=== PATIENT | male | born 1970 | race Caucasian/White ===

== ENCOUNTER 2020-04-11 16:44 | Emergency (ER) | payer OTHER, SELFPAY | END 2020-04-11 19:24 | disposition left against medical advice (07) | PROVIDERS: Emergency Provider Emergency Medicine | DX: R10.9 Unspecified abdominal pain (principal) ==

== ENCOUNTER 2021-03-17 12:00 | Emergency (ER) | payer OTHER, SELFPAY ==
--- NOTE | ~2021-03-17 | XR_ITS ---
EXAMINATION: XR ANKLE, LEFT CLINICAL INFORMATION: Left ankle pain status post injury. COMPARISON: None TECHNIQUE: AP, lateral, and mortise views of the left ankle. FINDINGS: There is an acute, minimally displaced oblique fracture of the distal fibular metadiaphysis with adjacent moderate soft tissue swelling. The distal tibia and tarsal bones are intact. There is normal tarsal alignment. XR/XR ankle LT 2V IMPRESSION: Acute, mildly displaced oblique fracture of the distal fibular metadiaphysis with moderate soft tissue swelling.
[2021-03-17 12:04] VITALS: BP 117/76; PULSE 77; RESP 16; TEMP 36.8; O2SAT 99; BMI 25.8
--- NOTE | 2021-03-17 12:10 | ED_ITS ---
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 No head injury or LOC. Pain worsened with weight bearing. Related Data Previous Rx's Medication Instructions Recorded ibuprofen 600 mg tablet 600 mg PO TID PRN #20 tab 03/17/21 oxycodone 5 mg tablet 5 mg PO Q6H PRN #8 tab 03/17/21 Allergies Allergy/AdvReac Type Severity Reaction Status Date / Time No Known Allergies Allergy Unverified 12/22/19 17:21 Review of Systems Review of Systems: Yes all other systems are reviewed and are negative Constitutional: Constitutional: Reports no additional constitutional complaints, Denies body ache(s), Denies chills, Denies fever(s), Denies headache(s) and Denies weakness Eyes: Eyes: Reports no additional eye complaints and Denies change in vision ENT: Reports system reviewed and no additional complaints, except as documented, Denies dizziness, Denies headache(s), Denies nasal congestion, Denies nasal discharge and Denies neck pain Cardiovascular: Cardiovascular: Reports no additional cardiovascular complaints, Denies chest pain, Denies leg edema and Denies dyspnea Respiratory: Respiratory: Reports no additional respiratory complaints, Denies cough and Denies dyspnea Gastrointestinal: Gastrointestinal: Reports no additional gastrointestinal complaints, Denies abdominal pain, Denies diarrhea, Denies nausea and Denies vomiting Genitourinary: Genitourinary: Denies urinary incontinence Musculoskeletal: Musculoskeletal: Reports no additional musculoskeletal complaints, Denies back pain, Reports arthralgias, Denies joint swelling, Denies neck pain, Denies numbness and Denies tingling Integumentary/Breasts: Skin/Breast: Reports system reviewed and no additional complaints, except as docu and Denies rash Neurologic: Reports system reviewed and no additional complaints, except as documented, Denies Abnormal speech present, Denies dizziness, Denies headache(s), Denies numbness, Denies tingling and Denies weakness PMF Past Medical History Attestation statement: The following information was validated with the patient. Source: old records reviewed and nursing notes reviewed Social History Social History Advance Directives: No Advance Directives Information Provided: No Physical Exam Vital Signs: Vital Signs: Last Vital Signs Temp 98.2 F 03/17/21 12:04 Pulse 77 03/17/21 12:04 Resp 16 03/17/21 12:04 BP 117/76 03/17/21 12:04 Pulse Ox 99 03/17/21 12:04 BMI result Body Mass Index 25.8 Const: General: cooperative, healthy appearing, comfortable and no acute distress Orientation/consciousness: patient oriented x3 Limitations: no limitations HENMT: Head: Yes normal to inspection Ears: hearing grossly normal bilaterally General nose exam: Normal external nose present Face and sinus: Yes normal facial exam Mouth: Normal oral and palatal mucosa present Throat: Yes posterior oropharynx normal Eyes: General: appearance normal, both eyes and all related structures Pupils: Equal, round and reactive pupils present Neck: Neck: Yes normal visual inspection Chest: Chest palpation & inspection: normal inspection of the chest Resp: Effort & Inspection: normal respiratory effort Auscultation: clear to auscultation bilaterally Cardio: Rate: regular rate Rhythm: regular rhythm Peripheral pulses: Peripheral pulses 2+ throughout GI: Inspection: Yes normal to inspection Palpation (GI): Soft to palpation and nontender Auscultation: normal bowel sounds Back/Spine/Pelvis: Thoracic/Lumbar Spine: thoracic and lumbar spine normal to inspection Skin: General skin exam: no rashes or lesions noted Neuro: General: patient oriented x3, no focal motor deficits and normal sensation to monofilament Cranial nerves: Yes Equal, round and reactive pupils present Cognition (Neuro): normal cognition Speech: No Abnormal speech present Gait exam (Neuro): Normal gait present Motor exam (neuro): 5/5 motor strength present throughout Extrem: Other: Tenderness over the medial and lateral ankle with swelling, ecchymosis. No posterior ankle ot calf pain. FROM. 2+ DP/PT pulses General: Yes normal to inspection Course Course Course Narrative: 50yo male here with ankle pain after an inversion injury to the left ankle. Will check x-ray 1245- IMPRESSION: Acute, mildly displaced oblique fracture of the distal fibular metadiaphysis with moderate soft tissue swelling. Will place patient in a posterior splint and given crutches for ambulation for home. Recommend follow-up with Orthopedics the next 1-2 days. Reviewed worrisome signs and symptoms of when to return to the emergency department. Comfortable discharge home. MDM - Extremity (Nontraumatic) Medical Records Attestation: I reviewed the patient's medical records. Lab Data Attestation: I reviewed the patient's lab results. Imaging Data left ronda x-ray: Attestation: I personally reviewed and interpreted this imaging study as follows: Radiologist's impression: IMPRESSION: Acute, mildly displaced oblique fracture of the distal fibular metadiaphysis with moderate soft tissue swelling. Procedures Procedure Narrative Procedure Narrative: crutches Orthopedic Splinting/Casting Injury #1: Side: left Lower Extremity Injury Location: ankle Lower Extremity Immobilizer: posterior splint Other Orthopedic Equipment: crutches Discharge Plan Discharge Clinical Impression: Closed left fibular fracture Patient Disposition: Home, Self-Care Instructions: Leg Fracture (ED) Additional Instructions: Splint stays on at all times. Do not get it wet Elevate the leg on 3 or more pillows. NO weight bearing at all. Call orthopedics tomorrow to be seen Prescriptions: New ibuprofen 600 mg tablet 600 mg PO TID PRN (Reason: pain) Qty: 20 RF: 0 oxycodone 5 mg tablet 5 mg PO Q6H PRN (Reason: pain) Qty: 8 RF: 0 Referrals: Katherine Joseph MD [Physician] - 1 day Physician,Unknown J [Primary Care Provider] - 2 days Interventions: ED Discharge Assessment Last Done: 03/17/21 13:07 Discharge Date/Time: 03/17/21 13:08
== END 2021-03-17 13:08 | disposition home or self-care (01) ==
PROVIDERS: Emergency Provider Emergency Medicine
DX: S82.432A Displaced oblique fracture of shaft of left fibula, initial encounter for closed fracture (principal); X50.1XXA Overexertion from prolonged static or awkward postures, initial encounter; Y93.9 Activity, unspecified; Y92.9 Unspecified place or not applicable; Y99.9 Unspecified external cause status
CPT/HCPCS: 29515; 73600; 99283

== ENCOUNTER 2021-03-31 11:22 | Emergency (ER) | payer OTHER, SELFPAY ==
[2021-03-31 11:29] VITALS: BP 142/90; PULSE 60; O2SAT 100
== END 2021-03-31 17:35 | disposition left against medical advice (07) ==
PROVIDERS: Emergency Provider Emergency Medicine
DX: M25.579 Pain in unspecified ankle and joints of unspecified foot (principal)

== ENCOUNTER 2021-04-01 10:19 | Emergency (ER) | payer OTHER, SELFPAY ==
--- NOTE | ~2021-04-01 | US_ITS ---
EXAMINATION: US VENOUS ULTRASOUND WITH DOPPLER LOWER EXTREMITY, LEFT CLINICAL INFORMATION: Left lower extremity pain. Status post of left ankle fracture on 03/17/2021 COMPARISON: Left lower extremity Doppler venous ultrasound of 09/01/2015. TECHNIQUE: Ultrasound of the deep veins is performed from the hip to the calf with compression sonography and color and pulse Doppler assessment. Spectral analysis with color-flow imaging is performed. FINDINGS: There is normal venous compression and respiratory variation and augmented flow. The visualized common femoral vein, femoral vein, profunda femoral vein, popliteal vein, and the trifurcation region as well as peroneal veins and posterior tibial veins shows no evidence of deep venous thrombosis. There is no significant popliteal fossa cyst. If the patient's symptoms persist, followup ultrasound in 5 days 7 days might be of value to exclude proximal propagation from a non-visualized calf vein. US/US venous duplex LE LT IMPRESSION: No DVT demonstrated in the left lower extremity.
--- NOTE | ~2021-04-01 | XR_ITS ---
EXAMINATION: XR FOOT, LEFT CLINICAL INFORMATION: Foot pain COMPARISON: September 23, 2012 TECHNIQUE: AP, lateral, and oblique views of the left foot. FINDINGS: There is no evidence of acute fracture or dislocation of the left foot. Left foot joint spaces maintained. No radiopaque foreign body. There is some deformity from previous fracture about the medial base of the first proximal phalanx. XR/XR foot LT 2V IMPRESSION: No acute bony abnormality of the left foot identified.
--- NOTE | ~2021-04-01 | XR_ITS ---
EXAMINATION: XR ANKLE, LEFT CLINICAL INFORMATION: Left ankle fracture, follow-up. COMPARISON: 03/17/2021 left ankle radiographs. TECHNIQUE: AP, lateral, and mortise views of the left ankle. FINDINGS: Again seen is a mildly displaced oblique fracture at the level the distal fibular metadiaphysis without significant change. Mild to moderate soft tissue swelling is again noted. XR/XR ankle LT min 3V IMPRESSION: Mildly displaced distal left fibular metadiaphysis fracture without significant change. Soft tissue swelling has mildly decreased.
[2021-04-01 11:48] VITALS: BP 137/88; PULSE 90; RESP 18; TEMP 36.7; O2SAT 98; BMI 24.3
--- NOTE | 2021-04-01 12:18 | ED.LOWEXIN ---
HPI - Extremity Injury (Lower) General Chief Complaint: Extremity Injury, Lower Stated Complaint: L Leg Pain Time Seen by Provider: 04/01/21 12:18 Source: patient Mode of arrival: ambulatory Limitations: no limitations History of Present Illness HPI Narrative: This is a 50-year-old male who presents to the emergency department with left ankle/foot pain x15 days. Patient tells me that he was seen here in the emergency department he was told that he had a fracture 15 days ago, they put a splint on his left lower extremity, and he was told to follow-up with orthopedics, however he has not followed up with Orthopedics. Patient tells me that he was discharged home with crutches and a splint and he has not been using his crutches because he does not like them. He tells me he has been bearing weight on his left lower extremity. He reports 10/10 pain constant severe in nature, worse with ambulation and movement better at rest. He also reports pain in the calf area. He reports numbness, paresthesias, chest pain, shortness of breath, fevers, chills, nausea, vomiting, abdominal pain. Initially this injury was sustained secondary to ankle eversion. MD complaint: ankle injury (left ) Onset (ago): day(s) (15) Type of Injury: eversion Place: street/outdoors Severity: severe Severity scale (1-10): 10 Relieving factors: nothing Exacerbating factors: nothing Context: other (tripped on curb ) Associated symptoms: swelling, able to partially bear weight and ambulatory Other symptoms: none Related Data Previous Rx's Medication Instructions Recorded ibuprofen 600 mg tablet 600 mg PO TID PRN #20 tab 03/17/21 oxycodone 5 mg tablet 5 mg PO Q6H PRN #8 tab 03/17/21 oxycodone 5 mg tablet 5 mg PO Q8H PRN #6 tab 04/01/21 Allergies Allergy/AdvReac Type Severity Reaction Status Date / Time No Known Allergies Allergy Verified 04/01/21 11:48 Review of Systems Review of Systems: Constitutional : No Weight loss, No Fever, No Chills, No Fatigue, No Malaise ENT/Mouth : No sore throat, No Rhinorrhea Eyes: No Eye Pain, No Swelling, No Redness Cardiovascular : No Chest Pain, No SOB, No Dyspnea on Exertion, No Orthopnea, No Edema, No Palpitations Respiratory : No Cough, No Sputum, No Wheezing Gastrointestinal : No Nausea, No Vomiting, No Diarrhea, No Constipation, No abdominal Pain, No Hematochezia, No Melena Genitourinary : No Dysuria, No Urinary Frequency, No Hematuria, Musculoskeletal : + joint pain, No Myalgias, + Joint Swelling Skin : No Skin Lesions, No rash Neuro : No Weakness, No Numbness, No Dizziness, No Headache All other systems reviewed and are negative Yes all other systems are reviewed and are negative [facility] Past Medical History Attestation statement: The following information was validated with the patient. Source: old records reviewed and nursing notes reviewed Medical History No pertinent past medical history Social History Social History Advance Directives: No Advance Directives Information Provided: Yes Physical Exam Vital Signs: Vital Signs: Last Vital Signs Temp 98.0 F 04/01/21 11:48 Pulse 67 04/01/21 14:31 Resp 18 04/01/21 14:31 BP 124/77 04/01/21 14:31 Pulse Ox 98 04/01/21 14:31 BMI result Body Mass Index 24.3 VSS Appearance: Alert.? Oriented X3.? No acute distress.? Head: Normocephalic, atraumatic, no step-offs or deformities Eyes: Pupils equal, round and reactive to light.? ENT: Pharynx normal.? Neck: Normal inspection.? Neck supple.? CVS: Normal heart rate and rhythm.? Pulses normal.? Respiratory: No respiratory distress.? Breath sounds normal.? Abdomen: Soft and nontender.? Skin: Skin warm and dry.? Normal skin color.? Normal skin turgor.? Extremities: + 1+ left sided lower extremity pitting edema from knee down, with ecchymosis. + left sided calf tenderness upon palpation + selvin sign on left and negative on right. Capilary refill 2 +. 5/5 strength to bilateral upper and lower extremities. (images below). 1+ DP,PT pulses on left 2+ on right. Back: No midline tenderness, no C-spine tenderness, full range of motion, no CVA tenderness bilaterally Neuro: Oriented X 3.? No motor deficit.? No sensory deficit. Course Reevaluation(s) Reevaluation #1: TT Sirisha with hx and Xray findings. Time: 13:40 Reevaluation #2: DVT study negative. A posterior short leg splint was applied, patient tolerated procedure well. After application of the splint patient had good sensation, and capillary refill. I have educated him on signs and symptoms of compartment syndrome and have told him if he cannot feel his extremity he should return to be evaluated. Sirisha agrees with of a posterior short leg splint. An outpatient ortho follow-up. I have advised patient to call today to schedule an appointment. I will give patient a few more oxycodone for pain however he should follow-up with orthopedics for further evaluation. Adivsed patient to use crutches and not bear weight on that extremity, as this can cause complications in further injury. Comfortable with discharge home with orthopedic and PCP follow-up. I attest that I have reviewed patients [employer], and at the time prescribing the patient a controlled substance is appropriate based off of patients diagnosis and treatment plan. Time: 15:03 MDM - Extremity Injury (Lower) MDM Narrative Medical decision making narrative: 1226 50-year-old male presents to the emergency department with left lower extremity pain, patient was recently diagnosed 15 days ago with a acute, mildly displaced oblique fracture of the distal fibular metadiaphyses w/ moderate swelling. Patient was given crutches and a splint, patient tells me he has not been using crutches because he does not like them. He has been bearing weight to the left lower extremity. Is also advised to follow-up with orthopedics which he has not done. Physical examination significant for 1+ left sided lower extremity pitting edema from knee down, with ecchymosis. There is left sided calf tenderness upon palpation + selvin sign on left and negative on right. Capilary refill 2 +. 5/5 strength to bilateral upper and lower extremities. (picture below). 1+ DP,PT pulses on left 2+ on right. Based off physical exam findings and patient history I will rule out a DVT in the left lower extremity. It is likely that this is nonhealing fracture as patient has been ambulating on his left lower extremity. And has not followed up with orthopedics. I will obtain plain films of the left ankle and foot to ensure no new fractures are identified, and to ensure that fractures of not progressively worsened Medical Records Attestation: I reviewed the patient's medical records. Lab Data Attestation: I reviewed the patient's lab results. Imaging Data Left foot/ankle x-ray: Attestation: I personally reviewed and interpreted this imaging study as follows: Radiologist's impression: XR/XR ankle LT min 3V IMPRESSION: Mildly displaced distal left fibular metadiaphysis fracture without significant change. Soft tissue swelling has mildly decreased. Critical Care Time Critical Care Time Critical Care Time: No Discharge Plan Discharge Clinical Impression: Closed fracture of left fibula Patient Disposition: Home, Self-Care Instructions: Leg Fracture (ED), Crutch Instructions (ED), ORIF of a Leg Fracture (DC) Additional Instructions: Take your medications as prescribed. If you were prescribed antibiotics today, it is important that you take your medication to their entirety, do not skip any doses, do not finish them early. Please use crutches as instructed, putting weight on this extremity can cause further injury and damage. Follow-up with your primary care provider this week. Call orthopedics TODAY to schedule an appointment Return to the emergency department with new or worsening symptoms. In case of emergency call 911 I attest that I have reviewed patients [employer]PAT, and at the time prescribing the patient a controlled substance is appropriate based off of patients diagnosis and treatment plan. Prescriptions: New oxycodone 5 mg tablet 5 mg PO Q8H PRN (Reason: pain) Qty: 6 RF: 0 No Action ibuprofen 600 mg tablet 600 mg PO TID PRN (Reason: pain) Qty: 20 RF: 0 oxycodone 5 mg tablet 5 mg PO Q6H PRN (Reason: pain) Qty: 8 RF: 0 Referrals: Jeffrey Wilson MD [Physician] - 2 days Physician,Fang J [Primary Care Provider] - 2 days Stand Alone Forms: Work/School Release
[2021-04-01 14:31] VITALS: BP 124/77; PULSE 67; RESP 18; O2SAT 98
== END 2021-04-01 15:43 | disposition home or self-care (01) ==
PROVIDERS: Emergency Provider Emergency Medicine
DX: S82.822A Torus fracture of lower end of left fibula, initial encounter for closed fracture (principal); M79.605 Pain in left leg; X50.1XXA Overexertion from prolonged static or awkward postures, initial encounter; Y93.9 Activity, unspecified; Y92.410 Unspecified street and highway as the place of occurrence of the external cause; Y99.9 Unspecified external cause status
CPT/HCPCS: 29515; 73610; 73620; 93971; 99284

== ENCOUNTER → 2021-04-03 12:24 | Outpatient (BNVA) | payer OTHER, SELFPAY | PROVIDERS: Visit Provider Physician Assistant | DX: S82.832A Other fracture of upper and lower end of left fibula, initial encounter for closed fracture (principal) | CPT/HCPCS: 29085; 99202 ==

== ENCOUNTER 2021-04-05 23:37 | Emergency (ER) | payer OTHER, SELFPAY ==
[2021-04-05 23:44] VITALS: BP 105/70; BP 143/91; PULSE 87; PULSE 88; RESP 16; TEMP 36.6; O2SAT 94; O2SAT 97; BMI 24.3
[2021-04-06 00:16] LABS: COVID-19 Test Negative (Negative)
--- NOTE | 2021-04-06 00:20 | ED.ALCOHOL ---
HPI - Alcohol General Chief Complaint: ETOH/Substance Use Stated Complaint: LEFT LEG PAIN S/P PREVIOUS INJURY PER EMS Time Seen by Provider: 04/05/21 23:47 Source: patient Mode of arrival: EMS Limitations: no limitations History of Present Illness HPI narrative: Patient with left fibular fracture in cast was drinking at a bar slurring his words complaining of chronic pain in the left foot no recent fall or injury Related Data Previous Rx's Medication Instructions Recorded ibuprofen 600 mg tablet 600 mg PO TID PRN #20 tab 03/17/21 oxycodone 5 mg tablet 5 mg PO Q6H PRN #8 tab 03/17/21 oxycodone 5 mg tablet 5 mg PO Q8H PRN #6 tab 04/01/21 tramadol 50 mg tablet 50 mg PO Q6H PRN #15 tab 04/06/21 Allergies Allergy/AdvReac Type Severity Reaction Status Date / Time No Known Allergies Allergy Verified 04/01/21 11:48 Review of Systems Review of Systems: Yes all other systems are reviewed and are negative PMFSH Past Medical History Medical History No pertinent past medical history Social History Social History Advance Directives: No Current occupational status: unemployed Current occupation: rt hand Physical Exam Vital Signs: Vital Signs: Last Vital Signs Temp 97.8 F 04/05/21 23:44 Pulse 87 04/05/21 23:44 Resp 16 04/05/21 23:44 BP 105/70 04/05/21 23:44 Pulse Ox 94 04/05/21 23:44 BMI result Body Mass Index 24.3 Appearance: Alert. Oriented X3. No acute distress. etoh+ ENT: Pharynx normal. Oral Mucosa moist atraumatic normocephalic Neck: Normal inspection. Neck supple. CVS: Normal heart rate and rhythm. Pulses normal. Respiratory: No respiratory distress. Equal air entry bilateral, Abdomen: Soft and nontender. Bowel sounds are present, no mass palpable, no CVA tenderness Skin: Skin warm and dry. Normal skin color. Normal skin turgor. Extremities: No lower extremity edema. No calf tenderness left foot in cast Neuro: Oriented X 3. No motor deficit. Ambulatory MDM - Alcohol Lab Data Labs: Lab Results 04/05/21 Range/Units 23:53 COVID-19 ([facility]) Negative (Negative) COVID-19 Clin Com See Note Discharge Plan Discharge Clinical Impression: Alcoholic intoxication Qualifiers: Complication of substance-induced condition: uncomplicated Qualified Code(s): F10.920 - Alcohol use, unspecified with intoxication, uncomplicated Closed fracture of left distal fibula Qualifiers: Encounter type: subsequent encounter Fracture morphology: unspecified fracture morphology Fracture healing: with routine healing Qualified Code(s): S82.832D - Other fracture of upper and lower end of left fibula, subsequent encounter for closed fracture with routine healing Patient Disposition: Home, Self-Care Instructions: Leg Fracture (ED), Abuse of Alcohol (ED) Additional Instructions: Rest at home keep your left leg elevated Tramadol for increased pain Prescriptions: New tramadol 50 mg tablet 50 mg PO Q6H PRN (Reason: pain) Qty: 15 RF: 0 No Action oxycodone 5 mg tablet 5 mg PO Q8H PRN (Reason: pain) Qty: 6 RF: 0 ibuprofen 600 mg tablet 600 mg PO TID PRN (Reason: pain) Qty: 20 RF: 0 oxycodone 5 mg tablet 5 mg PO Q6H PRN (Reason: pain) Qty: 8 RF: 0
[2021-04-06] MEDS: traMADoL HCL 50 MG TABLET PO (00:45)
== END 2021-04-06 00:48 | disposition home or self-care (01) ==
PROVIDERS: Emergency Provider Internal Medicine
DX: F10.920 Alcohol use, unspecified with intoxication, uncomplicated (principal); Y90.9 Presence of alcohol in blood, level not specified; M79.672 Pain in left foot; Z20.822 Contact with and (suspected) exposure to COVID-19; Z79.899 Other long term (current) drug therapy
CPT/HCPCS: 36415; 87635; 99283

== ENCOUNTER 2021-04-23 12:20 | Outpatient (REF) | payer OTHER, SELFPAY ==
--- NOTE | ~2021-04-23 | XR_ITS ---
EXAMINATION: XR ANKLE, LEFT CLINICAL INFORMATION: Left ankle pain COMPARISON: Left ankle x-rays 04/01/2021 TECHNIQUE: AP, lateral, and mortise views of the left ankle. FINDINGS: Again demonstrated is a mildly displaced fracture of the lateral malleolus. There is been mild interval callus formation although the fracture line is still well-visualized. Ankle mortise appears grossly intact. Soft tissue swelling persists over the lateral ankle. A joint effusion is noted. XR/XR ankle LT min 3V IMPRESSION: Mild interval healing of known lateral malleolus fracture.
== END 2021-04-23 12:21 | disposition home or self-care (01) ==
LOC: HO.HOSX 12:20
PROVIDERS: Visit Provider Physician Assistant
DX: S82.832D Other fracture of upper and lower end of left fibula, subsequent encounter for closed fracture with routine healing (principal)
CPT/HCPCS: 29405; 73610; 99212

== ENCOUNTER 2021-05-15 09:46 | Outpatient (REF) | payer OTHER, SELFPAY ==
--- NOTE | ~2021-05-15 | XR_ITS ---
EXAMINATION: XR ANKLE, LEFT CLINICAL INFORMATION: Pain. COMPARISON: 04/23/2021 TECHNIQUE: AP, lateral, and mortise views of the left ankle. FINDINGS: Once again fracture in the distal fibula is seen. There is widening of the medial mortise here. Diffuse soft tissue swelling is seen. Indistinct fracture margins indicate an element of healing. Probable joint effusion is present. XR/XR ankle LT min 3V IMPRESSION: Once again mildly displaced fracture of the distal fibula is seen. Fracture line still visible. There is widening of the medial mortise. Joint effusion is likely present
== END 2021-05-15 09:47 | disposition home or self-care (01) ==
LOC: HO.HOSX 09:46
PROVIDERS: Visit Provider Physician Assistant
DX: S82.832D Other fracture of upper and lower end of left fibula, subsequent encounter for closed fracture with routine healing (principal)
CPT/HCPCS: 73610; 99212

== ENCOUNTER 2021-06-26 11:54 | Outpatient (REF) | payer OTHER, SELFPAY | END 2021-06-26 11:55 | disposition home or self-care (01) | LOC: HO.HOSX 11:54 | PROVIDERS: Visit Provider Physician Assistant | DX: Z13.89 Encounter for screening for other disorder (principal) ==

== ENCOUNTER 2021-07-30 22:16 | Emergency (ER) | payer OTHER, SELFPAY ==
--- NOTE | 2021-07-30 | ECG_ITS ---
Test Reason : overdose Blood Pressure : / mmHG Vent. Rate : 046 BPM Atrial Rate : 046 BPM P-R Int : 154 ms QRS Dur : 108 ms QT Int : 444 ms P-R-T Axes : 007 003 018 degrees QTc Int : 388 ms Sinus bradycardia Otherwise normal ECG When compared with ECG of 21-MAR-2016 16:24, Vent. rate has decreased BY 32 BPM QT has shortened Referred By: Joann Chapin Electronically Signed By:REJI PEREZ
--- NOTE | ~2021-07-30 | CT_ITS ---
EXAMINATION: CT HEAD WITHOUT CONTRAST CT CERVICAL SPINE WITHOUT CONTRAST CLINICAL INFORMATION: Loss of consciousness. EtOH. COMPARISON: CT head from 03/21/2016. TECHNIQUE: Contiguous axial imaging was performed from the skull base to vertex without intravenous administration of contrast. Contiguous axial imaging was performed from the upper chest through the skull base without intravenous administration of contrast. Coronal and sagittal reformats were obtained at the acquisition workstation. DLP: 1346 mGy-cm FINDINGS: Head: Prominent hyperattenuating left hemispheric subdural hematoma measuring up to 2.4 cm in depth. Associated extensive sulcal effacement of the left cerebral hemisphere and 1.6 cm rightward midline shift. Partial effacement of the left lateral ventricle. The third ventricle is decompressed. The right lateral ventricle is mildly expanded beyond baseline at this time. Few regions of linear hyperattenuation along the left parietal lobe suggestive of small volume subarachnoid blood products. No evidence of overt intraparenchymal hemorrhage at this time. There is moderate medialization of the left-sided uncus with mild rightward deviation of the brainstem. Apparent mild hypoattenuation of the left parietal lobe white matter without demonstrated overt loss of person-white matter differentiation. No acute soft tissue or osseous abnormalities. Mild mucosal thickening of the paranasal sinuses. The mastoid air cells and middle ear cavities are clear. Cervical Spine: Mildly motion degraded exam. The atlantooccipital and atlantoaxial articulations remain well aligned. Congenital fusion of C2-C3. Straightening of the normal cervical lordosis. Otherwise, there is anatomic alignment of the vertebral bodies and posterior elements. No evidence of acute fracture or subluxation. The vertebral body heights are maintained. Mild degenerative disc disease at C3-C4 and C5-C6. There is no prevertebral soft tissue swelling. The thyroid gland and remaining cervical soft tissues are normal in appearance. The lung apices demonstrate no abnormalities. CT/CT cervical spine wo con IMPRESSION: 1. Prominent left hemispheric subdural hematoma with associated 1.6 cm rightward midline shift. Small volume subarachnoid hemorrhagic products along the left parietal lobe. 2. There is effacement of the left lateral mild expansion of the right lateral ventricle concerning for early entrapment. 3. No evidence of acute fracture or traumatic subluxation of the cervical spine. This critical result was discussed with Dr. Chapin at 23:10 on 07/30/2021 and it was ascertained that the content and urgency of the report was understood at the time of direct communication.
[2021-07-30 22:20] VITALS: BP 148/101; PULSE 56; RESP 10; O2SAT 96; BMI 27.5
[2021-07-30 22:33] VITALS: BP 149/96; PULSE 47; O2SAT 96
[2021-07-30 22:38] LABS: Hemoglobin 12.6 g/dl (14.0-18.0); Imm Gran Abs Auto 0.02 X10*3/uL (0.00-0.03); Imm Gran Pct Auto 0.4 % (0.0-0.4); Mean Corpuscular Volume 96.1 fL (80.0-98.0); Monocytes Percent Auto 15.9 % (2-11); Neutrophils Percent Auto 38.9 % (45-73); PLT CLUMP 1; Red Cell Distribution Width 12.8 % (11.0-16.0); SCAN SMEAR FLAG 1
--- NOTE | 2021-07-30 22:38 | MHC.CARE ---
CARE Team attempted to offer pt SUDE, however, pt was unarousable. CARE Team will try again later.
[2021-07-30 22:40] LABS: Basophils Absolute Auto 0.1 X10*3/uL (0.0-0.2); Basophils Percent Auto 0.9 % (0-2); Eosinophils Absolute Auto 0.1 X10*3/uL (0.0-0.4); Eosinophils Percent Auto 2.1 % (0-4); Hematocrit 37.2 % (42.0-52.0); Lymphocytes Absolute Auto 2.2 X10*3/uL (1.2-4.9); Lymphocytes Percent Auto 41.8 % (20-40); Mean Corpuscular HGB Conc 33.9 g/dl (31.0-36.0); Mean Corpuscular Hemoglobin 32.6 pg (27.0-33.0); Monocytes Absolute Auto 0.9 X10*3/uL (0.1-1.2); Neutrophils Absolute Auto 2.1 x10*3/uL (2.0-8.3); Red Blood Count 3.87 X10*6/uL (4.60-5.80)
[2021-07-30 22:43] LABS: Glucose, Whole Blood 145 mg/dL (60-115)
[2021-07-30 22:43] LABS: MANUAL DIFF FLAG NO; Platelet Count 127 X10*3/uL (160-400); White Blood Count 5.3 X10*3/uL (4.8-10.8)
[2021-07-30 22:52] LABS: Ethanol 506 mg/dL
[2021-07-30] MEDS: Rocuronium Bromide 50 MG/5 ML VIAL 100 MG IVPUSH (22:52)
[2021-07-30] MEDS: Etomidate 20 MG/10 ML VIAL IVPUSH (22:52)
[2021-07-30 22:57] LABS: Alanine Aminotransferase 137 U/L (0-40); Albumin Level 4.2 g/dL (3.5-5.0); Alkaline Phosphatase 142 U/L (39-117); Anion Gap 14 (12-20); Aspartate Amino Transferase 205 U/L (5-37); Bilirubin Direct 0.2 mg/dL (0.0-0.5); Bilirubin Total 0.4 mg/dL (0.0-1.0); Blood Urea Nitrogen 8 mg/dL (9-16); Calcium 8.6 mg/dL (8.4-10.2); Carbon Dioxide 31 mmol/L (22-29); Chloride 101 mmol/L (96-108); Creatinine Clr Calc Pharmacy 126.8; Estimated Glomerular Filt Rate > 60; Glucose Random 167 mg/dL (60-115); Potassium 4.1 mmol/L (3.3-5.1); Sodium 142 mmol/L (135-145); Total Protein 7.1 g/dL (6.5-8.0)
--- NOTE | 2021-07-30 23:01 | ED_ITS ---
HPI - General Adult General Chief complaint: Overdose Stated complaint: ?OVERDOSE. 6MG NARCAN GIVEN Time Seen by Provider: 07/30/21 22:20 Source: EMS Mode of arrival: EMS Limitations: no limitations History of Present Illness HPI narrative: Patient comes to the emergency room via EMS. EMS reports that police found him unresponsive, unconscious in the street. Unknown downtime. Patient is known to come to the emergency room for alcohol intoxication. Police department and EMS gave the patient 2 mg x 3 intranasal Narcan without any response. When patient arrived to the emergency room, patient was unresponsive. Related Data Previous Rx's Medication Instructions Recorded ibuprofen 600 mg tablet 600 mg PO TID PRN #20 tab 03/17/21 tramadol 50 mg tablet 50 mg PO Q6H PRN #15 tab 04/06/21 Allergies Allergy/AdvReac Type Severity Reaction Status Date / Time No Known Allergies Allergy Verified 05/15/21 12:36 Review of Systems Review of Systems: Yes Unobtainable due to mental condition [facility] Past Medical History Medical History (Updated 07/30/21 @ 23:15 by Joann Chapin MD) Alcohol abuse No pertinent past medical history Social History Social History Advance Directives: No Advance Directives Information Provided: Yes Current occupational status: unemployed Current occupation: rt hand Physical Exam ED Vital Signs: Vital Signs - 24 hr 07/30/21 22:20 07/30/21 22:33 07/30/21 23:09 Pulse Rate 56 47 L 84 Respiratory Rate 10 L 18 Blood Pressure 148/101 H 149/96 H 156/114 H Pulse Oximetry 96 96 100 07/30/21 23:23 Pulse Rate 70 Respiratory Rate 18 Blood Pressure 143/106 H Pulse Oximetry 100 BMI result Body Mass Index 27.5 Const Other: Appearance: Unresponsive Eyes: Pupils equal, round and reactive to light. non pinpoint pupils ENT: Pharynx normal. Neck: Normal inspection. Neck supple. No lymph nodes noted. No crepitus, n palpable step offs CVS: Normal heart rate and rhythm. Pulses normal. Normal S1 and S2 Respiratory: No respiratory distress. Breath sounds normal. No Wheezing. No rales Abdomen: Soft and nontender. No rigidity. No distention. Skin: Patient has abrasions to behind the right ear and the forehead on the right side, no lacerations, no active bleeding Extremities: No lower extremity edema. No Lacerations. No Rash Neuro: Patient is unresponsive, GCS 4, occasionally extends arms to painful stimuli, otherwise no response Psych: Unable to assess Course Course Course Narrative: Patient was taken to CT scan. I interpreted the CT scan, shows large left subdural hematoma approx 2 cm wide with approximately +1 cm shift. Radiology report pending [facility] has been contacted. EMS is on the way. Patient was intubated with a size 8 tube, rocuronium 100 mg and etomidate 20 were used. Patient's initial vital signs show hypertension, bradycardia, decreased respiratory rate. Patient likely has increased intracranial pressure, Patient was given 1000 mg of IV Keppra, mannitol 80 mg, midazolam drip. Patient sitting up to 30 degrees [facility] trauma team and Neurosurgery are not available at this time. I discussed the patient with Dr. Meyer from the ED at [facility], patient being transferred ED to ED Procedures Intubation Time out performed: Yes sedative: Etomidate Mg Given: 20 paralytic: Rocuronium Mg Given: 100 Laryngoscope: other (GlideScope) ET Tube Size: 8 ET Tube Uncuffed: No Tube Secured Depth (cm): 23 Tube Secured Location: lips Tube Placement Confirmation: visualized tube passing through cords, equal breath sounds bilaterally, no breath sounds over epigastrium and confirmation by capnometry Patient Tolerated Procedure: well and no complications Intubation Complications: none Medical Decision Making Lab Data Result diagrams: 07/30/21 22:33 07/30/21 22:33 Labs: Lab Results 07/30/21 07/30/21 07/30/21 Range/Units 22:28 22:33 22:33 WBC 5.3 (4.8-10.8) X10*3/uL RBC 3.87 L (4.60-5.80) X10*6/uL Hgb 12.6 L (14.0-18.0) g/dl Hct 37.2 L (42.0-52.0) % MCV 96.1 (80.0-98.0) fL MCH 32.6 (27.0-33.0) pg MCHC 33.9 (31.0-36.0) g/dl RDW 12.8 (11.0-16.0) % Plt Count 127 L (160-400) X10*3/uL MPV 10.0 (9.4-12.4) fL Immature Gran % (Auto) 0.4 (0.0-0.4) % Neut % (Auto) 38.9 L (45-73) % Lymph % (Auto) 41.8 H (20-40) % [facility] % (Auto) 15.9 H (2-11) % Eos % (Auto) 2.1 (0-4) % Baso % (Auto) 0.9 (0-2) % Lymph # (Auto) 2.2 (1.2-4.9) X10*3/uL [facility] # (Auto) 0.9 (0.1-1.2) X10*3/uL Eos # (Auto) 0.1 (0.0-0.4) X10*3/uL Baso # (Auto) 0.1 (0.0-0.2) X10*3/uL Abs Immat Gran (auto) 0.02 (0.00-0.03) X10*3/uL Absolute Neuts (auto) 2.1 (2.0-8.3) x10*3/uL Absolute Nucleated RBC 0.000 (0.0-0.012) X10*3/uL Nucleated RBC % (auto) 0.0 (0.0-0.2) /100WBC Sodium 142 (135-145) mmol/L Potassium 4.1 (3.3-5.1) mmol/L Chloride 101 (96-108) mmol/L Carbon Dioxide 31 H (22-29) mmol/L Anion Gap 14 (12-20) BUN 8 L (9-16) mg/dL Creatinine 0.72 (0.5-1.4) mg/dL Estim Creat Clear Calc 126.8 Estimated GFR > 60 POC Glucose 145 H (60-115) mg/dL Random Glucose 167 H (60-115) mg/dL Calcium 8.6 (8.4-10.2) mg/dL Total Bilirubin 0.4 (0.0-1.0) mg/dL Direct Bilirubin 0.2 (0.0-0.5) mg/dL AST 205 H (5-37) U/L ALT 137 H (0-40) U/L Alkaline Phosphatase 142 H (39-117) U/L Total Protein 7.1 (6.5-8.0) g/dL Albumin 4.2 (3.5-5.0) g/dL Urine Opiates Screen (Not Detect) Urine Fentanyl Screen (Not Detect) Ur Barbiturates Screen (Not Detect) Ur Phencyclidine Scrn (Not Detect) Ur Amphetamines Screen (Not Detect) U Benzodiazepines Scrn (Not Detect) Urine Cocaine Screen (Not Detect) U Marijuana (THC) Screen (Not Detect) Ethyl Alcohol mg/dL COVID-19 (GAVIN) (Negative) COVID-19 Clin Com 07/30/21 07/30/21 07/30/21 Range/Units 22:33 22:57 23:21 WBC (4.8-10.8) X10*3/uL RBC (4.60-5.80) X10*6/uL Hgb (14.0-18.0) g/dl Hct (42.0-52.0) % MCV (80.0-98.0) fL MCH (27.0-33.0) pg MCHC (31.0-36.0) g/dl RDW (11.0-16.0) % Plt Count (160-400) X10*3/uL MPV (9.4-12.4) fL Immature Gran % (Auto) (0.0-0.4) % Neut % (Auto) (45-73) % Lymph % (Auto) (20-40) % [facility] % (Auto) (2-11) % Eos % (Auto) (0-4) % Baso % (Auto) (0-2) % Lymph # (Auto) (1.2-4.9) X10*3/uL [facility] # (Auto) (0.1-1.2) X10*3/uL Eos # (Auto) (0.0-0.4) X10*3/uL Baso # (Auto) (0.0-0.2) X10*3/uL Abs Immat Gran (auto) (0.00-0.03) X10*3/uL Absolute Neuts (auto) (2.0-8.3) x10*3/uL Absolute Nucleated RBC (0.0-0.012) X10*3/uL Nucleated RBC % (auto) (0.0-0.2) /100WBC Sodium (135-145) mmol/L Potassium (3.3-5.1) mmol/L Chloride (96-108) mmol/L Carbon Dioxide (22-29) mmol/L Anion Gap (12-20) BUN (9-16) mg/dL Creatinine (0.5-1.4) mg/dL Estim Creat Clear Calc Estimated GFR POC Glucose (60-115) mg/dL Random Glucose (60-115) mg/dL Calcium (8.4-10.2) mg/dL Total Bilirubin (0.0-1.0) mg/dL Direct Bilirubin (0.0-0.5) mg/dL AST (5-37) U/L ALT (0-40) U/L Alkaline Phosphatase (39-117) U/L Total Protein (6.5-8.0) g/dL Albumin (3.5-5.0) g/dL Urine Opiates Screen Not Detected (Not Detect) Urine Fentanyl Screen Not Detected (Not Detect) Ur Barbiturates Screen Not Detected (Not Detect) Ur Phencyclidine Scrn Not Detected (Not Detect) Ur Amphetamines Screen Not Detected (Not Detect) U Benzodiazepines Scrn Not Detected (Not Detect) Urine Cocaine Screen Not Detected (Not Detect) U Marijuana (THC) Screen Not Detected (Not Detect) Ethyl Alcohol 506 H* mg/dL COVID-19 (GAVIN) Negative (Negative) COVID-19 Clin Com See Note Imaging Data CT of the head and cervical spine: Radiologist's impression: FINDINGS: Head: Prominent hyperattenuating left hemispheric subdural hematoma measuring up to 2.4 cm in depth. Associated extensive sulcal effacement of the left cerebral hemisphere and 1.6 cm rightward midline shift. Partial effacement of the left lateral ventricle. The third ventricle is decompressed. The right lateral ventricle is mildly expanded beyond baseline at this time. Few regions of linear hyperattenuation along the left parietal lobe suggestive of small volume subarachnoid blood products. No evidence of overt intraparenchymal hemorrhage at this time. There is moderate medialization of the left-sided uncus with mild rightward deviation of the brainstem. Apparent mild hypoattenuation of the left parietal lobe white matter without demonstrated overt loss of person-white matter differentiation. No acute soft tissue or osseous abnormalities. Mild mucosal thickening of the paranasal sinuses. The mastoid air cells and middle ear cavities are clear. Cervical Spine: Mildly motion degraded exam. The atlantooccipital and atlantoaxial articulations remain well aligned. Congenital fusion of C2-C3. Straightening of the normal cervical lordosis. Otherwise, there is anatomic alignment of the vertebral bodies and posterior elements. No evidence of acute fracture or subluxation. The vertebral body heights are maintained. Mild degenerative disc disease at C3-C4 and C5-C6. There is no prevertebral soft tissue swelling. The thyroid gland and remaining cervical soft tissues are normal in appearance. The lung apices demonstrate no abnormalities. CT/CT head/brain wo con IMPRESSION: 1. Prominent left hemispheric subdural hematoma with associated 1.6 cm rightward midline shift. Small volume subarachnoid hemorrhagic products along the left parietal lobe. ? 2. There is effacement of the left lateral mild expansion of the right lateral ventricle concerning for early entrapment. ? 3. No evidence of acute fracture or traumatic subluxation of the cervical spine. Critical Care Time Critical Care Time Critical Care Time: Yes Total Critical Care Time: 100 Attestation: I have personally provided critical care time. Time includes review of lab data, radiology results, discussion with consultants, and monitoring for potential decompensation. Intervention performed as documented. Discharge Plan Discharge Clinical Impression: Acute subdural hematoma Patient Disposition: [facility] Transfer Details: [facility] ED to ED Prescriptions: No Action ibuprofen 600 mg tablet 600 mg PO TID PRN (Reason: pain) Qty: 20 0RF tramadol 50 mg tablet 50 mg PO Q6H PRN (Reason: pain) Qty: 15 0RF Interventions: Acute Care Transfer Worksheet (ED) Last Done: 07/31/21 00:10 Discharge Date/Time: 07/31/21 00:11
[2021-07-30] MEDS: levETIRAcetam in NaCl (iso-os) 1,000 MG/100 ML PIGGYBACK 400 MG IV (23:04)
[2021-07-30 23:07] VITALS: O2SAT 100
[2021-07-30 23:08] VITALS: BP 156/114; PULSE 64; O2SAT 100
--- NOTE | 2021-07-30 23:08 | PC.NURSE ---
call out to [facility] transfer [phone] @[id number] spoke to Megan regarding transfer
[2021-07-30 23:09] VITALS: BP 156/114; PULSE 84; RESP 18; O2SAT 100
[2021-07-30] MEDS: Midazolam HCl/NS 50 MG/50 ML PLAST..BAG IVCONT (23:09)
[2021-07-30 23:15] LABS: Amphetamine Screen Urine Not Detected (Not Detect); Barbiturates, Urine Not Detected (Not Detect); Benzodiazepines Screen Urine Not Detected (Not Detect); Cannabinoid Screen Urine Not Detected (Not Detect); Cocaine Screen Urine Not Detected (Not Detect); Fentanyl, urine Not Detected (Not Detect); Opiate Screen Urine Not Detected (Not Detect); Phencyclidine Screen Urine Not Detected (Not Detect)
[2021-07-30 23:23] VITALS: BP 143/106; PULSE 70; RESP 18; O2SAT 100
--- NOTE | 2021-07-30 23:27 | PC.NURSE ---
call out to [facility] @ 2312 for ALS transfer
[2021-07-30] MEDS: MannitoL 12.5 GM/50 ML VIAL IV (23:43)
--- NOTE | 2021-07-30 23:59 | PC.NURSE ---
This RN assumed care upon patient arrival. Patient barely responsive to sternal rub, 20g IV placed in Left AC, labs drawn. Patient bradycardic, taken for CT scan. Upon results of CT, decision was made to intubate. Patient medicated per MAR, intubated with 8in tube, 24cm at teeth, patient tolerated procedure. Versed drip ordered, nursing instructed to titrate per needed by Dr. Chapin, no parameters ordered. Patient taken to [facility].
[2021-07-31 00:10] LABS: COVID-19 Test Negative (Negative)
== END 2021-07-31 00:11 | disposition short-term general hospital (02) ==
PROVIDERS: Emergency Provider Emergency Medicine
DX: S06.5X9A Traumatic subdural hemorrhage with loss of consciousness of unspecified duration, initial encounter (principal); F10.10 Alcohol abuse, uncomplicated; X58.XXXA Exposure to other specified factors, initial encounter; Y93.9 Activity, unspecified; Y92.410 Unspecified street and highway as the place of occurrence of the external cause; Y99.9 Unspecified external cause status; Z20.822 Contact with and (suspected) exposure to COVID-19
CPT/HCPCS: 31500; 36415; 70450; 72125; 80048; 80076; 80307; 82077; 82947; 85025; 85610; 87635; 93005; 94002; 96365; 96375; 99285; 99291; 99292; J1953; J2150; J2250

== ENCOUNTER 2021-12-31 11:14 | Emergency (ER) | payer OTHER, SELFPAY ==
[2021-12-31 11:27] VITALS: BP 120/78; PULSE 73; RESP 18; TEMP 36.9; O2SAT 98; BMI 51.6
[2021-12-31 16:16] VITALS: BP 123/77; PULSE 80; RESP 18; TEMP 37; O2SAT 98
--- NOTE | 2021-12-31 16:17 | ED.GENADULT ---
HPI - General Adult General Chief complaint: Extremity Problem Stated complaint: painful infection on leg after cast removal Time Seen by Provider: 12/31/21 12:00 Source: patient Mode of arrival: ambulatory Limitations: no limitations History of Present Illness HPI narrative: Patient is a 51 year old male presenting to the emergency department today with left ankle pain. Patient states that for the last few days he has had redness, swelling, and pain of his left ankle. Patient states that he is a daily alcohol drinker. Patient denies any dizziness, lightheadedness, abdominal pain, nausea, vomiting, fever, chills, blurry vision, double vision, loss of vision, chest pain, difficulty breathing, shortness of breath, back pain, night sweats, pain with urination, increased urinary frequency, increased urinary urgency, blood in his urine or stool, syncope or a near syncopal episode, recent trauma or falls, bowel incontinence, bladder incontinence, bowel retention, bladder retention, or any other complaints at this time. Onset (ago): day(s) Location: left and lower extremity (ankle) Radiation: non-radiation Severity: mild Severity scale (1-10): 2 Quality: dull Pain Consistency: constant Relieving factors: none Exacerbating factors: none Associated symptoms: denies other symptoms Treatments prior to arrival: none Related Data Previous Rx's Medication Instructions Recorded ibuprofen 600 mg tablet 600 mg PO TID PRN pain #20 tabs 03/17/21 tramadol 50 mg tablet 50 mg PO Q6H PRN pain #15 tabs 04/06/21 colchicine 0.6 mg capsule 0.6 mg PO DAILY #14 caps 12/31/21 Allergies Allergy/AdvReac Type Severity Reaction Status Date / Time No Known Allergies Allergy Verified 05/15/21 12:36 Review of Systems Constitutional: Constitutional: Reports no additional constitutional complaints, Denies chills, Denies fever(s) and Denies night sweats Eyes: Eyes: Reports no additional eye complaints, Denies blurry vision, Denies change in vision, Denies diplopia, Denies eye discharge, Denies loss of vision and Denies eye pain ENT: Denies dizziness Cardiovascular: Cardiovascular: Reports no additional cardiovascular complaints, Denies chest pain, Denies lightheadedness, Denies Loss of Consciousness and Denies dyspnea Respiratory: Respiratory: Reports no additional respiratory complaints and Denies dyspnea Gastrointestinal: Gastrointestinal: Reports no additional gastrointestinal complaints, Denies abdominal pain, Denies melena, Denies hematochezia, Denies change in bowel habits and Denies change in stool character Genitourinary: Genitourinary: Reports no additional male genitourinary complaints, Denies hematuria, Denies oliguria, Denies difficulty urinating, Denies dysuria, Denies urinary frequency, Denies urinary hesitancy, Denies urinary incontinence and Denies urinary urgency Musculoskeletal: Musculoskeletal: Reports no additional musculoskeletal complaints, Denies numbness and Denies tingling Comments: left ankle pain, swelling Neurologic: Denies dizziness, Denies loss of vision, Denies numbness and Denies tingling Psychiatric: Psychiatric: Reports no additional psychiatric complaints Endocrine: Endocrine: Reports no additional endocrine complaints Hematologic/Lymphatic: Hematologic/Lymphatic: Reports no additional hematologic/lymphatic complaints Allergic/Immunologic: Allergic/Immunologic: Reports no additional allergic/immunologic complaints PMFSH Past Medical History Attestation statement: The following information was validated with the patient. Source: old records reviewed Medical History Alcohol abuse No pertinent past medical history Social History Social History Alcohol intake: current Alcohol intake frequency: 0-2 drinks per day Alcohol type: beer Patient Tobacco Use Status: Never used Tobacco Use of substances other than those prescribed or required for medical reasons: No Advance Directives: No Advance Directives Information Provided: No Current occupational status: unemployed Current occupation: rt hand Physical Exam ED Vital Signs: Vital Signs - 24 hr 12/31/21 11:27 12/31/21 16:16 Temperature 98.4 F 98.6 F Pulse Rate 73 80 Respiratory Rate 18 18 Blood Pressure 120/78 123/77 Pulse Oximetry 98 98 Oxygen Delivery Method Room Air Room Air BMI result Body Mass Index 51.6 Const General: cooperative, no acute distress, alert and awake Nutritional Appearance: well nourished Orientation/consciousness: patient oriented x3 Limitations: no limitations HENMT Head: Yes normal to inspection and Yes atraumatic Ears: hearing grossly normal bilaterally and external ears normal General nose exam: Normal external nose present, no nasal discharge noted and no epistaxis Face and sinus: Yes normal facial exam, No abrasion and No laceration Mouth: Normal oral and palatal mucosa present, no drooling and no muffled voice Eyes General: appearance normal, both eyes and all related structures Periorbital: periorbital findings normal Eyelids: Yes eyelids normal Conjunctivae: conjunctivae normal Pupils: Equal, round and reactive pupils present EOM: EOMs intact bilaterally Neck Neck: Yes normal visual inspection, Yes full ROM and Yes no lymphadenopathy Chest Chest palpation & inspection: normal inspection of the chest Resp Effort & Inspection: normal respiratory effort and able to speak in complete sentences Auscultation: clear to auscultation bilaterally Cardio Rate: regular rate Rhythm: regular rhythm GI Inspection: Yes normal to inspection Neuro General: patient oriented x3 and moves all extremities Cranial nerves: Yes Equal, round and reactive pupils present Cognition (Neuro): normal cognition Motor exam (neuro): 5/5 motor strength present throughout Sensory Exam: Normal double simultaneous stimulation for sensation Coordination: [id number] test normal Extrem General: Yes normal to inspection, Yes full ROM and Yes capillary refill normal Psych Appearance: grossly normal Mental Status: mental status grossly normal Affect: normal affect Attitude: cooperative Thought process: Normal thought process present Thought content: Normal thought content present Insight: Good insight present (Psych) Medical Decision Making MDM Narrative Medical decision making narrative: Patient is a 51 year old male presenting to the emergency department today with left ankle pain. Patient's physical exam was unremarkable. Patient's clinical presentation is most consistent with gout. I explained my physical exam findings to the patient. I answered all questions asked by the patient. Patient received IM Toradol which he stated helped his pain significantly. I stressed the importance of the patient taking his medication as prescribed. I stressed the importance of the patient following up with his primary care provider. I stressed the importance of the patient returning to the emergency department immediately if his symptoms were to worsen or if he were to develop any dizziness, shortness of breath, difficulty breathing, chest pain, blurry vision, loss of vision, nausea, vomiting, abdominal pain, fever, chills, back pain, or any other complaints. Patient verbalized agreement and understanding with this treatment plan and discharge. Medical Records Medical records reviewed: Yes I reviewed the patient's medical records. Discharge Plan Discharge Clinical Impression: Gout Patient Disposition: Home, Self-Care Instructions: Gout (ED) Additional Instructions: Follow up with your primary care provider. Return to the emergency department immediately if your symptoms worsen or if you develop any dizziness, shortness of breath, difficulty breathing, chest pain, blurry vision, loss of vision, nausea, vomiting, abdominal pain, fever, chills, back pain, or any other complaints. Prescriptions: New colchicine 0.6 mg capsule 0.6 mg PO DAILY Qty: 14 0RF No Action ibuprofen 600 mg tablet 600 mg PO TID PRN (Reason: pain) Qty: 20 0RF tramadol 50 mg tablet 50 mg PO Q6H PRN (Reason: pain) Qty: 15 0RF Ref[place]: [facility] [place]] (Call to establish and follow up with a primary care provider. If you already have a primary care provider, please follow up with them. ) [facility] [place] (Call to establish and follow up with a primary care provider. If you already have a primary care provider, please follow up with them. ) [facility] [place] Group] (Call to establish and follow up with a primary care provider. If you already have a primary care provider, please follow up with them. ) Interventions: ED Discharge Assessment Last Done: 12/31/21 16:40 Discharge Date/Time: 12/31/21 16:41 Print Language: Kyrgyz
[2021-12-31] MEDS: Ketorolac Tromethamine 15 MG/ML VIAL IM (16:37)
== END 2021-12-31 16:41 | disposition home or self-care (01) ==
PROVIDERS: Emergency Provider Emergency Medicine
DX: M10.9 Gout, unspecified (principal); Z79.899 Other long term (current) drug therapy
CPT/HCPCS: 96372; 99284; J1885

== ENCOUNTER 2022-04-12 01:58 | Emergency (ER) | payer OTHER, SELFPAY ==
[2022-04-12] VITALS (7 sets, daily range): BP systolic 98–137; BP diastolic 55–101; PULSE 76–94; RESP 11–20; TEMP 36.3–37.2; O2SAT 94–98; BMI 27.3
--- NOTE | 2022-04-12 | ECG_ITS ---
Test Reason : chest pain Blood Pressure : / mmHG Vent. Rate : 069 BPM Atrial Rate : 069 BPM P-R Int : 156 ms QRS Dur : 108 ms QT Int : 414 ms P-R-T Axes : 061 -17 003 degrees QTc Int : 443 ms Normal sinus rhythm with sinus arrhythmia Normal ECG When compared with ECG of 30-JUL-2021 22:21, Vent. rate has increased BY 23 BPM QT has lengthened Referred By: Christi Angeles Electronically Signed By:REJI PEREZ
--- NOTE | ~2022-04-12 | XR_ITS ---
EXAMINATION: XR CHEST CLINICAL INFORMATION: Chest pain COMPARISON: 06/04/2015 TECHNIQUE: 2 views of the chest were obtained. FINDINGS: No significant abnormality is noted involving the heart, lungs, mediastinum, bony thorax or soft tissues. XR/XR chest 2V IMPRESSION: Unremarkable examination.
--- NOTE | ~2022-04-12 | XR_ITS ---
EXAMINATION: XR ABDOMEN KUB CLINICAL INDICATION: Abdominal pain COMPARISON: None TECHNIQUE: AP view of the abdomen. FINDINGS: The bowel gas pattern is normal with no evidence of ileus or obstruction. No unusual soft tissue calcifications are noted. The bones are unremarkable. XR/XR KUB IMPRESSION: Unremarkable examination.
--- NOTE | 2022-04-12 02:35 | ED.GENADULT ---
HPI - General Adult General Chief complaint: General Medical Stated complaint: Etoh,Fever,Cough Time Seen by Provider: 04/12/22 02:35 Source: patient Mode of arrival: EMS History of Present Illness HPI narrative: This is a 51-year-old male who is brought in by EMS and is reporting chest pain, dizziness, fevers and cough for 2 weeks, but states that he drank 5 beers this evening and that his girlfriend is out of town. Patient states that his stomach is not been feeling well but denies any urinary symptoms, diarrhea. Related Data Previous Rx's Medication Instructions Recorded ibuprofen 600 mg tablet 600 mg PO TID PRN pain #20 tabs 03/17/21 tramadol 50 mg tablet 50 mg PO Q6H PRN pain #15 tabs 04/06/21 colchicine 0.6 mg capsule 0.6 mg PO DAILY #14 caps 12/31/21 Allergies Allergy/AdvReac Type Severity Reaction Status Date / Time No Known Allergies Allergy Verified 05/15/21 12:36 Review of Systems Review of Systems: Pertinent positives and negatives as stated in HPI. [facility] Past Medical History Source: nursing notes reviewed Medical History Alcohol abuse No pertinent past medical history Social History Social History Alcohol intake: current Alcohol intake frequency: 3 or more drinks per day Alcohol type: beer Patient Tobacco Use Status: Never used Tobacco Smoked in Last 30 Days: Yes Use of substances other than those prescribed or required for medical reasons: No Advance Directives: No Advance Directives Information Provided: No Current occupational status: unemployed Current occupation: rt hand Physical Exam ED Vital Signs: Vital Signs - 24 hr 04/12/22 02:03 04/12/22 04:17 Temperature 98.9 F 97.8 F Pulse Rate 76 94 Respiratory Rate 18 13 Blood Pressure 134/85 124/79 Pulse Oximetry 98 96 Oxygen Delivery Method Room Air Room Air BMI result Body Mass Index 27.3 VITAL SIGNS: Reviewed. GENERAL: Well developed, well nourished, in no acute distress. HEAD: Normocephalic/atraumatic EYES: PERRLA, EOMI EARS: Ext canals without abnormality OROPHARYNX: no oral lesions noted, posterior pharynx clear LUNGS: Normal breath sounds. No adventitious sounds or accessory muscle use. SpO2<98> CARDIOVASCULAR: Regular rate and rhythm without noted murmurs ABDOMEN: Soft, non-tender, non-distended with bowel sounds, scars consistent with prior intra-abdominal surgery MUSCULOSKELETAL: No tenderness, deformities, or effusions noted on gross inspection. EXTREMITIES: No cyanosis, clubbing or edema. SKIN: Inspection of the skin reveals no rashes NEUROLOGIC: Alert and oriented x 4. Strength and sensation to light touch were grossly intact x 4. Medical Decision Making Medical Decision Making MDM Narrative: 51-year-old male who presents with chest pain and not feeling well. My review and interpretation of patient's workup is patient appears to be leukopenic with chronically stable anemia with chronically elevated liver enzymes likely reflective of patient's underlying alcohol use disorder, viral testing is negative, combination of troponin and EKG do not suggest ACS (heart score-3). Patient is otherwise intoxicated, was placed on a CIWA and will be observed here in the emergency room until he is able to ambulate with a steady gait. 0445: Patient placed in physician observation because the patient needed more time for sobriety. At the time observation was started the patient's vital signs were stable, patient is alert and oriented, neuro: Nonfocal, CV RRR, lungs clear Differential Diagnosis Differential Diagnoses: The differential diagnosis associated with the presentation includes Obstruction, gastritis, pancreatitis Lab Data MDM Lab Attestation statement: I reviewed the patient's lab results. Please see above for discussion 04/12/22 03:41 04/12/22 03:41 Labs: Lab Results 04/12/22 04/12/22 04/12/22 Range/Units 02:17 02:17 03:41 WBC (4.8-10.8) X10*3/uL RBC (4.60-5.80) X10*6/uL Hgb (14.0-18.0) g/dl Hct (42.0-52.0) % MCV (80.0-98.0) fL MCH (27.0-33.0) pg MCHC (31.0-36.0) g/dl RDW (11.0-16.0) % Plt Count (160-400) X10*3/uL MPV (9.4-12.4) fL Immature Gran % (Auto) (0.0-0.4) % Neut % (Auto) (45-73) % Lymph % (Auto) (20-40) % [place] % (Auto) (2-11) % Eos % (Auto) (0-4) % Baso % (Auto) (0-2) % Lymph # (Auto) (1.2-4.9) X10*3/uL [place] # (Auto) (0.1-1.2) X10*3/uL Eos # (Auto) (0.0-0.4) X10*3/uL Baso # (Auto) (0.0-0.2) X10*3/uL Abs Immat Gran (auto) (0.00-0.03) X10*3/uL Absolute Neuts (auto) (2.0-8.3) x10*3/uL Absolute Nucleated RBC (0.0-0.012) X10*3/uL Nucleated RBC % (auto) (0.0-0.2) /100WBC Sodium 142 (135-145) mmol/L Potassium 3.8 (3.3-5.1) mmol/L Chloride 103 (96-108) mmol/L Carbon Dioxide 24 (22-29) mmol/L Anion Gap 19 (12-20) BUN 8 L (9-16) mg/dL Creatinine 0.68 (0.5-1.4) mg/dL Estim Creat Clear Calc 124.3 Estimated GFR > 60 Random Glucose 112 (60-115) mg/dL Calcium 8.8 (8.4-10.2) mg/dL Total Bilirubin 0.7 (0.0-1.0) mg/dL AST 208 H (5-37) U/L ALT 78 H (0-40) U/L Alkaline Phosphatase 144 H (39-117) U/L Troponin I High Sens (<3.5-35.0) ng/L Total Protein 7.8 (6.5-8.0) g/dL Albumin 4.4 (3.5-5.0) g/dL Lipase 71 (8-78) U/L Ethyl Alcohol mg/dL COVID-19 (GAVIN) Negative (Negative) COVID-19 Clin Com See Note Influenza Type A (HARRY) Negative (Negative) Influenza Type B (HARRY) Negative (Negative) Influenza A & B Note See Note 04/12/22 04/12/22 04/12/22 Range/Units 03:41 03:41 03:41 WBC 2.8 L (4.8-10.8) X10*3/uL RBC 4.27 L (4.60-5.80) X10*6/uL Hgb 13.4 L (14.0-18.0) g/dl Hct 38.6 L (42.0-52.0) % MCV 90.4 (80.0-98.0) fL MCH 31.4 (27.0-33.0) pg MCHC 34.7 (31.0-36.0) g/dl RDW 13.4 (11.0-16.0) % Plt Count 62 L D (160-400) X10*3/uL MPV 10.6 (9.4-12.4) fL Immature Gran % (Auto) 0.4 (0.0-0.4) % Neut % (Auto) 49.9 (45-73) % Lymph % (Auto) 37.0 (20-40) % [place] % (Auto) 10.9 (2-11) % Eos % (Auto) 1.1 (0-4) % Baso % (Auto) 0.7 (0-2) % Lymph # (Auto) 1.1 L (1.2-4.9) X10*3/uL [place] # (Auto) 0.3 (0.1-1.2) X10*3/uL Eos # (Auto) 0.0 (0.0-0.4) X10*3/uL Baso # (Auto) 0.0 (0.0-0.2) X10*3/uL Abs Immat Gran (auto) 0.01 (0.00-0.03) X10*3/uL Absolute Neuts (auto) 1.4 L (2.0-8.3) x10*3/uL Absolute Nucleated RBC 0.000 (0.0-0.012) X10*3/uL Nucleated RBC % (auto) 0.0 (0.0-0.2) /100WBC Sodium (135-145) mmol/L Potassium (3.3-5.1) mmol/L Chloride (96-108) mmol/L Carbon Dioxide (22-29) mmol/L Anion Gap (12-20) BUN (9-16) mg/dL Creatinine (0.5-1.4) mg/dL Estim Creat Clear Calc Estimated GFR Random Glucose (60-115) mg/dL Calcium (8.4-10.2) mg/dL Total Bilirubin (0.0-1.0) mg/dL AST (5-37) U/L ALT (0-40) U/L Alkaline Phosphatase (39-117) U/L Troponin I High Sens 5.4 (<3.5-35.0) ng/L Total Protein (6.5-8.0) g/dL Albumin (3.5-5.0) g/dL Lipase (8-78) U/L Ethyl Alcohol 439 H* mg/dL COVID-19 (GAVIN) (Negative) COVID-19 Clin Com Influenza Type A (HARRY) (Negative) Influenza Type B (HARRY) (Negative) Influenza A & B Note Independent Interpretation I performed an independent interpretation of an: EKG Interpretation: Sinus rhythm, HR-69, no STEMI, OR/QTC are within normal limits. Discharge Plan Discharge Clinical Impression: Atypical chest pain, Gastritis, Alcohol intoxication, Alcohol use disorder Patient Disposition: Still a Patient Prescriptions: No Action ibuprofen 600 mg tablet 600 mg PO TID PRN (Reason: pain) Qty: 20 0RF tramadol 50 mg tablet 50 mg PO Q6H PRN (Reason: pain) Qty: 15 0RF colchicine 0.6 mg capsule 0.6 mg PO DAILY Qty: 14 0RF
[2022-04-12 02:42] LABS: COVID-19 Test Negative (Negative); IDNOW Serial# 16C4AD1C; IDNOW Serial# BCCEAD1C; Influenza A Negative (Negative); Influenza B2 Negative (Negative)
--- OUTSIDE RECORDS SUMMARY | 2022-04-12 02:48 | XMS_ITS | Continuity of Care Document ---
:1970 Author Organization [facility] Address [address] [place] [address]- Care Team Providers Name Role Phone Not on Staff, PCP Primary Care Physician Unavailable [facility] - 04/12/20 [facility] [address] [place] [address]- Encounter Diagnosis Chest wall pain (Final) - 04/12/20 Discharge Disposition: A-D/C Home Attending Physician: Tej Tavares DO Admitting Physician: Tej Tavares DO Referring Physician: Not on Staff, Referring MD Allergies, Adverse Reactions, Alerts Substance Reaction Severity Status NKA Active Immunizations Given and Recorded Vaccine Date Status Refusal Reason influenza virus vaccine, inactivated 03/02/18 Given influenza virus vaccine, inactivated 01/27/17 Given influenza virus vaccine, inactivated 05/26/16 Given influenza virus vaccine, inactivated1 01/30/12 Given rabies vaccine, human diploid cell2 12/03/15 Given rabies vaccine, human diploid cell 11/19/15 Given Rabies Immune Globulin, Human3 11/19/15 Given pneumococcal 23-valent vaccine4 05/12/12 Given tetanus/diphtheria/pertussis, acel(Tdap) 07/01/08 Given Not Given Vaccine Date Status Refusal Reason influenza virus vaccine, inactivated 02/18/15 Not Given Patient Refuses 1Admin Note: VIS 7-122Result Comment: med not scanning new distributer per fellow [email or web address] Comment: INJECTIONS GIVEN BILATERAL THIGHS AND BILATERAL UPPER [id number] Note: vis given vis date 07/13 Medications CPAP Machine See Instructions, # 1 each, Maintenance, AutoCPAP 8-20, 03/24/19 13:40:00 EST, Compound Start Date: 03/24/19 Status: OrderedLorazepam = 1 mg, 0 Refills, Maintenance, 06/16/18 12:52:54 EDT Start Date: 06/16/18 Status: OrderedNicotine 7 mg/24 hour patch 1 patch, Topically, Daily, # 30 patch, 1 Refills, Maintenance, 07/29/18 15:00:46 EDT, Patch, 1 patchTopically Daily Start Date: 07/29/18 Status: OrderedQuetiapine 400 mg, By Mouth, Refills 0, Maintenance, 06/16/18 12:53:31 EDT Start Date: 06/16/18 Status: OrderedTriazolam 0.25 mg, By Mouth, Daily at bedtime, Refills 0, Maintenance, 06/16/18 12:52:28 EDT Start Date: 06/16/18 Status: OrderedVenlafaxine = 75 mg, By Mouth, 0 Refills, Maintenance, 06/16/18 12:51:51 EDT Start Date: 06/16/18 Status: Orderedvenlafaxine 150 mg oral capsule, extended release 150 mg, 1, capsule, By Mouth, Daily, # 30 capsule, Refills 0, Maintenance, 03/02/18 8:23:24 EST Start Date: 03/02/18 Status: Ordered Problem List Condition Effective Dates Status Health Status Informant Diarrhea(Confirmed) Active Rib fracture, chronic. left lateral Active 5th.(Confirmed) Obstructive sleep apnea(Confirmed) Active *BHN/BHCP/CP-Lida Sheridan Active [phone]/Health correction, active care coordination(Confirmed) Results Radiology Reports Exam Date Time Procedure Performing Provider Status 04/12/20 2:58 PM Chest 2 Views Frontal and Lat Renay Salter; [place] (Verified) Notes:(Chest 2 Views Frontal and Lat) Reason For Exam: Other:RESULT: Chest 2 Views Frontal and Lat Chest 2 Views Frontal and Lat Hx of Present Illness: Pain x 1 month. Pain exacerbated by palp and movement. Breathing is non-labored, no cough. Patient reports fractured rib and hematoma hemothorax 2 years ago but no recent injury Reason: Chest pain. COMPARISON: July 22, 2017 FINDINGS: LINES AND TUBES: None. LUNGS AND PLEURA: Clear lungs. Normal pulmonary vascularity. No pleural effusion. No pneumothorax. HEART, MEDIASTINUM AND YOMI: Heart is normal in size. Normal upper mediastinal and hilar contour. BONES AND SOFT TISSUES: No acute abnormality. Deformity of the left lateral sixth and ninth ribs from prior fractures. IMPRESSION: No acute abnormality. WSN: [id number] Ordering Physician: Michelle Nguyen Dictated By: Aureliano Harris MD Dictated Date/Time: 04/12/20 3:04 pm Reviewed By: Aureliano Harris MD Signed By: Aureliano Harris MD Signed Date/Time: 04/12/20 3:04 pm Transcribed By: MICHAEL Transcribed Date/Time: 04/12/20 3:01 pm Vital Signs Most recent to oldest 1 2 3 [Reference Range]: Oxygen Saturation [94-100 %] 98 % 98 % 98 % (04/12/20 3:45 PM) (04/12/20 1:32 PM) (04/12/20 11:47 AM) Pulse Rate [55-90 bpm] 78 bpm 80 bpm 92 bpm (04/12/20 3:45 PM) (04/12/20 1:32 PM) *H* (04/12/20 11:47 AM ) Blood Pressure [90-138/55-84 mm 133/90 mm Hg 135/92 mm Hg 143/91 mm Hg Hg] (04/12/20 3:45 PM) (04/12/20 1:32 PM) *H* (04/12/20 11:47 AM ) Respiratory Rate [16-30 br/min] 16 br/min 16 br/min 16 br/min (04/12/20 3:45 PM) (04/12/20 1:32 PM) (04/12/20 11:47 AM) Temperature [96.8-100.4 DegF] 98.6 DegF (04/12/20 11:47 AM) Mode of Delivery (Oxygen) Room air Room air (04/12/20 3:45 PM) (04/12/20 11:47 AM) Blood pressure sites Arm, left Arm, left Arm, right (04/12/20 3:45 PM) (04/12/20 1:32 PM) (04/12/20 11:47 AM) Temperature Route Oral (04/12/20 11:47 AM) Social History Social History Type Response Smoking Status Current every day smoker; Ot her: 6-10/ day; entered on: 02/17/15 Sex
--- OUTSIDE RECORDS SUMMARY | 2022-04-12 02:48 | XMS_ITS | Continuity of Care Document ---
:1970 Author Organization [facility] Address [address] [place] [address]- Care Team Providers Name Role Phone Ness Katie CHILELit Primary Care Physician [facility]s): 10/17/21 - 11/16/21 [facility] [address], [place] [address] Allergies, Adverse Reactions, Alerts No Known Allergies Immunizations Given and Recorded Vaccine Date Status Refusal Reason SARS-CoV-2 (COVID-19) mRNA BNT-162b2 vac 08/20/20 Recorde d SARS-CoV-2 (COVID-19) mRNA BNT-162b2 vac 07/30/20 Recorde d influenza virus vaccine, inactivated 03/13/20 Recorded influenza virus vaccine, inactivated 03/02/18 Given influenza [...] vaccine, inactivated 02/18/15 Not Given Patient Refuses SARS-CoV-2 mRNA ([id number]) vax 08/23/21 Not Giv en Patient Refuses 1Admin Note: VIS 7-122Result Comment: 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 Start Date: 10/04/21 Status: OrderedcloNIDine 0.1 mg oral tablet 0.1 mg, 1, tablet, By Mouth, 2 times a day, # 180 tablet, Refills 0, Maintenance, 10/04/21 12:30:00 EDT, Partial fill upon patient request if the prescription is for a schedule II opioid drug. Start Date: 10/04/21 Status: Orderedfolic acid 1 mg oral tablet 1 mg, 1, tablet, By Mouth, Daily, # 30 tablet, Refills 6, Tot. Refills 6, Maintenance, 09/11/21 11:33:00 EDT, Route to Pharmacy Electronically, [facility]/pharmacy #[id number], Partial fill upon patient request if the prescription is for a schedule II opioid drug.... Start Date: 09/11/21 Status: Orderedgabapentin 100 mg oral capsule 100 mg, 1, capsule, By Mouth, 3 times a day, # 90 capsule, Refills 3, Tot. Refills 3, Maintenance, 09/11/21 11:32:00 EDT, Route to Pharmacy Electronically, [facility]/pharmacy #[id number], Partial fill upon patientrequest if the prescription is for a schedule II... Start Date: 09/11/21 Status: Orderedlacosamide 200 mg oral tablet 1 tablet = 200 mg, By Mouth, 2 times a day, # 60 tablet, 3 Refills, Maintenance, 09/11/21 11:33:00 EDT, Tablet, [facility]/pharmacy #[id number], Partial fill upon patient request if the prescription is for a schedule II opioid drug., 172, cm, 08/26/21 17:24:00 EDT... Start Date: 09/11/21 Status: OrderedlevETIRAcetam 500 mg oral tablet 3 tablets, By Mouth, 2 times a day, # 180 tablet, 3 Refills, Maintenance, 09/11/21 11:37:00 EDT, Tablet, [facility]pharmacy [id number], Partial fill upon patient request if the prescription is for a schedule II opioid drug., 172, cm, 08/26/21 17:24:00 EDT, Victorina... Start Date: 09/11/21 Stop Date: 01/09/22 Status: Orderedmelatonin 5 mg oral tablet By Mouth, Daily at bedtime, PRN Insomnia, 0 Refills, Maintenance, 08/26/21 16:34:00 EDT, Tablet, Partial fill upon patient request if the prescription is for a schedule II opioid drug. Start Date: 08/26/21 Status: Orderedpyridoxine 50 mg oral tablet 50 mg, 1, tablet, By Mouth, Daily, # 100 tablet, Refills 3, Tot. Refills 3, Maintenance, 09/11/21 11:36:00 EDT, Route to Pharmacy Electronically, [facility]/pharmacy #[id number], Partial fill upon patient request if the prescription is for a schedule II opioid laine... Start Date: 09/11/21 Status: OrderedSEROquel 25 mg oral tablet 25 mg, 1, tablet, By Mouth, Daily in AM, 1 am and 2 hs, # 30 tablet, Refills 6, Tot. Refills 6, Maintenance, 09/11/21 11:34:00 EDT, Route to Pharmacy Electronically, [facility]/pharmacy #[id number], Partial fill upon patient request if the prescription is for a sc... Start Date: 09/11/21 Stop Date: 04/09/22 Status: Orderedthiamine 100 mg oral tablet 100 mg, 1, tablet, By Mouth, Daily, # 100 tablet, Refills 6, Tot. Refills 6, Maintenance, 09/11/21 11:39:00 EDT, Route to Pharmacy Electronically, [facility]/pharmacy #[id number], Partial fill upon patient request if the prescription is for a schedule II opioid dr... Start Date: 09/11/21 Status: Ordered Problem List Condition Effective Dates Status Health Status Informant ALD (alcoholic liver 07/31/20 Active disease)(Confirmed) Rib fracture, chronic. left lateral Active 5th.(Confirmed) History of alcoholism(Confirmed) Active Anxiety and depression(Confirmed) Active IAN (obstructive sleep Active apnea)(Confirmed) Seizure disorder(Confirmed) Active TBI (traumatic brain Active injury)(Confirmed) Social History Social History Type Response Smoking Status Current every day smoker; Ot her: 6-10/ day; entered on: 02/17/15 Sex
--- OUTSIDE RECORDS SUMMARY | 2022-04-12 02:48 | XMS_ITS | Continuity of Care Document ---
:1970 Author Organization [facility] Address [address] [place] [address]- Care Team Providers Name Role Phone Gallo Ness DO Primary Care Physician [facility]): 09[facility]21 - 10/10/21 [facility] [address] [place], [place] [address] [place] Allergies, Adverse Reactions, Alerts No Known Allergies [...] 02/18/15 Not Given Patient Refuses SARS-CoV-2 mRNA ([id number]) vax 08/23/21 Not Giv en Patient Refuses 1Admin Note: VIS 7-122Result Comment: med not scanning new distributer per fellow [email or web address] Comment: INJECTIONS GIVEN BILATERAL THIGHS AND BILATERAL UPPER [id number] Note: vis given vis date 07/13 Medications [...] 09/11/21 11:33:00 EDT, Route to Pharmacy Electronically, [facility]/pharmacy #[id number], Partial fill upon patient request if [...] opioid drug., 172, cm, 08/26/21 17:24:00 EDT, Horaceigh... Start Date: 09/11/21 Stop Date: 01/09/22 Status: [...] 09/11/21 11:36:00 EDT, Route to Pharmacy Electronically, [facility]/pharmacy #[id number], Partial fill upon patient request if [...] 09/11/21 11:39:00 EDT, Route to Pharmacy Electronically, [facility]/pharmacy #[id number], Partial fill upon patient request if the prescription is for a schedule II opioid dr... Start Date: 09/11/21 Status: Ordered Problem List Condition Effective Dates Status Health Status Informant ALD (alcoholic liver 07/31/20 Active disease)(Confirmed) Rib fracture, chronic. left lateral Active 5th.(Confirmed) History of alcoholism(Confirmed) Active Anxiety and depression(Confirmed) Active IAN (obstructive sleep Active apnea)(Confirmed) *BHN/BHCP/CP-Sabine Bruce Active [phone]/Health halfway, active care coordination(Confirmed) Seizure disorder(Confirmed) Active TBI (traumatic brain Active injury)(Confirmed) Social History Social History Type Response Smoking Status Current every day smoker; Ot her: 6-10/ day; entered on: 02/17/15 Sex
--- OUTSIDE RECORDS SUMMARY | 2022-04-12 02:48 | XMS_ITS | Continuity of Care Document ---
:1970 Author Organization [facility] Address [address] [place] [address]- Care Team Providers Name Role Phone Tim Riley DO Primary Care Physician [facility] 12/06/20 - 01/05/[address] [address] Attending Physician: Admtr, Niurka Admitting Physician: Admtr, Ar8 Referring Physician: Admtr, Ar8 Allergies, Adverse Reactions, Alerts Substance Reaction Severity [...] med not scanning new distributer per fellow [email or web address] Comment: INJECTIONS GIVEN BILATERAL THIGHS AND BILATERAL UPPER [id number] Note: vis given vis date 07/13 Medications acamprosate 333 mg oral delayed release tablet 2 tablet = 666 mg, By Mouth, 3 times a day, Take 666 mg three times per day., # 180 tablet, 1 Refills, Maintenance, 08/14/20 8:55:00 EDT, TERESE Tablet, [facility], Partial fill upon patient request if the prescription is for a schedul... Start Date: 08/14/20 Stop Date: 10/13/20 Status: OrderedCPAP Machine See Instructions, # 1 each, Maintenance, AutoCPAP 8-20, 03/24/19 13:40:00 EST, Compound Start Date: 03/24/19 Status: Ordereddiclofenac 1% topical gel 1 application, Topically, 4 times a day, PRN Pain , Moderate, [place]: Lower back not to exceed 32 grams/day, # 100 Gm, 0 Refills, Maintenance, 10/19/20 15:39:00 EDT, Gel, [facility], Partial fill upon patient request if the prescript... Start Date: 10/19/20 Stop Date: 11/02/20 Status: Orderedlidocaine 5% topical ointment 1 application, Topically, 3 times a day, PRN Pain , Moderate, Print instructions in tongan wash hands thoroughly after application, # 50 Gm, 0 Refills, Maintenance, 07/23/20 11:42:00 EDT, Ointment, [facility], Partial fill upon patie... Start Date: 07/23/20 Status: OrderedLorazepam = 1 mg, 0 Refills, [...] Informant ALD (alcoholic liver 07/31/20 Active disease)(Confirmed) Diarrhea(Confirmed) Active Rib fracture, chronic. left lateral Active 5th.(Confirmed) Obstructive sleep apnea(Confirmed) Active *BHN/BHCP/CP-Sabine Bruce Active [phone]/[facility], active care coordination(Confirmed) Social History Social History Type Response Smoking Status Current every day smoker; Ot her: 6-10/ day; entered on: 02/17/15 Sex
--- OUTSIDE RECORDS SUMMARY | 2022-04-12 02:48 | XMS_ITS | Continuity of Care Document ---
:[address] [facility] Address [address] [place] [address]- Care Team Providers Name Role Phone Tim Riley DO Primary Care Physician Encounter [facility] [facility] Date(s): 11/30/20 - 01/05/[address] [address] Attending Physician: Solitario Syed MD Admitting Physician: Solitario Syed MD Referring Physician: Solitario Syed MD Allergies, Adverse Reactions, Alerts Substance Reaction [...] med not scanning new distributer per fellow [email or web address] Comment: INJECTIONS GIVEN BILATERAL THIGHS AND BILATERAL UPPER [id number] Note: vis given vis date 07/13 Medications acamprosate 333 mg oral delayed release tablet 2 tablet = 666 mg, By Mouth, 3 times a day, Take 666 mg three times per day., # 180 tablet, 1 Refills, Maintenance, 08/14/20 8:55:00 EDT, CR Tablet, [facility], Partial fill upon patient request if the prescription is for a schedul... Start Date: 08/14/20 Stop Date: 10/13/20 Status: OrderedCPAP Machine See Instructions, # 1 each, Maintenance, AutoCPAP 8-20, 03/24/19 13:40:00 EST, Compound Start Date: 03/24/19 Status: Ordereddiclofenac 1% topical gel 1 application, Topically, 4 times a day, PRN Pain , Moderate, Nigerian: Lower back not to exceed 32 grams/day, # 100 Gm, 0 Refills, Maintenance, 10/19/20 15:39:00 EDT, Gel, [facility], Partial fill upon patient request if the prescript... Start Date: 10/19/20 Stop Date: 11/02/20 Status: Orderedlidocaine 5% topical ointment 1 application, Topically, 3 times a day, PRN Pain , Moderate, Print instructions in swedish wash hands thoroughly after application, # 50 Gm, 0 Refills, Maintenance, 07/23/20 11:42:00 EDT, Ointment, [facility], Partial fill upon patie... Start Date: [...] Obstructive sleep apnea(Confirmed) Active *BHN/BHCP/CP-Sabine Bruce Active [phone]/Health senior living, active care coordination(Confirmed) Social History Social History Type Response Smoking Status Current every day smoker; Ot her: 6-10/ day; entered on: 02/17/15 Sex
--- OUTSIDE RECORDS SUMMARY | 2022-04-12 02:48 | XMS_ITS | Continuity of Care Document ---
:1970 Author Organization [facility] Address [address] [place] [address]- Care Team Providers Name Role Phone Gallo Ness DO Primary Care Physician [facility] Date[facility]s): 09/24/21 - 10/24/21 [facility] [address], [place] [address] Allergies, Adverse Reactions, Alerts No Known [...] 02/18/15 Not Given Patient Refuses SARS-CoV-2 mRNA (pvprovl-xcmf-musls) vax 08/23/21 Not Giv en Patient Refuses 1Admin Note: VIS 7-122Result Comment: med not scanning new distributer per fellow [id number] Comment: INJECTIONS GIVEN BILATERAL THIGHS AND BILATERAL UPPER [id number] Note: vis given vis date 07/13 Medications [...] 09/11/21 11:33:00 EDT, Route to Pharmacy Electronically, [facility]/pharmacy #[id number], Partial fill upon patient request [...] II opioid drug. Start Date: 08/26/21 Status: OrderedoxyCODONE 5 mg oral tablet 5 mg, 1, tablet, By Mouth, Every 6 hours, PRN, for 7 days, # 28 tablet, Refills 0, Tot. Refills 0, Acute 10/30/21 9:15:00 EDT, Pain , Moderate, 10/23/21 9:15:00 EDT, Route to Pharmacy Electronically, [facility] 3, Partial fill upon patient... Start Date: 10/23/21 Stop Date: 10/30/21 Status: Orderedpyridoxine 50 mg oral tablet 50 mg, 1, tablet, By Mouth, Daily, # 100 tablet, Refills 3, Tot. Refills 3, Maintenance, 09/11/21 11:36:00 EDT, Route to Pharmacy Electronically, [facility]/pharmacy #[id number], Partial fill upon patient request if the prescription is for a schedule II opioid laine... Start Date: 09/11/21 Status: OrderedSEROquel 25 mg oral tablet 25 mg, 1, tablet, By Mouth, Daily in AM, 1 am and 2 hs, # 30 tablet, Refills 6, Tot. Refills 6, Maintenance, 09/11/21 11:34:00 EDT, Route to Pharmacy Electronically, [facility]/pharmacy #[id number], Partial fill upon patient request if the prescription is for a sc... Start Date: 09/11/21 Stop Date: 04/09/22 Status: Orderedthiamine 100 mg oral tablet 100 mg, 1, tablet, By Mouth, Daily, # 100 tablet, Refills 6, Tot. Refills 6, Maintenance, 09/11/21 11:39:00 EDT, Route to Pharmacy Electronically, [id number], [...]
--- OUTSIDE RECORDS SUMMARY | 2022-04-12 02:48 | XMS_ITS | Continuity of Care Document ---
:1970 Author Organization [facility] Address [address] [place] [address]- Care Team Providers Name Role Phone Riley Tim CHILEL Primary Care Physician [facility] Date[facility]s): 08/09/20 - 09/08/20 [facility] [address], [place] [address] Allergies, Adverse Reactions, Alerts Substance Reaction Severity [...] med not scanning new distributer per fellow [id number] Comment: INJECTIONS GIVEN BILATERAL THIGHS AND BILATERAL UPPER [id number] Note: vis given vis date 07/13 Medications acamprosate 333 mg oral delayed release tablet 2 tablet = 666 mg, By Mouth, 3 times a day, Take 666 mg three times per day., # 180 tablet, 1 Refills, Maintenance, 08/14/20 8:55:00 EDT, CR Tablet, [facility], Partial fill upon patient request if the prescription is for a schedul... Start Date: 08/14/20 Stop Date: 10/13/20 Status: OrderedCPAP Machine See Instructions, # 1 each, Maintenance, AutoCPAP 8-20, 03/24/19 13:40:00 EST, Compound Start Date: 03/24/19 Status: Orderedlidocaine 5% topical ointment 1 application, Topically, 3 times a day, PRN Pain , Moderate, Print instructions in khmer wash hands thoroughly after application, # 50 Gm, 0 Refills, Maintenance, 07/23/20 11:42:00 EDT, [facility] upon [facility]ie... Start Date: 07/23/20 [...] Obstructive sleep apnea(Confirmed) Active *BHN/BHCP/CP-Sabine Bruce Active [phone]/Health senior living, active care coordination(Confirmed) Social History Social History Type Response Smoking Status Current every day smoker; Ot her: 6-10/ day; entered on: 02/17/15 Sex
--- OUTSIDE RECORDS SUMMARY | 2022-04-12 02:48 | XMS_ITS | Continuity of Care Document ---
:1970 Author Organization [address], [address] [place] [address]- Care Team Providers Name Role Phone Gallo Ness DO Primary Care Physician Encounter [facility] Date(s): 11/06/21 - 12/06/[address], [address] [place], [place] [address] Attending Physician: Admtr, Can8 Admitting Physician: Admtr, Ar8 Referring Physician: Admtr, Ar8 Allergies, Adverse Reactions, Alerts No Known Allergies [...] 02/18/15 Not Given Patient Refuses SARS-CoV-2 mRNA (ioowoes-qcrx-plzar) vax 08/23/21 Not Giv en Patient Refuses 1Admin Note: VIS 7-122Result Comment: med not scanning new distributer per fellow [id number] Comment: INJECTIONS GIVEN BILATERAL THIGHS AND BILATERAL UPPER [id number] Note: vis given vis date 07/13 Medications [...] 09/11/21 11:33:00 EDT, [facility] to [facility], [id number], [...] opioid drug., 172, cm, 08/26/21 17:24:00 EDT, [place]... Start Date: 09/11/21 Stop Date: 01/09/22 Status: [...] 11:36:00 EDT, Route to Pharmacy Electronically, [facility]/pharmacy #[id number], Partial fill upon patient request if the prescription is for a schedule II opioid laine... Start Date: 09/11/21 Status: OrderedSEROquel 25 mg oral tablet 25 mg, 1, tablet, By Mouth, Daily in AM, 1 am and 2 hs, # 30 tablet, Refills 6, Tot. Refills 6, Maintenance, 09/11/21 11:34:00 EDT, Route to Pharmacy Electronically, [facility]/pharmacy #[id number], Partial fill upon patient request if the prescription is for a sc... Start Date: 09/11/21 Stop Date: 04/09/22 Status: Orderedthiamine 100 mg oral tablet 100 mg, 1, tablet, By Mouth, Daily, # 100 tablet, Refills 6, Tot. Refills 6, Maintenance, 09/11/21 11:39:00 EDT, Route to Pharmacy Electronically, [facility]/pharmacy #[id number], Partial fill upon patient request if [...] her: 6-10/ day; entered on: 02/17/15 Sex Care Team PersonnelName: Gallo Ness DO Address: [address] [place] [address]
--- OUTSIDE RECORDS SUMMARY | 2022-04-12 02:48 | XMS_ITS | Continuity of Care Document ---
:1970 Author Organization [facility] Address [address] [place] [address]- Care Team Providers Name Role Phone Gallo Ness DO Primary Care Physician [facility] Date[facility]s): 10/04/21 - 11/03/21 [facility] [address] [place], [place] [address] Attending Physician: Niurka Espino Admitting Physician: AdmtrNiurka Referring Physician: Admtr, ArArlin Allergies, Adverse Reactions, Alerts No Known Allergies [...] 02/18/15 Not Given Patient Refuses SARS-CoV-2 mRNA (cuiolro-xhok-vvbcn) vax 08/23/21 Not Giv en Patient Refuses 1Admin Note: VIS 7-122Result Comment: med not scanning new distributer per fellow [id number] Comment: INJECTIONS GIVEN BILATERAL THIGHS AND BILATERAL UPPER [id number] Note: vis given vis date 07/13 Medications [...] opioid drug., 172, cm, 08/26/21 17:24:00 EDT, Heigh... Start Date: 09/11/21 Stop Date: 01/09/22 Status: [...] EDT, Route to Pharmacy Electronically, [facility]/pharmacy #[id number], Partial fill upon patient request if the prescription is for a schedule II opioid laine... Start Date: 09/11/21 Status: OrderedSEROquel 25 mg oral tablet 25 mg, 1, tablet, By Mouth, Daily in AM, 1 am and 2 hs, # 30 tablet, Refills 6, Tot. Refills 6, Maintenance, 09/11/21 11:34:00 EDT, Route to Pharmacy Electronically, [facility]/pharmacy #[id number], Partial fill upon patient request if the prescription is for a sc... Start Date: 09/11/21 Stop Date: 04/09/22 Status: Orderedthiamine 100 mg oral tablet 100 mg, 1, tablet, By Mouth, Daily, # 100 tablet, Refills 6, Tot. Refills 6, Maintenance, 09/11/21 11:39:00 EDT, Route to Pharmacy Electronically, [facility]/pharmacy #[id number], Partial fill upon patient request if [...] Status Current every day smoker; Ot her: - day; entered on: 02/17/15 Sex
--- OUTSIDE RECORDS SUMMARY | 2022-04-12 02:49 | XMS_ITS | Continuity of Care Document ---
:1970 Author Organization [facility] Address [address] [place] [address]- Care Team Providers Name Role Phone Riley Tim CHILEL Primary Care Physician [facility] Date(s): 07/25/20 - 08/24/20 [facility] [address] [place], [place] [address] Allergies, Adverse Reactions, Alerts Substance Reaction [...] med not scanning new distributer per fellow [id number] Comment: INJECTIONS GIVEN BILATERAL THIGHS AND BILATERAL UPPER [id number] Note: vis given vis date 07/13 Medications acamprosate 333 mg oral delayed release tablet 2 tablet = 666 mg, By Mouth, 3 times a day, Take 666 mg three times per day., # 180 tablet, 1 Refills, Maintenance, 08/14/20 8:55:00 EDT, CR Tablet, [facility], Partial fill upon patient request if the prescription is for a schedul... Start Date: 08/14/20 Stop Date: 10/13/20 Status: OrderedCPAP Machine See Instructions, # 1 each, Maintenance, AutoCPAP 8-20, 03/24/19 13:40:00 EST, Compound Start Date: 03/24/19 Status: Orderedlidocaine 5% topical ointment 1 application, Topically, 3 times a day, PRN Pain , Moderate, Print instructions in hungarian wash hands thoroughly after application, # 50 Gm, 0 Refills, Maintenance, 07/23/20 11:42:00 EDT, [facility]ie... Start Date: [...] Obstructive sleep apnea(Confirmed) Active *BHN/BHCP/CP-Sabine Bruce Active [phone]/Health [facility], active care coordination(Confirmed) Social History Social History Type Response Smoking Status Current every day smoker; Ot her: 6-10/ day; entered on: 02/17/15 Sex
--- OUTSIDE RECORDS SUMMARY | 2022-04-12 02:49 | XMS_ITS | Continuity of Care Document ---
:1970 Author Organization [facility] Address [address] [place] [address]- Care Team Providers Name Role Phone Gallo Ness DO Primary Care Physician [facility] Date[facility]s): 01/02/22 - 02/20/22 [facility] [address] [place], [place] [address] Attending Physician: Karthikeyan Zamora MD Admitting Physician: Karthikeyan Zamora MD Referring Physician: Gallo Ness DO Allergies, Adverse Reactions, Alerts No Known Allergies [...] 02/18/15 Not Given Patient Refuses SARS-CoV-2 mRNA (hnurzen-zuoc-dbras) vax 08/23/21 Not Giv en Patient Refuses 1Admin Note: VIS 7-122Result Comment: med not scanning new distributer per fellow [id number] Comment: INJECTIONS GIVEN BILATERAL THIGHS AND BILATERAL UPPER [id number] Note: vis given vis date 07/13 Medications [...] 09/11/21 11:36:00 EDT, [id number], [...] 09/11/21 11:39:00 EDT, Route to Pharmacy Electronically, [facility]/pharmacy #[id number], Partial fill upon patient request if the prescription is for a schedule II opioid dr... Start Date: 09/11/21 Status: Ordered Problem List Condition Confirmation Course Effective Dates Status Health Stat us Informant ALD (alcoholic Confirmed 07/31/20 Active liver disease) Rib fracture, Confirmed Active chronic. left lateral 5th. History of Confirmed Active alcoholism Anxiety and Confirmed Active depression IAN (obstructive Confirmed Active sleep apnea) Seizure disorder Confirmed Active TBI (traumatic Confirmed Active brain injury) Social History Social History Type Response Smoking Status Current every day smoker; Ot her: 6-10/ day; entered on: 02/17/15 Sex Patient Care team information Care Team PersonnelName: Jonathan Cartwright RN Position: [facility] RN Member Role: Primary Care Nurse Name: Tej Lara RN Position: S RN Member Role: Primary Care Nurse Name: Josette Ladd RN Position: S RN Member Role: Primary Care Nurse Name: Bianka Black RN Position: S RN Member Role: Primary Care Nurse Name: Jimenez Ventura RN Position: S RN Member Role: Primary Care Nurse Name: Yoselin Dhillon RN Position: [facility] RN Member Role: Primary Care Nurse Name: Gallo Ness DO Position: [facility] Resident Member Role: PCP Address: Address: [address] [place] [address] [place] [address]- Name: Elisa Aguero RN Position: [facility] RN Member Role: Primary Care Nurse Name: Olena Romero Position: [facility] RN Member Role: Primary Care Nurse Care Team Related PersonsName: JESSY KING Address: home [address] [place] [address] Name: NO ONE, PER PATIENT Name: MARIA ESTHER GUPTA Address: home [address] [place] [address]
--- OUTSIDE RECORDS SUMMARY | 2022-04-12 02:49 | XMS_ITS | Continuity of Care Document ---
:1970 Author Organization [facility] Address [address] [place] [address], [address] [place] [address]- Care Team Providers Name Role Phone Not on Staff, PCP Primary Care Physician Unavailable Encounter [facility] Date(s): 08/13/21 - 09/18/[address], [address] [place], [place] [address] Attending Physician: Nicole Camacho DO Allergies, Adverse Reactions, Alerts No Known Allergies Immunizations Given and Recorded Vaccine Date Status Refusal Reason SARS-CoV-2 (COVID-19) mRNA BNT-162b2 vac 08/20/20 Recorde d SARS-CoV-2 (COVID-19) mRNA BNT-162b2 vac 07/30/20 Recorde d influenza virus vaccine, inactivated 03/13/20 Recorded Not Given Vaccine Date Status Refusal Reason SARS-CoV-2 mRNA (dxzvjdn-kbcd-yjyja) vax 08/23/21 Not Giv en Patient Refuses Medications docusate sodium 150 mg/15 ml oral liquid 10 mL = 100 mg, By Mouth, 2 times a day, PRN Constipation, 0 Refills, Maintenance, 08/26/21 16:34:00EDT, Liquid, Partial fill upon patient request if the prescription is for a schedule II opioid drug. Start Date: 08/26/21 Status: Orderedfolic acid 1 mg oral tablet 1 mg, 1, tablet, By Mouth, Daily, # 30 tablet, Refills 6, Tot. Refills 6, Maintenance, 09/11/21 11:33:00 EDT, Route to Pharmacy Electronically, [facility]/pharmacy #[id number], Partial fill upon patient request if the prescription is for a schedule II opioid drug.... Start Date: 09/11/21 Status: Orderedgabapentin 100 mg oral capsule 100 mg, 1, capsule, By Mouth, 3 times a day, # 90 capsule, Refills 3, Tot. Refills 3, Maintenance, 09/11/21 11:32:00 EDT, Route to Pharmacy Electronically, [facility]/pharmacy #[id number], Partial fill upon patientrequest if the prescription is for a schedule II... Start Date: 09/11/21 Status: Orderedibuprofen 600 mg oral tablet 600 mg, 1, tablet, By Mouth, 3 times a day, PRN, Refills 0, Maintenance, Pain , Mild, 08/26/21 16:34:00 EDT, Partial fill upon patient request if the prescription is for a schedule II opioid drug. Start Date: 08/26/21 Status: Orderedlacosamide 200 mg oral tablet 1 tablet = 200 mg, By Mouth, 2 times a day, # 60 tablet, 3 Refills, Maintenance, 09/11/21 11:33:00 EDT, Tablet, [facility]/pharmacy #[id number], Partial fill upon patient request if the prescription is for a schedule II opioid drug., 172, cm, 08/26/21 17:24:00 EDT... Start Date: 09/11/21 Status: OrderedlevETIRAcetam 500 mg oral tablet 3 tablets, By Mouth, 2 times a day, # 180 tablet, 3 Refills, Maintenance, 09/11/21 11:37:00 EDT, Tablet, [facility]/pharmacy #[id number], Partial fill upon patient request if [...] 09/11/21 11:36:00 EDT, Route to Pharmacy Electronically, [facility]/pharmacy #[id number], Partial fill upon patient request if the prescription is for a schedule II opioid laine... Start Date: 09/11/21 Status: OrderedSEROquel 25 mg oral tablet 25 mg, 1, tablet, By Mouth, Daily in AM, 1 am and 2 hs, # 30 tablet, Refills 6, Tot. Refills 6, Maintenance, 09/11/21 11:34:00 EDT, Route to Pharmacy Electronically, [facility]/pharmacy #[id number], Partial fill upon patient request if the prescription is for a sc... Start Date: 09/11/21 Stop Date: 04/09/22 Status: OrderedSEROquel 25 mg oral tablet 50 mg, 2, tablet, By Mouth, Daily at bedtime, Refills 0, Maintenance, 08/26/21 16:35:00 EDT, Partialfill upon patient request if the prescription is for a schedule II opioid drug. Start Date: 08/26/21 Status: Orderedthiamine 100 mg oral tablet 100 mg, 1, tablet, By Mouth, Daily, # 100 tablet, Refills 6, Tot. Refills 6, Maintenance, 09/11/21 11:39:00 EDT, Route to Pharmacy Electronically, [facility]/pharmacy #[id number], Partial fill upon patient request if the prescription is for a schedule II opioid dr... Start Date: 09/11/21 Status: Ordered
--- OUTSIDE RECORDS SUMMARY | 2022-04-12 02:49 | XMS_ITS | Continuity of Care Document ---
:1970 Author Organization [address], [address] [place] [address]- Care Team Providers Name Role Phone Gallo Ness DO Primary Care Physician Encounter [facility] Date(s): 11/20/21 - 11/27/[address], [address] [place], [place] [address] Attending Physician: Nicole Camacho DO Referring Physician: Gallo Ness DO Allergies, Adverse [...] 02/18/15 Not Given Patient Refuses SARS-CoV-2 mRNA (rqrieix-uttc-elzrl) vax 08/23/21 Not Giv en Patient Refuses 1Admin Note: VIS 7-122Result Comment: med not scanning new distributer per fellow [id number] Comment: INJECTIONS GIVEN BILATERAL THIGHS AND BILATERAL UPPER [id number] Note: vis given vis date 07/13 Medications [...] 09/11/21 11:36:00 EDT, Route to Pharmacy Electronically, [facility]/pharmacy #[id number], Partial fill upon patient [...] 09/11/21 11:39:00 EDT, Route to Pharmacy Electronically, [facility]/pharmacy #[id number], Partial fill upon patient [...]
--- OUTSIDE RECORDS SUMMARY | 2022-04-12 02:49 | XMS_ITS | Continuity of Care Document ---
:[address] [facility] Address [address] [place] [address]- Care Team Providers Name Role Phone Gallo Ness DO Primary Care Physician [facility] Date(s): 09/12/21 - 10/12/21 [facility] [address] [place], [place] [address] Allergies, Adverse Reactions, Alerts No Known Allergies [...] 02/18/15 Not Given Patient Refuses SARS-CoV-2 mRNA (yoidrkf-dktr-ltjfm) vax 08/23/21 Not Giv en Patient Refuses 1Admin Note: VIS 7-122Result Comment: med not scanning new distributer per fellow [id number] Comment: INJECTIONS GIVEN BILATERAL THIGHS AND BILATERAL UPPER [id number] Note: vis given vis date 07/13 Medications [...] 09/11/21 11:33:00 EDT, Route to Pharmacy Electronically, [facility]/pharmacy #[id number], Partial fill upon patient request [...] 09/11/21 11:36:00 EDT, Route to Pharmacy Electronically, [facility]/pharmacy #[id number], Partial fill upon patient request [...] 09/11/21 11:39:00 EDT, Route to Pharmacy Electronically, [facility]/pharmacy #[id number], Partial fill upon patient request if the prescription is for a schedule II opioid dr... Start Date: 09/11/21 Status: Ordered Problem List Condition Effective Dates Status Health Status Informant ALD (alcoholic liver 07/31/20 Active disease)(Confirmed) Rib fracture, chronic. left lateral Active 5th.(Confirmed) History of alcoholism(Confirmed) Active Anxiety and depression(Confirmed) Active IAN (obstructive sleep Active apnea)(Confirmed) *BHN/BHCP/CP-Sabine Bruce Active [phone]/Health group home, active care coordination(Confirmed) Seizure disorder(Confirmed) Active TBI (traumatic brain Active injury)(Confirmed) Social History Social History Type Response Smoking Status Current every day smoker; Ot her: 6-10/ day; entered on: 02/17/15 Sex
--- OUTSIDE RECORDS SUMMARY | 2022-04-12 02:49 | XMS_ITS | Continuity of Care Document ---
:1970 Author Organization [facility] Address [address] [place] [address], [address] [place] [address]- Care Team Providers Name Role Phone Tim Riley DO Primary Care Physician Encounter [facility] Date(s): 09/23/21 - 09/30/[address], [address] [place], [place] [address] Attending Physician: Nicole Camacho DO Allergies, Adverse Reactions, Alerts No Known Allergies Immunizations Given and Recorded Vaccine Date Status Refusal Reason SARS-CoV-2 (COVID-19) mRNA BNT-162b2 vac 08/20/20 Recorde d SARS-CoV-2 (COVID-19) mRNA BNT-162b2 vac 07/30/20 Recorde d influenza virus vaccine, inactivated 03/13/20 Recorded Not Given Vaccine Date Status Refusal Reason SARS-CoV-2 mRNA (tvfuntz-qvnw-tfwda) vax 08/23/21 Not Giv en Patient Refuses [...] 09/11/21 11:33:00 EDT, Route to Pharmacy Electronically, [facility]/pharmacy #[id number], Partial fill upon patient request if the prescription is for a schedule II opioid drug.... Start Date: 09/11/21 Status: Orderedgabapentin 100 mg oral capsule 100 mg, 1, capsule, By Mouth, 3 times a day, # 90 capsule, Refills 3, Tot. Refills 3, Maintenance, 09/11/21 11:32:00 EDT, Route to Pharmacy Electronically, [facility]/pharmacy #[id number], Partial fill upon patientrequest if the [...] 3 Refills, Maintenance, 09/11/21 11:33:00 EDT, Tablet, [facility]/pharmacy #[id number], Partial fill upon patient request if the prescription is for a schedule II opioid drug., 172, cm, 08/26/21 17:24:00 EDT... Start Date: 09/11/21 Status: OrderedlevETIRAcetam 500 mg oral tablet 3 tablets, By Mouth, 2 times a day, # 180 tablet, 3 Refills, Maintenance, 09/11/21 11:37:00 EDT, Tablet, [facility]/pharmacy #[id number], Partial fill upon patient request [...] 09/11/21 11:36:00 EDT, Route to Pharmacy Electronically, [facility]/pharmacy #[id number], Partial fill upon patient request if the prescription is for a schedule II opioid laine... Start Date: 09/11/21 Status: OrderedSEROquel 25 mg oral tablet 25 mg, 1, tablet, By Mouth, Daily in AM, 1 am and 2 hs, # 30 tablet, Refills 6, Tot. Refills 6, Maintenance, 09/11/21 11:34:00 EDT, Route to Pharmacy Electronically, [facility]/pharmacy #[id number], Partial fill upon patient request [...] 09/11/21 11:39:00 EDT, Route to Pharmacy Electronically, [facility]/pharmacy #[id number], Partial fill upon patient request if the prescription is for a schedule II opioid dr... Start Date: 09/11/21 Status: Ordered Vital Signs Most recent to oldest [Reference Range]: 1 Height 172 cm (09/23/21 2:45 PM) Weight 67.5 kg (09/23/21 2:45 PM) Body Mass Index [18.5-24.99] 22.82 (09/23/21 2:45 PM)
--- OUTSIDE RECORDS SUMMARY | 2022-04-12 02:49 | XMS_ITS | Continuity of Care Document ---
:1970 Author Organization [address], [address] [place] [address]- Care Team Providers Name Role Phone Ness Gallo CHILEL Primary Care Physician Encounter [facility] Date(s): 11/06/21 - 11/13/[address], [address] [place], [place] [address] Attending Physician: Nicole Camacho DO Referring Physician: Tim Riley DO Allergies, Adverse Reactions, Alerts No Known [...] 02/18/15 Not Given Patient Refuses SARS-CoV-2 mRNA (hzhuxsa-izxu-njrnn) vax 08/23/21 Not Giv en Patient Refuses 1Admin Note: VIS 7-122Result Comment: med not scanning new distributer per fellow [id number] Comment: INJECTIONS GIVEN BILATERAL THIGHS AND BILATERAL UPPER [id number] Note: vis given vis date 07/13 Medications [...] 09/11/21 11:36:00 EDT, Route to Pharmacy Electronically, [facility]/pharmacy #[id number], Partial fill upon [...] 09/11/21 11:39:00 EDT, Route to Pharmacy Electronically, [facility]/pharmacy #[id number], Partial fill upon [...] disorder(Confirmed) Active TBI (traumatic brain Active injury)(Confirmed) Vital Signs Most recent to oldest [Reference Range]: 1 Height 175 cm (11/06/21 10:52 AM) Weight 67.9 kg (11/06/21 10:52 AM) Body Mass Index [18.5-24.99] 22.17 (11/06/21 10:52 AM) Social History Social History Type Response Smoking Status Current every day smoker; Ot her: 6-10/ day; entered on: 02/17/15 Sex
--- OUTSIDE RECORDS SUMMARY | 2022-04-12 02:49 | XMS_ITS | Continuity of Care Document ---
:1970 Author Organization [facility] Address [address] [place] [address]- Care Team Providers Name Role Phone Gallo Ness DO Primary Care Physician [facility]10/22 - 04/09/22 [facility] [address], [place] [address] Allergies, Adverse Reactions, Alerts No Known Allergies [...] 02/18/15 Not Given Patient Refuses SARS-CoV-2 mRNA (shrakqk-grah-puiff) vax 08/23/21 Not Giv en Patient Refuses 1Admin Note: VIS 7-122Result Comment: med not scanning new distributer per fellow [id number] Comment: INJECTIONS GIVEN BILATERAL THIGHS AND BILATERAL UPPER [id number] Note: vis given vis date 07/13 Medications [...] 09/11/21 11:33:00 EDT, Route to Pharmacy Electronically, [facility]/pharmacy #[id number], Partial fill upon patient request if the prescription is for a schedule II opioid drug.... Start Date: 09/11/21 Status: Orderedgabapentin 100 mg oral capsule 100 mg, 1, capsule, By Mouth, 3 times a day, # 90 capsule, Refills 3, Tot. Refills 3, Maintenance, 09/11/21 11:32:00 EDT, Route to Pharmacy Electronically, [facility]/pharmacy #[id number], Partial fill upon patientrequest if the prescription is for a schedule II... Start Date: 09/11/21 Status: Orderedgabapentin 100 mg oral capsule 100 mg, 1, capsule, By Mouth, 3 times a day, # 90 capsule, Refills 0, Tot. Refills 0, Maintenance, 03/07/22 16:24:00 EST, Route to Pharmacy Electronically, [facility], Partial fill upon patient request if the prescription is for a schedu... Start Date: 03/07/22 Stop Date: 04/06/22 Status: Orderedlacosamide 200 mg oral tablet 1 [...] Care Team PersonnelName: Jonathan Cartwright RN Position: [facility] RN Member Role: Primary Care Nurse Name: Tej Lara RN Position: S RN Member Role: Primary Care Nurse Name: Josette Ladd RN Position: S RN Member Role: Primary Care Nurse Name: Bianka Black RN Position: [facility] RN Member Role: Primary Care Nurse Name: Jimenez Ventura RN Position: [facility] RN Member Role: Primary Care Nurse Name: Yoselin Dhillon RN Position: [facility] RN Member Role: Primary Care Nurse Name: Gallo Ness DO Position: [facility] Resident Member Role: PCP Address: Address: [address] [place] [address] [place] [address]- Name: Elisa Aguero RN Position: [facility] RN Member Role: Primary Care Nurse Name: Olena Romero Position: [facility] RN Member Role: Primary Care Nurse Care Team Related PersonsName: JESSY KING Address: home [address] [place] [address] Name: NO ONE, PER PATIENT Name: MARIA ESTHER GUPTA Address: home [address] [place] [address]
--- OUTSIDE RECORDS SUMMARY | 2022-04-12 02:49 | XMS_ITS | Continuity of Care Document ---
:1970 Author Organization [facility] Address [address] [place] [address]- Care Team Providers Name Role Phone Katie Ness DOit Primary Care Physician [facility]): 09/24/21 - 10/24/21 [facility] [address], [place] [address] Attending Physician: AdmNiurka carrillo Admitting Physician: Admtr, Ar8 Referring Physician: Admtr, [...] 02/18/15 Not Given Patient Refuses SARS-CoV-2 mRNA (irjcahv-qfjs-vizst) vax 08/23/21 Not Giv en Patient Refuses 1Admin Note: VIS 7-122Result Comment: med not scanning new distributer per fellow [id number] Comment: INJECTIONS GIVEN BILATERAL THIGHS AND BILATERAL UPPER [id number] Note: vis given vis date 07/13 Medications [...] 10/23/21 9:15:00 EDT, Route to Pharmacy Electronically, [facility], Partial fill upon patient... Start Date: 10/23/21 Stop Date: 10/30/21 Status: Orderedpyridoxine 50 mg oral tablet 50 mg, 1, tablet, By Mouth, Daily, # 100 tablet, Refills 3, Tot. Refills 3, Maintenance, 09/11/21 11:36:00 EDT, Route to Pharmacy Electronically, [facility]/pharmacy #[id number], Partial fill upon patient request if the prescription is for a schedule II opioid laine... Start Date: 09/11/21 Status: OrderedSEROquel 25 mg oral tablet 25 mg, 1, tablet, By Mouth, Daily in AM, 1 am and 2 hs, # 30 tablet, Refills 6, Tot. Refills 6, Maintenance, 09/11/21 11:34:00 EDT, Route to Pharmacy Electronically, [facility]/pharmacy #[id number], Partial fill upon patient request if the prescription is for a sc... Start Date: 09/11/21 Stop Date: 04/09/22 Status: Orderedthiamine 100 mg oral tablet 100 mg, 1, tablet, By Mouth, Daily, # 100 tablet, Refills 6, Tot. Refills 6, Maintenance, 09/11/21 11:39:00 EDT, Route to Pharmacy Electronically, [facility]/pharmacy #[id number], Partial fill upon patient request if the prescription is for a schedule II opioid . Start Date: 09/11/21 Status: Ordered Problem List [...]
--- OUTSIDE RECORDS SUMMARY | 2022-04-12 02:49 | XMS_ITS | Continuity of Care Document ---
:1970 Author Organization [facility] Address [address] [place] [address]- Care Team Providers Name Role Phone Tim Riley DO Primary Care Physician [facility]): 11/27/20 - 12/27/20 [facility] [address], [place] [address] Attending Physician: Niurka Espino Admitting Physician: AdmNiurka carrillo Referring Physician: AdmtrNiurka Allergies, Adverse Reactions, Alerts Substance Reaction Severity [...] med not scanning new distributer per fellow [id number] Comment: INJECTIONS GIVEN BILATERAL THIGHS AND BILATERAL UPPER [id number] Note: vis given vis date 07/13 Medications acamprosate 333 mg oral delayed release tablet 2 tablet = 666 mg, By Mouth, 3 times a day, Take 666 mg three times per day., # 180 tablet, 1 Refills, Maintenance, 08/14/20 8:55:00 EDT, CR Tablet, [facility], Partial fill upon patient request if the prescription is for a schedul... Start Date: 08/14/20 Stop Date: 10/13/20 Status: OrderedCPAP Machine See Instructions, # 1 each, Maintenance, AutoCPAP 8-20, 03/24/19 13:40:00 EST, Compound Start Date: 03/24/19 Status: Ordereddiclofenac 1% topical gel 1 application, Topically, 4 times a day, PRN Pain , Moderate, German: Lower back not to exceed 32 grams/day, # 100 Gm, 0 Refills, Maintenance, 10/19/20 15:39:00 EDT, Gel, [facility] Partial fill upon patient request if the prescript... Start Date: 10/19/20 Stop Date: 11/02/20 Status: Orderedlidocaine 5% topical ointment 1 application, Topically, 3 times a day, PRN Pain , Moderate, Print instructions in upper sorbian wash hands thoroughly after application, # 50 Gm, 0 Refills, Maintenance, 07/23/20 11:42:00 EDT, Ointment, [facility], Partial fill upon patie... Start Date: [...] Obstructive sleep apnea(Confirmed) Active *BHN/BHCP/CP-Sabine Bruce Active [phone]/[facility], active care coordination(Confirmed) Social History Social History Type Response Smoking Status Current every day smoker; Ot her: 6-10/ day; entered on: 02/17/15 Sex
--- OUTSIDE RECORDS SUMMARY | 2022-04-12 02:49 | XMS_ITS | Continuity of Care Document ---
:1970 Author Organization [facility] Address [address] [place] [address]- Care Team Providers Name Role Phone Tim Riley DO Primary Care Physician [facility]s): 08/14/20 - 10/11/20 [facility] [address] [place], [place] [address] Attending Physician: Tomas BOURNE, Giovana Whitfield Admitting Physician: Tomas BOURNE, Giovana Whitfield Allergies, Adverse Reactions, Alerts Substance Reaction Severity [...] med not scanning new distributer per fellow [id number] Comment: INJECTIONS GIVEN BILATERAL THIGHS AND BILATERAL UPPER [id number] Note: vis given vis date 07/13 Medications acamprosate 333 mg oral delayed release tablet 2 tablet = 666 mg, By Mouth, 3 times a day, Take 666 mg three times per day., # 180 tablet, 1 Refills, Maintenance, 08/14/20 8:55:00 EDT, CR Tablet, [facility], Partial fill upon patient request if the prescription is for a schedul... Start Date: 08/14/20 Stop Date: 10/13/20 Status: OrderedCPAP Machine See Instructions, # 1 each, Maintenance, AutoCPAP 8-20, 03/24/19 13:40:00 EST, Compound Start Date: 03/24/19 Status: Orderedlidocaine 5% topical ointment 1 application, Topically, 3 times a day, PRN Pain , Moderate, Print instructions in cook islander wash hands thoroughly after application, # 50 Gm, 0 Refills, Maintenance, 07/23/20 11:42:00 EDT, [facility] upon patie... Start Date: [...] Obstructive sleep apnea(Confirmed) Active *BHN/BHCP/CP-Sabine Bruce Active [phone]/[facility], active care coordination(Confirmed) Social History Social History Type Response Smoking Status Current every day smoker; Ot her: 6-10/ day; entered on: 02/17/15 Sex
--- OUTSIDE RECORDS SUMMARY | 2022-04-12 02:49 | XMS_ITS | Continuity of Care Document ---
:1970 Author Organization [facility] Address [address] [place] [address]- Care Team Providers Name Role Phone Tim Riley DO Primary Care Physician Encounter [facility] Date(s): 08/12/19 - 09/11/19 [facility] [address] [address]- [facility] Attending Physician: AdmCan [email or web address] Admitting Physician: Admtr, Ar8 Referring Physician: Admtr, [...] med not scanning new distributer per fellow [id number] Comment: INJECTIONS GIVEN BILATERAL THIGHS AND BILATERAL UPPER [id number] Note: vis given vis date 07/13 Medications [...] Obstructive sleep apnea(Confirmed) Active *BHN/BHCP/CP-Lida Sheridan Active [phone]/Health [facility], active care coordination(Confirmed) Social History Social History Type Response Smoking Status Current every day smoker; Ot her: 6-10/ day; entered on: 02/17/15 Sex
--- OUTSIDE RECORDS SUMMARY | 2022-04-12 02:49 | XMS_ITS | Continuity of Care Document ---
:1970 Author Organization [facility] Address [address] [place] [address]- Care Team Providers Name Role Phone Tim Riley DO Primary Care Physician [facility]s): 06/06/21 - 07/18/21 [facility] [address] [place], [place] [address] Attending Physician: Tomas BOURNE, Giovana Whitfield Admitting Physician: Tomas BOURNE, Giovana Whitfield Allergies, Adverse Reactions, Alerts No Known Allergies [...] med not scanning new distributer per fellow [id number] Comment: INJECTIONS GIVEN BILATERAL THIGHS AND BILATERAL UPPER [id number] Note: vis given vis date 07/13 Medications acamprosate 333 mg oral delayed release tablet 2 tablet = 666 mg, By Mouth, 3 times a day, Take 666 mg three times per day., # 180 tablet, 1 Refills, Maintenance, 08/14/20 8:55:00 EDT, CR Tablet, [facility], Partial fill upon patient request if the prescription is for a schedul... Start Date: 08/14/20 Stop Date: 10/13/20 Status: OrderedCPAP Machine See Instructions, # 1 each, Maintenance, AutoCPAP 8-20, 03/24/19 13:40:00 EST, Compound Start Date: 03/24/19 Status: Ordereddiclofenac 1% topical gel 1 application, Topically, 4 times a day, PRN Pain , Moderate, Yoruba: Lower back not to exceed 32 grams/day, # 100 Gm, 0 Refills, Maintenance, 10/19/20 15:39:00 EDT, Gel, [facility], Partial fill upon patient request if the prescript... Start Date: 10/19/20 Stop Date: 11/02/20 Status: Orderedlidocaine 5% topical ointment 1 application, Topically, 3 times a day, PRN Pain , Moderate, Print instructions in mongolian wash hands thoroughly after application, # 50 Gm, 0 Refills, Maintenance, 07/23/20 11:42:00 EDT, Ointment, [facility], Partial fill upon patie... Start Date: [...] Obstructive sleep apnea(Confirmed) Active *BHN/BHCP/CP-Sabine Bruce Active [phone]/[facility], active care coordination(Confirmed) Social History Social History Type Response Smoking Status Current every day smoker; Ot her: 6-10/ day; entered on: 02/17/15 Sex
--- OUTSIDE RECORDS SUMMARY | 2022-04-12 02:49 | XMS_ITS | Continuity of Care Document ---
:1970 Author Organization [facility] Address [address] [place] [address]- Care Team Providers Name Role Phone Katie Ness DOit Primary Care Physician [facility]s): 03/07/22 - 04/06/22 [facility] [address], [place] [address] Attending Physician: AdmNiurka carrillo Admitting Physician: Admtr, [...] 02/18/15 Not Given Patient Refuses SARS-CoV-2 mRNA (cuzepqr-lbwb-afrza) vax 08/23/21 Not Giv en Patient Refuses 1Admin Note: VIS 7-122Result Comment: med not scanning new distributer per fellow [id number] Comment: INJECTIONS GIVEN BILATERAL THIGHS AND BILATERAL UPPER [id number] Note: vis given vis date 07/13 Medications [...] 03/07/22 16:24:00 EST, Route to Pharmacy Electronically, [facility], Partial fill upon patient request if [...] her: 6-10/ day; entered on: 02/17/15 Sex Note Jessee Rocha E: PERFORM Event Display: Radiology Results Scanned Authored Date: Jessee Rocha E: PERFORM Event Display: Radiology Results Scanned Authored Date: [id number] Patient Care team information Care Team PersonnelName: Jonathan Cartwright RN Position: [facility] RN Member Role: Primary Care Nurse Name: Tej Lara RN Position: S RN Member Role: Primary Care Nurse Name: Josette Ladd RN Position: S RN Member Role: Primary Care Nurse Name: Bianka Black RN Position: [facility] RN Member Role: Primary Care Nurse Name: Jimenez Ventura RN Position: [facility] RN Member Role: Primary Care Nurse Name: Yoselin Dhillon RN Position: [facility] RN Member Role: Primary Care Nurse Name: Gallo Ness DO Position: [facility] Resident Member Role: PCP Address: Address: [address] [place] [address]- Name: Elisa Aguero RN Position: [facility] RN Member Role: Primary Care Nurse Name: Olena Romero Position: [facility] RN Member Role: Primary Care Nurse Care Team Related PersonsName: JESSY KING Address: home [address] [place] [address] Name: NO ONE, PER PATIENT Name: MARIA ESTHER GUPTA Address: home [address] [place] [address]
--- OUTSIDE RECORDS SUMMARY | 2022-04-12 02:49 | XMS_ITS | Continuity of Care Document ---
:1970 Author Organization [facility] Address [address] [place] [address]- Care Team Providers Name Role Phone Gallo Ness DO Primary Care Physician [facility]s): 09/13/21 - 10/13/21 [facility] [address] [place], [place] [address] Allergies, Adverse Reactions, Alerts No Known Allergies [...] 02/18/15 Not Given Patient Refuses SARS-CoV-2 mRNA (ndrxelk-opmq-imdgl) vax 08/23/21 Not Giv en Patient Refuses 1Admin Note: VIS 7-122Result Comment: med not scanning new distributer per fellow [id number] Comment: INJECTIONS GIVEN BILATERAL THIGHS AND BILATERAL UPPER [id number] Note: vis given vis date 07/13 Medications [...] 09/11/21 11:33:00 EDT, Route to Pharmacy Electronically, [facility]/pharmacy #[id number], Partial fill upon patient [...] 09/11/21 11:36:00 EDT, Route to Pharmacy Electronically, [facility]/pharmacy #[id number], Partial fill upon patient [...] 09/11/21 11:39:00 EDT, Route to Pharmacy Electronically, [facility]/pharmacy #[id number], Partial fill upon patient request if the prescription is for a schedule II opioid dr... Start Date: 09/11/21 Status: Ordered Problem List Condition Effective Dates Status Health Status Informant ALD (alcoholic liver 07/31/20 Active disease)(Confirmed) Rib fracture, chronic. left lateral Active 5th.(Confirmed) History of alcoholism(Confirmed) Active Anxiety and depression(Confirmed) Active IAN (obstructive sleep Active apnea)(Confirmed) *BHN/BHCP/CP-Sabine Bruce Active [phone]/Health longterm, active care coordination(Confirmed) Seizure disorder(Confirmed) Active TBI (traumatic brain Active injury)(Confirmed) Social History Social History Type Response Smoking Status Current every day smoker; Ot her: 6-10/ day; entered on: 02/17/15 Sex
--- OUTSIDE RECORDS SUMMARY | 2022-04-12 02:49 | XMS_ITS | Continuity of Care Document ---
:1970 Author Organization [facility] Address [address] [place] [address]- Care Team Providers Name Role Phone Tim Riley DO Primary Care Physician [facility]s): 08/21/21 - 09/20/21 [facility] [address] [place] [address]- Attending Physician: Niurka Espino Admitting Physician: Niurka Espino Referring Physician: Niurka Espino Allergies, Adverse Reactions, Alerts No Known Allergies [...] med not scanning new distributer per fellow [id number] Comment: INJECTIONS GIVEN BILATERAL THIGHS AND BILATERAL UPPER [id number] Note: vis given vis date 07/13 Medications acamprosate 333 mg oral delayed release tablet 2 tablet, By Mouth, 3 times a day, # 180 tablet, 1 Refills, [facility], 172, cm,02/21/21 15:21:00 EST, Height Start Date: 08/07/21 Status: OrderedCPAP Machine See Instructions, # 1 each, Maintenance, AutoCPAP 8-20, 03/24/19 13:40:00 EST, Compound Start Date: 03/24/19 Status: Ordereddiclofenac 1% topical gel 1 application, Topically, 4 times a day, PRN Pain , Moderate, Lithuanian: Lower back not to exceed 32 grams/day, # 100 Gm, 0 Refills, Maintenance, 10/19/20 15:39:00 EDT, Gel, [facility], Partial fill upon patient request if the prescript... Start Date: 10/19/20 Stop Date: 11/02/20 Status: Orderedlidocaine 5% topical ointment 1 application, Topically, 3 times a day, PRN Pain , Moderate, Print instructions in turkmen wash hands thoroughly after application, # 50 Gm, 0 Refills, Maintenance, 07/23/20 11:42:00 EDT, Ointment, [facility], Partial fill upon patie... Start Date: 07/23/20 [...] Obstructive sleep apnea(Confirmed) Active *BHN/BHCP/CP-Sabine Bruce Active [phone]/Health long term, active care coordination(Confirmed) Seizure disorder(Confirmed) Active Social History Social History Type Response Smoking Status Current every day smoker; Ot her: 6-10/ day; entered on: 02/17/15 Sex
--- OUTSIDE RECORDS SUMMARY | 2022-04-12 02:49 | XMS_ITS | Continuity of Care Document ---
:1970 Author Organization [facility] Address [address] [place] [address]- Care Team Providers Name Role Phone Gallo Ness DO Primary Care Physician [facility]s): 02/13/22 - 03/30/22 [facility] [address] [place], [place] [address] Attending Physician: Karthikeyan Zamora MD [...] 02/18/15 Not Given Patient Refuses SARS-CoV-2 mRNA (vqzkiuq-qjff-kufad) vax 08/23/21 Not Giv en Patient Refuses 1Admin Note: VIS 7-122Result Comment: med not scanning new distributer per fellow [id number] Comment: INJECTIONS GIVEN BILATERAL THIGHS AND BILATERAL UPPER [id number] Note: vis given vis date 07/13 Medications [...] 09/11/21 11:33:00 EDT, Route to Pharmacy Electronically, [facility]/pharmacy #[id number], Partial fill upon patient request if the prescription is for a schedule II opioid drug.... Start Date: 09/11/21 Status: Orderedgabapentin 100 mg oral capsule 100 mg, 1, capsule, By Mouth, 3 times a day, # 90 capsule, Refills 3, Tot. Refills 3, Maintenance, 09/11/21 11:32:00 EDT, Route to Pharmacy Electronically, [facility]/pharmacy #[id number], Partial fill upon patientrequest if the prescription is for a schedule II... Start Date: 09/11/21 Status: Orderedgabapentin 100 mg oral capsule 100 mg, 1, capsule, By Mouth, 3 times a day, # 90 capsule, Refills 0, Tot. Refills 0, Maintenance, 03/07/22 16:24:00 EST, Route to Pharmacy Electronically, [facility], Partial fill upon patient request if [...] 3 Refills, Maintenance, 09/11/21 11:37:00 EDT, Tablet, [facility]/pharmacy #[id number], Partial fill upon patient request [...] 09/11/21 11:36:00 EDT, Route to Pharmacy Electronically, [facility]/pharmacy #[id number], Partial fill upon patient request if the prescription is for a schedule II opioid laine... Start Date: 09/11/21 Status: OrderedSEROquel 25 mg oral tablet 25 mg, 1, tablet, By Mouth, Daily in AM, 1 am and 2 hs, # 30 tablet, Refills 6, Tot. Refills 6, Maintenance, 09/11/21 11:34:00 EDT, Route to Pharmacy Electronically, [facility]/pharmacy #[id number], Partial fill upon patient request if the prescription is for a sc... Start Date: 09/11/21 Stop Date: 04/09/22 Status: Orderedthiamine 100 mg oral tablet 100 mg, 1, tablet, By Mouth, Daily, # 100 tablet, Refills 6, Tot. Refills 6, Maintenance, 09/11/21 11:39:00 EDT, Route to Pharmacy Electronically, [facility]/pharmacy #[id number], Partial fill upon patient request [...] Care Team PersonnelName: Jonathan Cartwright RN Position: [facility] RN Member Role: Primary Care Nurse Name: Tej Lara RN Position: [facility] RN Member Role: Primary Care Nurse Name: Josette Ladd RN Position: [facility] RN Member Role: Primary Care Nurse Name: Bianka Black RN Position: [facility] RN Member Role: Primary Care Nurse Name: Jimenez Ventura RN Position: [facility] RN Member Role: Primary Care Nurse Name: Yoselin Dhillon RN Position: [facility] RN Member Role: Primary Care Nurse Name: Gallo Ness DO Position: [facility] Resident Member Role: PCP Address: Address: [address] [place] [id number] Name: Elisa Aguero RN Position: [facility] RN Member Role: Primary Care Nurse Name: Olena Romero Position: [facility] RN Member Role: Primary Care Nurse Care Team Related PersonsName: CHRISTINE JESSY Address: home [address] [place] [address] Name: NO ONE, PER PATIENT Name: MARIA ESTHER GUPTA Address: home [address] [place] [address]
--- OUTSIDE RECORDS SUMMARY | 2022-04-12 02:49 | XMS_ITS | Continuity of Care Document ---
:1970 Author Organization [facility] Address [address] [place] [address]- Care Team Providers Name Role Phone Tim Riley DO Primary Care Physician [facility]): [facility] - 12/27/20 [facility] [address], [place] [address] Attending Physician: Tomas BOURNE, Giovana Whitfield [...] med not scanning new distributer per fellow [id number] Comment: INJECTIONS GIVEN BILATERAL THIGHS AND BILATERAL UPPER [id number] Note: vis given vis date 07/13 Medications acamprosate 333 mg oral delayed release tablet 2 tablet = 666 mg, By Mouth, 3 times a day, Take 666 mg three times per day., # 180 tablet, 1 Refills, Maintenance, 08/14/20 8:55:00 EDT, CR Tablet, [facility], Partial fill upon patient request if the prescription is for a schedul... Start Date: 08/14/20 Stop Date: 10/13/20 Status: OrderedCPAP Machine See Instructions, # 1 each, Maintenance, AutoCPAP 8-20, 03/24/19 13:40:00 EST, Compound Start Date: 03/24/19 Status: Ordereddiclofenac 1% topical gel 1 application, Topically, 4 times a day, PRN Pain , Moderate, Belarusian: Lower back not to exceed 32 grams/day, # 100 Gm, 0 Refills, Maintenance, 10/19/20 15:39:00 EDT, Gel, [facility], Partial fill upon patient request if the prescript... Start Date: 10/19/20 Stop Date: 11/02/20 Status: Orderedlidocaine 5% topical ointment 1 application, Topically, 3 times a day, PRN Pain , Moderate, Print instructions in kuwaiti wash hands thoroughly after application, # 50 Gm, 0 Refills, Maintenance, 07/23/20 11:42:00 EDT, Ointment, [facility], Partial fill upon patie... Start Date: [...] Obstructive sleep apnea(Confirmed) Active *BHN/BHCP/CP-Sabine Bruce Active [phone]/Health skilled nursing, active care coordination(Confirmed) Social History Social History Type Response Smoking Status Current every day smoker; Ot her: 6-10/ day; entered on: 02/17/15 Sex
--- OUTSIDE RECORDS SUMMARY | 2022-04-12 02:49 | XMS_ITS | Continuity of Care Document ---
:1970 Author Organization [facility] Address [address] [place] [address]- Care Team Providers Name Role Phone Gallo Ness DO Primary Care Physician [facility] Date[facility]s): 10/11/21 - 11/10/21 [facility] [address], [place] [address] Allergies, Adverse Reactions, Alerts No [...] 02/18/15 Not Given Patient Refuses SARS-CoV-2 mRNA ([id number]) vax 08/23/21 Not Giv en Patient Refuses 1Admin Note: VIS 7-122Result Comment: med not scanning new distributer per fellow [id number] Comment: INJECTIONS GIVEN BILATERAL THIGHS AND BILATERAL UPPER [id number] Note: vis given vis date 07/13 Medications [...] 09/11/21 11:33:00 EDT, Route to Pharmacy Electronically, [facility]/pharmacy #[id number], Partial fill upon [...] 09/11/21 11:36:00 EDT, Route to Pharmacy Electronically, [facility]/pharmacy #[id number], Partial fill upon patient request if the prescription is for a schedule II opioid laine... Start Date: 09/11/21 Status: OrderedSEROquel 25 mg oral tablet 25 mg, 1, tablet, By Mouth, Daily in AM, 1 am and 2 hs, # 30 tablet, Refills 6, Tot. Refills 6, Maintenance, 09/11/21 11:34:00 EDT, Route to Pharmacy Electronically, [facility]/pharmacy #[id number], Partial fill upon patient request if the prescription is for a sc... Start Date: 09/11/21 Stop Date: 04/09/22 Status: Orderedthiamine 100 mg oral tablet 100 mg, 1, tablet, By Mouth, Daily, # 100 tablet, Refills 6, Tot. Refills 6, Maintenance, 09/11/21 11:39:00 EDT, Route to Pharmacy Electronically, [facility]/pharmacy #[id number], Partial fill upon [...]
--- OUTSIDE RECORDS SUMMARY | 2022-04-12 02:49 | XMS_ITS | Continuity of Care Document ---
:1970 Author Organization [facility] Address [address] [place] [address]- Care Team Providers Name Role Phone Tim Riley DO Primary Care Physician [facility]): 09[facility]11/20 - 10/11/20 [facility] [address] [place], [place] [address] Attending Physician: Niurka Espino Admitting Physician: AdmNiurka [...] med not scanning new distributer per fellow [id number] Comment: INJECTIONS GIVEN BILATERAL THIGHS AND BILATERAL UPPER [id number] Note: vis given vis date 07/13 Medications acamprosate 333 mg oral delayed release tablet 2 tablet = 666 mg, By Mouth, 3 times a day, Take 666 mg three times per day., # 180 tablet, 1 Refills, Maintenance, 08/14/20 8:55:00 EDT, CR Tablet, [facility], Partial fill upon patient request if the prescription is for a schedul... Start Date: 08/14/20 Stop Date: 10/13/20 Status: OrderedCPAP Machine See Instructions, # 1 each, Maintenance, AutoCPAP 8-20, 03/24/19 13:40:00 EST, Compound Start Date: 03/24/19 Status: Orderedlidocaine 5% topical ointment 1 application, Topically, 3 times a day, PRN Pain , Moderate, Print instructions in german wash hands thoroughly after application, # 50 Gm, 0 Refills, Maintenance, 07/23/20 11:42:00 EDT, Ointment, [facility], Partial fill upon patie... Start Date: [...] Obstructive sleep apnea(Confirmed) Active *BHN/BHCP/CP-Sabine Bruce Active [phone]/Health prison, active care coordination(Confirmed) Social History Social History Type Response Smoking Status Current every day smoker; Ot her: 6-10/ day; entered on: 02/17/15 Sex
--- OUTSIDE RECORDS SUMMARY | 2022-04-12 02:49 | XMS_ITS | Continuity of Care Document ---
:1970 Author Organization [facility] Address [address] [place] [address]- Care Team Providers Name Role Phone Ness Katie CHILELit Primary Care Physician [facility]): 10/16/21 - 11/15/21 [facility] [address], [place] [address] Allergies, Adverse Reactions, Alerts No Known Allergies [...] 02/18/15 Not Given Patient Refuses SARS-CoV-2 mRNA ([id number]) vax 08/23/21 Not Giv en Patient Refuses 1Admin Note: VIS 7-122Result Comment: med not scanning new distributer per fellow [id number] Comment: INJECTIONS GIVEN BILATERAL THIGHS AND BILATERAL UPPER [id number] Note: vis given vis date 07/13 Medications [...] 09/11/21 11:33:00 EDT, Route to Pharmacy Electronically, [facility]/pharmacy #[id number], Partial fill upon patient request [...] 09/11/21 11:36:00 EDT, Route to Pharmacy Electronically, [facility]/pharmacy #[id number], Partial fill upon patient request [...] 09/11/21 11:39:00 EDT, Route to Pharmacy Electronically, [facility]/pharmacy #[id number], Partial fill upon patient request [...]
--- OUTSIDE RECORDS SUMMARY | 2022-04-12 02:49 | XMS_ITS | Continuity of Care Document ---
:1970 Author Organization [address], [address] [place] [address]- Care Team Providers Name Role Phone Ness Katie CHILELit Primary Care Physician [place] [facility] 11/[place] - 12/20/[address], [address] [place], [place] [address] Attending Physician: Admtr, Can8 Admitting Physician: Admtr, [...] 02/18/15 Not Given Patient Refuses SARS-CoV-2 mRNA ([id number]) vax 08/23/21 Not Giv en Patient Refuses 1Admin Note: VIS 7-122Result Comment: med not scanning new distributer per fellow [id number] Comment: INJECTIONS GIVEN BILATERAL THIGHS AND BILATERAL UPPER [id number] Note: vis given vis date 07/13 Medications [...] 09/11/21 11:36:00 EDT, Route to Pharmacy Electronically, [facility]/pharmacy #[id number], Partial fill upon patient request if the prescription is for a schedule II opioid laine... Start Date: 09/11/21 Status: OrderedSEROquel 25 mg oral tablet 25 mg, 1, tablet, By Mouth, Daily in AM, 1 am and 2 hs, # 30 tablet, Refills 6, Tot. Refills 6, Maintenance, 09/11/21 11:34:00 EDT, Route to Pharmacy Electronically, [facility]/pharmacy #[id number], Partial fill upon patient request if the prescription is for a sc... Start Date: 09/11/21 Stop Date: 04/09/22 Status: Orderedthiamine 100 mg oral tablet 100 mg, 1, tablet, By Mouth, Daily, # 100 tablet, Refills 6, Tot. Refills 6, Maintenance, 09/11/21 11:39:00 EDT, Route to Pharmacy Electronically, [facility]/pharmacy #[id number], Partial fill upon patient request if [...] Care Team PersonnelName: Gallo Ness DO Address: [address] [place] [address]
--- OUTSIDE RECORDS SUMMARY | 2022-04-12 02:49 | XMS_ITS | Continuity of Care Document ---
:1970 Author Organization [facility] Address [address] [place] [address]- Care Team Providers Name Role Phone Riley Tim CHILEL Primary Care Physician [facility] Date[facility]s): 08/06/20 - 09/05/20 [facility] [address] [place] [address] Allergies, Adverse Reactions, Alerts Substance Reaction Severity [...] med not scanning new distributer per fellow [id number] Comment: INJECTIONS GIVEN BILATERAL THIGHS AND BILATERAL UPPER [id number] Note: vis given vis date 07/13 Medications acamprosate 333 mg oral delayed release tablet 2 tablet = 666 mg, By Mouth, 3 times a day, Take 666 mg three times per day., # 180 tablet, 1 Refills, Maintenance, 08/14/20 8:55:00 EDT, CR Tablet, [facility], Partial fill upon patient request if the prescription is for a schedul... Start Date: 08/14/20 Stop Date: 10/13/20 Status: OrderedCPAP Machine See Instructions, # 1 each, Maintenance, AutoCPAP 8-20, 03/24/19 13:40:00 EST, Compound Start Date: 03/24/19 Status: Orderedlidocaine 5% topical ointment 1 application, Topically, 3 times a day, PRN Pain , Moderate, Print instructions in maori wash hands thoroughly after application, # 50 Gm, 0 Refills, Maintenance, 07/23/20 11:42:00 EDT[facility]ie... Start [...] Obstructive sleep apnea(Confirmed) Active *BHN/BHCP/CP-Sabine Bruce Active [phone]/Health [facility], active care coordination(Confirmed) Social History Social History Type Response Smoking Status Current every day smoker; Ot her: 6-10/ day; entered on: 02/17/15 Sex
--- OUTSIDE RECORDS SUMMARY | 2022-04-12 02:50 | XMS_ITS | Continuity of Care Document ---
:1970 Author Organization [facility] Address [address] [place] [address]- Care Team Providers Name Role Phone Gallo Ness DO Primary Care Physician Encounter [facility] Date(s): 10/22/21 - 10/23/[address] [address] Discharge Disposition: A-D/C Home Attending Physician: Nicole Camacho DO Admitting Physician: Nicole Camacho DO Referring Physician: Nicole Camacho DO Allergies, Adverse Reactions, [...] 02/18/15 Not Given Patient Refuses SARS-CoV-2 mRNA ([id number]) vax 08/23/21 Not Giv en Patient Refuses 1Admin Note: VIS 7-122Result Comment: med not scanning new distributer per fellow [id number] Comment: INJECTIONS GIVEN BILATERAL THIGHS AND BILATERAL UPPER [id number] Note: vis given vis date 07/13 Medications [...] 3 Refills, Maintenance, 09/11/21 11:37:00 EDT, Tablet, [facility]/pharmacy #[id number], Partial fill upon patient request if the prescription is for a schedule II opioid drug., 172, cm, 08/26/21 17:24:00 EDT, .. Start Date: 09/11/21 Stop Date: 01/09/22 Status: [...] 10/23/21 9:15:00 EDT, Route to Pharmacy Electronically, [facility], Partial fill upon patient... Start Date: 10/23/21 Stop Date: 10/30/21 Status: OrderedoxyCODONE 5 mg oral tablet 5 mg, Tablet, By Mouth, Every 4 hours, PRN for Pain , Moderate, Routine, 10/22/21 10:22:00 EDT Start Date: 10/22/21 Stop Date: 10/23/21 Status: Discontinuedpyridoxine 50 mg oral tablet 50 mg, 1, tablet, By Mouth, Daily, # 100 tablet, Refills 3, Tot. Refills 3, Maintenance, 09/11/21 11:36:00 EDT, Route to Pharmacy Electronically, [facility]/pharmacy #[id number], Partial fill upon patient request if the prescription is for a schedule II opioid laine... Start Date: 09/11/21 Status: OrderedSEROquel 25 mg oral tablet 25 mg, 1, tablet, By Mouth, Daily in AM, 1 am and 2 hs, # 30 tablet, Refills 6, Tot. Refills 6, Maintenance, 09/11/21 11:34:00 EDT, Route to Pharmacy Electronically, [facility]/pharmacy #[id number], Partial fill upon patient request if the prescription is for a sc... Start Date: 09/11/21 Stop Date: 04/09/22 Status: Orderedthiamine 100 mg oral tablet 100 mg, 1, tablet, By Mouth, Daily, # 100 tablet, Refills 6, Tot. Refills 6, Maintenance, 09/11/21 11:39:00 EDT, Route to Pharmacy Electronically, [facility]/pharmacy #[id number], Partial fill upon patient request if the [...] injury)(Confirmed) Vital Signs Most recent to oldest 1 2 3 [Reference Range]: Weight 67.9 kg (10/22/21 3:47 PM) Oxygen Saturation [94-100 %] 96 % 100 % 97 % (10/23/21 11:00 AM) (10/23/21 9:00 AM) (10/23/21 7: 00 AM) Pulse Rate [55-90 bpm] 67 bpm (10/22/21 6:51 AM) Blood Pressure [90-138/55-84 88/60 mm Hg 84/58 mm Hg 104 /81 mm Hg mm Hg] *L* *L* (10/23/21 7:00 AM ) (10/23/21 11:00 AM) (10/23/21 9:00 AM) Respiratory Rate [16-30 18 br/min 12 br/min 18 br/mi n br/min] (10/23/21 11:35 AM) *L* (10/23/21 10:3 5 AM) (10/23/21 11:00 AM) Temperature [96.8-100.4 97.5 DegF 97.8 DegF 98.1 Deg F DegF] (10/23/21 11:00 AM) (10/23/21 9:00 AM) (10/23/21 7: 00 AM) Liters per Minute 6 L/min (10/22/21 9:45 AM) Mode of Delivery (Oxygen) Room air Room air Room a ir (10/23/21 11:00 AM) (10/23/21 7:00 AM) (10/23/21 6: 00 AM) Blood pressure sites Arm, left Arm, left Arm, left (10/23/21 11:00 AM) (10/23/21 7:00 AM) (10/22/21 6: 00 PM) Temperature Route Temporal Temporal Temporal (10/23/21 11:00 AM) (10/23/21 9:00 AM) (10/23/21 7: 00 AM) Dry Weight 72.2 kg (10/22/21 6:51 AM) Weight Obtained Via Bed scale (10/22/21 3:47 PM) Dry Weight Obtained Via Standing scale (10/22/21 6:51 AM) Social History Social History Type Response Smoking Status Current every day smoker; Ot her: 6-10/ day; entered on: 02/17/15 Sex
--- OUTSIDE RECORDS SUMMARY | 2022-04-12 02:50 | XMS_ITS | Continuity of Care Document ---
:1970 Author Organization [facility] Address [address] [place] [address]- Care Team Providers Name Role Phone Tim Riley DO Primary Care Physician Encounter [facility] Date(s): 06/02/21 - 06/02/[address] [address]- Encounter Diagnosis Alcoholic gastritis (Final) - 06/02/21 Discharge Disposition: A-D/C Home Attending Physician: Sharlene Betancourt DO Admitting Physician: Sharlene Betancourt DO Referring Physician: Not on Staff, Referring MD Allergies, Adverse Reactions, Alerts No Known Allergies [...] med not scanning new distributer per fellow [id number] Comment: INJECTIONS GIVEN BILATERAL THIGHS AND BILATERAL UPPER [id number] Note: vis given vis date 07/13 Medications acamprosate 333 mg oral delayed release tablet 2 tablet = 666 mg, By Mouth, 3 times a day, Take 666 mg three times per day., # 180 tablet, 1 Refills, Maintenance, 08/14/20 8:55:00 EDT, CR Tablet, [facility], Partial fill upon patient request if the prescription is for a schedul... Start Date: 08/14/20 Stop Date: 10/13/20 Status: OrderedCPAP Machine See Instructions, # 1 each, Maintenance, AutoCPAP 8-20, 03/24/19 13:40:00 EST, Compound Start Date: 03/24/19 Status: Ordereddiclofenac 1% topical gel 1 application, Topically, 4 times a day, PRN Pain , Moderate, Kenyan: Lower back not to exceed 32 grams/day, # 100 Gm, 0 Refills, Maintenance, 10/19/20 15:39:00 EDT, Gel, [facility], Partial fill upon patient request if the prescript... Start Date: 10/19/20 Stop Date: 11/02/20 Status: Orderedlidocaine 5% topical ointment 1 application, Topically, 3 times a day, PRN Pain , Moderate, Print instructions in belgian wash hands thoroughly after application, # 50 Gm, 0 Refills, Maintenance, 07/23/20 11:42:00 EDT, Ointment, [facility], Partial fill upon patie... Start Date: [...] Obstructive sleep apnea(Confirmed) Active *BHN/BHCP/CP-Sabine Bruce Active [phone]/Health senior living, active care coordination(Confirmed) Vital Signs Most recent to oldest [Reference Range]: 1 2 Oxygen Saturation [94-100 %] 98 % 100 % (06/02/21 9:15 PM) (06/02/21 7:41 PM) Pulse Rate [55-90 bpm] 66 bpm 75 bpm (06/02/21 9:15 PM) (06/02/21 7:41 PM) Blood Pressure [90-138/55-84 mm Hg] 125/54 mm Hg 119/ 86 mm Hg (06/02/21 9:15 PM) (06/02/21 7:41 PM) Respiratory Rate [16-30 br/min] 18 br/min 16 br/mi n (06/02/21 9:15 PM) (06/02/21 7:41 PM) Temperature [96.8-100.4 DegF] 98.3 DegF (06/02/21 7:41 PM) Mode of Delivery (Oxygen) Room air Room air (06/02/21 9:15 PM) (06/02/21 7:41 PM) Blood pressure sites Arm, right Arm, right (06/02/21 9:15 PM) (06/02/21 7:41 PM) Temperature Route Oral (06/02/21 7:41 PM) Social History Social History Type Response Smoking Status Current every day smoker; Ot her: 6-10/ day; entered on: 02/17/15 Sex
--- OUTSIDE RECORDS SUMMARY | 2022-04-12 02:50 | XMS_ITS | Continuity of Care Document ---
:1970 Author Organization [facility] Address [address] [place] [address]- Care Team Providers Name Role Phone Tim Riley DO Primary Care Physician [place] [facility] [place] 10[place] - 12/05/20 [facility] [address], [place] [address] Attending Physician: Karthikeyan Zamora MD Admitting Physician: Karthikeyan Zamora MD Allergies, Adverse Reactions, Alerts Substance Reaction [...] med not scanning new distributer per fellow [id number] Comment: INJECTIONS GIVEN BILATERAL THIGHS AND BILATERAL UPPER [id number] Note: vis given vis date 07/13 Medications [...] times a day, PRN Pain , Moderate, Persian: Lower back not to exceed 32 grams/day, # 100 Gm, 0 Refills, Maintenance, 10/19/20 15:39:00 EDT, Gel, [facility], Partial fill upon patient request if the prescript... Start Date: 10/19/20 Stop Date: 11/02/20 Status: Orderedlidocaine 5% topical ointment 1 application, Topically, 3 times a day, PRN Pain , Moderate, Print instructions in armenian wash hands thoroughly after application, # 50 Gm, 0 Refills, Maintenance, 07/23/20 11:42:00 EDT, Ointment, [facility], Partial fill upon patie... Start Date: [...] Obstructive sleep apnea(Confirmed) Active *BHN/BHCP/CP-Sabine Bruce Active [phone]/Health longterm, active care coordination(Confirmed) Social History Social History Type Response Smoking Status Current every day smoker; Ot her: 6-10/ day; entered on: 02/17/15 Sex
--- OUTSIDE RECORDS SUMMARY | 2022-04-12 02:50 | XMS_ITS | Continuity of Care Document ---
:1970 Author Organization [facility] Address [address] [place] [address]- Care Team Providers Name Role Phone Tim Riley DO Primary Care Physician En[place] [facility] [place] Date(s): 08/15/20 - 12/02/20 [facility] [address] [place] [address]- Attending Physician: Kristopher Rangel MD Admitting Physician: Kristopher Rangel MD Referring Physician: Hazel Reilly NP Allergies, Adverse Reactions, Alerts Substance Reaction Severity [...] med not scanning new distributer per fellow [id number] Comment: INJECTIONS GIVEN BILATERAL THIGHS AND BILATERAL UPPER [id number] Note: vis given vis date 07/13 Medications acamprosate 333 mg oral delayed release tablet 2 tablet = 666 mg, By Mouth, 3 times a day, Take 666 mg three times per day., # 180 tablet, 1 Refills, Maintenance, 08/14/20 8:55:00 EDT, CR Tablet, [facility], Partial fill upon patient request if the prescription is for a schedul... Start Date: 08/14/20 Stop Date: 10/13/20 Status: OrderedCPAP Machine See Instructions, # 1 each, Maintenance, AutoCPAP 8-20, 03/24/19 13:40:00 EST, Compound Start Date: 03/24/19 Status: Ordereddiclofenac 1% topical gel 1 application, Topically, 4 times a day, PRN Pain , Moderate, Botswanan: Lower back not to exceed 32 grams/day, # 100 Gm, 0 Refills, Maintenance, 10/19/20 15:39:00 EDT, Gel, [facility], Partial fill upon patient request if the prescript... Start Date: 10/19/20 Stop Date: 11/02/20 Status: Orderedlidocaine 5% topical ointment 1 application, Topically, 3 times a day, PRN Pain , Moderate, Print instructions in maltese wash hands thoroughly after application, # 50 Gm, 0 Refills, Maintenance, 07/23/20 11:42:00 EDT, Ointment, [facility], Partial fill upon patie... Start Date: [...] Obstructive sleep apnea(Confirmed) Active *BHN/BHCP/CP-Sabine Bruce Active [phone]/Health assisted, active care coordination(Confirmed) Social History Social History Type Response Smoking Status Current every day smoker; Ot her: 6-10/ day; entered on: 02/17/15 Sex
--- OUTSIDE RECORDS SUMMARY | 2022-04-12 02:50 | XMS_ITS | Continuity of Care Document ---
:1970 Author Organization [facility] Address [address] [place] [address]- Care Team Providers Name Role Phone Tim Riley DO Primary Care Physician [place] [facility] [place](s[place] 03/04/21 - 04/03/21 [facility] [address] [place] [address]- [place] Allergies, Adverse Reactions, Alerts Substance Reaction Severity [...] med not scanning new distributer per fellow [id number] Comment: INJECTIONS GIVEN BILATERAL THIGHS AND BILATERAL UPPER [id number] Note: vis given vis date 07/13 Medications acamprosate 333 mg oral delayed release tablet 2 tablet = 666 mg, By Mouth, 3 times a day, Take 666 mg three times per day., # 180 tablet, 1 Refills, Maintenance, 08/14/20 8:55:00 EDT, CR Tablet, [facility], Partial fill upon patient request if the prescription is for a schedul... Start Date: 08/14/20 Stop Date: 10/13/20 Status: OrderedCPAP Machine See Instructions, # 1 each, Maintenance, AutoCPAP 8-20, 03/24/19 13:40:00 EST, Compound Start Date: 03/24/19 Status: Ordereddiclofenac 1% topical gel 1 application, Topically, 4 times a day, PRN Pain , Moderate, Georgian: Lower back not to exceed 32 grams/day, # 100 Gm, 0 Refills, Maintenance, 10/19/20 15:39:00 EDT, Gel, [facility], Partial fill upon patient request if the prescript... Start Date: 10/19/20 Stop Date: 11/02/20 Status: Orderedlidocaine 5% topical ointment 1 application, Topically, 3 times a day, PRN Pain , Moderate, Print instructions in austrian wash hands thoroughly after application, # 50 Gm, 0 Refills, Maintenance, 07/23/20 11:42:00 EDT, Ointment, [facility], Partial fill upon patie... Start Date: 07/23/20 [...] Obstructive sleep apnea(Confirmed) Active *BHN/BHCP/CP-Sabine Bruce Active [phone]/Health senior living, active care coordination(Confirmed) Social History Social History Type Response Smoking Status Current every day smoker; Ot her: 6-10/ day; entered on: 02/17/15 Sex
--- OUTSIDE RECORDS SUMMARY | 2022-04-12 02:50 | XMS_ITS | Continuity of Care Document ---
:1970 Author Organization [facility] Address [address] [place] [address]- Care Team Providers Name Role Phone Tim Riley DO Primary Care Physician [facility] 07[facility]20 - 08/30/20 [facility] [address] [place] [id number] Attending Physician: Hazel Reilly NP Admitting Physician: Hazel Reilly NP Allergies, Adverse Reactions, [...] med not scanning new distributer per fellow [id number] Comment: INJECTIONS GIVEN BILATERAL THIGHS AND BILATERAL UPPER [id number] Note: vis given vis date 07/13 Medications acamprosate 333 mg oral delayed release tablet 2 tablet = 666 mg, By Mouth, 3 times a day, Take 666 mg three times per day., # 180 tablet, 1 Refills, Maintenance, 08/14/20 8:55:00 EDT, CR Tablet, [facility], Partial fill upon patient request if the prescription is for a schedul... Start Date: 08/14/20 Stop Date: 10/13/20 Status: OrderedCPAP Machine See Instructions, # 1 each, Maintenance, AutoCPAP 8-20, 03/24/19 13:40:00 EST, Compound Start Date: 03/24/19 Status: Orderedlidocaine 5% topical ointment 1 application, Topically, 3 times a day, PRN Pain , Moderate, Print instructions in polish wash hands thoroughly after application, # 50 Gm, 0 Refills, Maintenance, 07/23/20 11:42:00 EDT[facility]... Start [...] Obstructive sleep apnea(Confirmed) Active *BHN/BHCP/CP-Sabine Bruce Active [phone]/Health residential, active care coordination(Confirmed) Social History Social History Type Response Smoking Status Current every day smoker; Ot her: 6-10/ day; entered on: 02/17/15 Sex
--- OUTSIDE RECORDS SUMMARY | 2022-04-12 02:50 | XMS_ITS | Continuity of Care Document ---
:1970 Author Organization [facility] Address [address] [place] [address]- Care Team Providers Name Role Phone Cait COTTON, Gaurav Primary Care Physician [facility] Date[facility]s): 09/04/21 - 10/04/21 [facility] [address], [place] [address] Allergies, Adverse Reactions, Alerts No [...] 02/18/15 Not Given Patient Refuses SARS-CoV-2 mRNA ([id number]) vax 08/23/21 Not Giv en Patient Refuses 1Admin Note: VIS 7-122Result Comment: med not scanning new distributer per fellow [id number] Comment: INJECTIONS GIVEN BILATERAL THIGHS AND BILATERAL UPPER [id number] Note: vis given vis date 07/13 Medications [...] 09/11/21 11:33:00 EDT, Route to Pharmacy Electronically, [facility]/pharmacy #[id number], Partial fill upon patient [...] 09/11/21 11:36:00 EDT, Route to Pharmacy Electronically, [facility]/pharmacy #[id number], Partial fill upon patient [...] 09/11/21 11:39:00 EDT, Route to Pharmacy Electronically, [facility]/pharmacy #[id number], Partial fill upon patient request if the prescription is for a schedule II opioid dr... Start Date: 09/11/21 Status: Ordered Problem List Condition Effective Dates Status Health Status Informant ALD (alcoholic liver 07/31/20 Active disease)(Confirmed) Diarrhea(Confirmed) Active Rib fracture, chronic. left lateral Active 5th.(Confirmed) Obstructive sleep apnea(Confirmed) Active *BHN/BHCP/CP-Sabine Bruce Active [phone]/[facility], active care coordination(Confirmed) Seizure disorder(Confirmed) Active Social History Social History Type Response Smoking Status Current every day smoker; Ot her: 6-10/ day; entered on: 02/17/15 Sex
--- OUTSIDE RECORDS SUMMARY | 2022-04-12 02:50 | XMS_ITS | Continuity of Care Document ---
:1970 Author Organization [facility] Address [address] [place] [address]- Care Team Providers Name Role Phone Gallo Ness DO Primary Care Physician [facility] Date[facility]s): 09/30/21 - 10/30/21 [facility] [address], [place] [address] Allergies, Adverse Reactions, Alerts [...] 02/18/15 Not Given Patient Refuses SARS-CoV-2 mRNA ([id number]) vax 08/23/21 Not Giv en Patient Refuses 1Admin Note: VIS 7-122Result Comment: med not scanning new distributer per fellow [id number] Comment: INJECTIONS GIVEN BILATERAL THIGHS AND BILATERAL UPPER [id number] Note: vis given vis date 07/13 Medications [...] 09/11/21 11:33:00 EDT, Route to Pharmacy Electronically, [facility]/pharmacy #[id number], Partial fill upon [...] 09/11/21 11:36:00 EDT, Route to Pharmacy Electronically, [facility]/pharmacy #[id number], Partial fill upon patient request if the prescription is for a schedule II opioid laine... Start Date: 09/11/21 Status: OrderedSEROquel 25 mg oral tablet 25 mg, 1, tablet, By Mouth, Daily in AM, 1 am and 2 hs, # 30 tablet, Refills 6, Tot. Refills 6, Maintenance, 09/11/21 11:34:00 EDT, Route to Pharmacy Electronically, [facility]/pharmacy #[id number], Partial fill upon patient request if the prescription is for a sc... Start Date: 09/11/21 Stop Date: 04/09/22 Status: Orderedthiamine 100 mg oral tablet 100 mg, 1, tablet, By Mouth, Daily, # 100 tablet, Refills 6, Tot. Refills 6, Maintenance, 09/11/21 11:39:00 EDT, Route to Pharmacy Electronically, [facility]/pharmacy #[id number], Partial fill upon [...]
--- OUTSIDE RECORDS SUMMARY | 2022-04-12 02:50 | XMS_ITS | Continuity of Care Document ---
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 scanning new distributer per fellow [email or web address] Comment: INJECTIONS GIVEN BILATERAL THIGHS AND BILATERAL UPPER [id number] Note: vis given vis date 07/13 Medications [...] 09/11/21 11:33:00 EDT, Route to Pharmacy Electronically, [facility]/pharmacy #[id number], Partial fill upon patient request [...] 09/11/21 11:36:00 EDT, Route to Pharmacy Electronically, [facility]/pharmacy #[id number], Partial fill upon patient request [...] 09/11/21 11:39:00 EDT, Route to Pharmacy Electronically, [facility]/pharmacy #[id number], Partial fill upon patient request if the prescription is for a schedule II opioid dr... Start Date: 09/11/21 Status: Ordered Problem List Condition Effective Dates Status Health Status Informant ALD (alcoholic liver 07/31/20 Active disease)(Confirmed) Rib fracture, chronic. left lateral Active 5th.(Confirmed) History of alcoholism(Confirmed) Active Anxiety and depression(Confirmed) Active IAN (obstructive sleep Active apnea)(Confirmed) *BHN/BHCP/CP-Sabine Bruce Active [phone]/Health alf, active care coordination(Confirmed) Seizure disorder(Confirmed) Active TBI (traumatic brain Active injury)(Confirmed) Social History Social History Type Response Smoking Status Current every day smoker; Ot her: 6-10/ day; entered on: 02/17/15 Sex
--- OUTSIDE RECORDS SUMMARY | 2022-04-12 02:50 | XMS_ITS | Continuity of Care Document ---
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 Start Date: 09/11/21 Status: OrderedSEROquel 25 mg oral tablet 25 mg, 1, tablet, By Mouth, Daily in AM, 1 am and 2 hs, # 30 tablet, Refills 6, Tot. Refills 6, Maintenance, 09/11/21 11:34:00 EDT, Route to Pharmacy Electronically, [facility]/pharmacy #[id number], Partial fill upon patient request if the prescription is for a sc... Start Date: 09/11/21 Stop Date: 04/09/22 Status: Orderedthiamine 100 mg oral tablet 100 mg, 1, tablet, By Mouth, Daily, # 100 tablet, Refills 6, Tot. Refills 6, Maintenance, 09/11/21 11:39:00 EDT, Route to Pharmacy Electronically, [facility]/pharmacy #[id number], Partial fill upon patient request [...]
--- OUTSIDE RECORDS SUMMARY | 2022-04-12 02:50 | XMS_ITS | Continuity of Care Document ---
:1970 Author Organization [facility] Address [address] [place] [address]- Care Team Providers Name Role Phone Not on Staff, PCP Primary Care Physician Unavailable Encounter [facility] Date(s): 07/31/21 - 08/26/[address] [id number] Encounter Diagnosis Fall (Final) - 07/31/21 Discharge Disposition: A-Transfer SNF Attending Physician: Carmen COTTON, Ankit Admitting Physician: Carmen COTTON, Ankit Referring Physician: Not on Staff, Referring MD Allergies, Adverse Reactions, Alerts No Known Allergies Immunizations Given and Recorded Vaccine Date Status Refusal Reason SARS-CoV-2 (COVID-19) mRNA BNT-162b2 vac 08/20/20 Recorde d SARS-CoV-2 (COVID-19) mRNA BNT-162b2 vac 07/30/20 Recorde d influenza virus vaccine, inactivated 03/13/20 Recorded Not Given Vaccine Date Status Refusal Reason SARS-CoV-2 mRNA (iohgipr-jezz-enwve) vax 08/23/21 Not Giv en Patient Refuses Medications cloNIDine 0.1 mg oral tablet 0.1 mg, 1, tablet, By Mouth, 2 times a day, PRN, Maintenance, as needed, 07/31/21 12:25:00 EDT Start Date: 07/31/21 Status: Ordereddocusate sodium 150 mg/15 ml oral liquid 10 mL = 100 mg, By Mouth, 2 times a day, PRN Constipation, 0 Refills, Maintenance, 08/26/21 16:34:00EDT, Liquid, Partial fill upon patient request if the prescription is for a schedule II opioid drug. Start Date: 08/26/21 Status: OrderedFioricet Tablet 1 tablet, Tablet, By Mouth, Every 4 hours, PRN for Headache, Routine, 08/10/21 11:10:00 EDT Notes: Butalbital 50mg, Not to exceed 4000mg of Acetaminophen per 24 hours. 325mg, Caffeine 40mg pertablet Start Date: 08/10/21 Stop Date: 09/09/21 Status: OrderedFioricet Tablet 1 tablet, By Mouth, Every 4 hours, PRN Headache, 0 Refills, Maintenance, 08/26/21 16:34:00 EDT, Tablet, Partial fill upon patient request if the prescription is for a schedule II opioid drug. Start Date: 08/26/21 Status: Orderedfolic acid 1 mg oral tablet 1 mg, 1, tablet, By Mouth, Daily, Refills 0, Maintenance, 08/26/21 16:34:00 EDT, Partial fill upon patient request if the prescription is for a schedule II opioid drug. Start Date: 08/26/21 Status: Orderedgabapentin 100 mg oral capsule 100 mg, Capsule, By Mouth, 08/26/21 15:00:00 EDT Start Date: 08/26/21 Stop Date: 08/26/21 Status: Completedgabapentin 100 mg oral capsule 100 mg, 1, capsule, By Mouth, 3 times a day, Refills 0, Maintenance, 08/26/21 16:34:00 EDT, Partial fill upon patient request if the prescription is for a schedule II opioid drug. Start Date: 08/26/21 Status: Orderedibuprofen 600 mg oral tablet 600 mg, 1, tablet, By Mouth, 3 times a day, PRN, Refills 0, Maintenance, Pain , Mild, 08/26/21 16:34:00 EDT, Partial fill upon patient request if the prescription is for a schedule II opioid drug. Start Date: 08/26/21 Status: Orderedlacosamide 200 mg oral tablet 1 tablet = 200 mg, By Mouth, 2 times a day, 0 Refills, Maintenance, 08/26/21 16:34:00 EDT, Tablet, Partial fill upon patient request if the prescription is for a schedule II opioid drug. Start Date: 08/26/21 Status: OrderedlevETIRAcetam 100 mg/mL oral solution 15 mL = 1,500 mg, By Mouth, 2 times a day, 0 Refills, Maintenance, 08/26/21 16:34:00 EDT, Solution, Partial fill upon patient request if the prescription is for a schedule II opioid drug. Start Date: 08/26/21 Status: Orderedmelatonin 5 mg oral tablet By Mouth, Daily at bedtime, PRN Insomnia, 0 Refills, Maintenance, 08/26/21 16:34:00 EDT, Tablet, Partial fill upon patient request if the prescription is for a schedule II opioid drug. Start Date: 08/26/21 Status: Orderedpyridoxine 50 mg oral tablet 50 mg, 1, tablet, By Mouth, Daily, Refills 0, Maintenance, 08/26/21 16:33:00 EDT, Partial fill upon patient request if the prescription is for a schedule II opioid drug. Start Date: 08/26/21 Status: OrderedSEROquel 25 mg oral tablet 25 mg, 1, tablet, By Mouth, Daily in AM, Refills 0, Maintenance, 08/26/21 16:35:00 EDT, Partial fillupon patient request if the prescription is for a schedule II opioid drug. Start Date: 08/26/21 Status: OrderedSEROquel 25 mg oral tablet 50 mg, 2, tablet, By Mouth, Daily at bedtime, Refills 0, Maintenance, 08/26/21 16:35:00 EDT, Partialfill upon patient request if the prescription is for a schedule II opioid drug. Start Date: 08/26/21 Status: Orderedthiamine 100 mg oral tablet 100 mg, 1, tablet, By Mouth, Daily, Refills 0, Maintenance, 08/26/21 16:33:00 EDT, Partial fill uponpatient request if the prescription is for a schedule II opioid drug. Start Date: 08/26/21 Status: Ordered Results Orders for Microbiology Reports Name Date Urine Culture 08/14/21 Blood Culture 08/13/21 Blood Culture #2 08/13/21 CSF Culture w/ Gram Smear 08/05/21 Sputum Culture w/ Gram Smear 08/05/21 Blood Culture #2 08/05/21 Blood Culture 08/05/21 Anaerobic Culture (ANAEROBIC CULTURE) 08/02/21 Cranial Bone Flap (Autologous) Culture (CRANIAL BONE F LAP (AUTOLOGOUS) CULT) 08/02/21 Cranial Bone Flap (Autologous) Culture (CRANIAL BONE F LAP (AUTOLOGOUS) CULT) 08/02/21 Microbiology Reports (Most Recent Ten) TEST:Urine Culture STATUS:Auth (Verified) BODY SITE: SOURCE:URINE COLLECTED DATE/TIME:08/13/21 3:53 PMUrine Culture SPECIMEN DESCRIPTION : URINE CLEAN CATCH/MIDSTREAM SPECIAL REQUESTS : NONE CULTURE : >100,000 COL/ML KLEBSIELLA PNEUMONIAE This isolate was identified using Maldi-TOF system These AST results were performed on the Brandtology ID and AST system REPORT STATUS : FINAL 08/16/2021 ORGANISM >100,000 COL/ML KLEBSIELLA PNEUMONIAE This isolate was identified using Maldi-TOF system METHOD MIN. INHIB. CONC. (MCG/ML) AMPICILLIN RESISTANT AMPICILLIN/SULBACTAM SUSCEPTIBLE AMOXICILLIN/CLAVULAN SUSCEPTIBLE CEFAZOLIN SUSCEPTIBLE CEFEPIME SUSCEPTIBLE CEFTRIAXONE SUSCEPTIBLE CIPROFLOXACIN SUSCEPTIBLE ERTAPENEM SUSCEPTIBLE GENTAMICIN SUSCEPTIBLE LEVOFLOXACIN SUSCEPTIBLE MEROPENEM SUSCEPTIBLE NITROFURANTOIN INTERMEDIATE PIPERACILLIN/TAZOBAC SUSCEPTIBLE TRIMETH/SULFAMETHOX SUSCEPTIBLE TETRACYCLINE SUSCEPTIBLETEST:Blood Culture STATUS:Auth (Verified) BODY SITE: SOURCE:Blood COLLECTED DATE/TIME:08/13/21 1:52 AMBlood Culture SPECIMEN DESCRIPTION : BLOOD NO SITE SPECIAL REQUESTS : NONE CULTURE : NO GROWTH 5 DAYS. REPORT STATUS : FINAL 08/18/2021TEST:Blood Culture, Second Order STATUS:Auth (Verified) BODY SITE: SOURCE:Blood COLLECTED DATE/TIME:08/13/21 1:52 AMBlood Culture, Second Order SPECIMEN DESCRIPTION : BLOOD NO SITE SPECIAL REQUESTS : NONE CULTURE : NO GROWTH 5 DAYS. REPORT STATUS : FINAL 08/18/2021TEST:Spinal Fluid Culture STATUS:Auth (Verified) BODY SITE: SOURCE:CEREBR COLLECTED DATE/TIME:08/05/21 10:42 PMSpinal Fluid Culture SPECIMEN DESCRIPTION : CEREBROSPINAL FLUID SPECIAL REQUESTS : NONE GRAM STAIN : 1+ WHITE BLOOD CELLS NO ORGANISMS SEEN CULTURE : NO GROWTH 3 DAYS REPORT STATUS : FINAL 08/09/2021TEST:Sputum Culture STATUS:Auth (Verified) BODY SITE: SOURCE:ENDOTR COLLECTED DATE/TIME:08/05/21 11:24 AMSputum Culture SPECIMEN DESCRIPTION : ENDOTRACHEAL ASPIRATE SPECIAL REQUESTS : NONE GRAM STAIN : 1+ POLYMORPHONUCLEAR LEUKOCYTES 1+ SQ.EPITHELIAL CELLS 3+ GRAM POSITIVE COCCI 2+ GRAM POSITIVE RODS 1+ GRAM NEGATIVE RODS CULTURE : 3+ NORMAL LIZA REPORT STATUS : FINAL 08/07/2021TEST:Blood Culture, Second Order STATUS:Auth (Verified) BODY SITE: SOURCE:Blood COLLECTED DATE/TIME:08/05/21 7:40 AMBlood Culture, Second Order SPECIMEN DESCRIPTION : BLOOD L HAND SPECIAL REQUESTS : NONE CULTURE : NO GROWTH 5 DAYS. REPORT STATUS : FINAL 08/10/2021TEST:Blood Culture STATUS:Auth (Verified) BODY SITE: SOURCE:Blood COLLECTED DATE/TIME:08/05/21 7:35 AMBlood Culture SPECIMEN DESCRIPTION : BLOOD R SPECIAL REQUESTS : NONE CULTURE : NO GROWTH 5 DAYS. REPORT STATUS : FINAL 08/10/2021TEST:Anaerobic Culture STATUS:Modified/Amended/Corrected BODY SITE: SOURCE:CRANIA COLLECTED DATE/TIME:08/02/21 5:00 PMAnaerobic Culture SPECIMEN DESCRIPTION : CRANIAL BONE FLAP (AUTOLOGOUS) autologus bone flap cranium SPECIAL REQUESTS : NONE CULTURE : NO ANAEROBES DETECTED IN ROUTINE CULTURE REPORT STATUS : FINAL 08/07/2021TEST:Cranial Bone Flap (Autologous) Cult STATUS:Auth (Verified) BODY SITE: SOURCE:CRANIA COLLECTED DATE/TIME:08/02/21 5:00 PMCranial Bone Flap (Autologous) Cult SPECIMEN DESCRIPTION : CRANIAL BONE FLAP (AUTOLOGOUS) SPECIAL REQUESTS : NONE CULTURE : NO ORGANISMS DETECTED IN ROUTINE CULTURE REPORT STATUS : FINAL 08/06/2021TEST:Cranial Bone Flap (Autologous) Cult STATUS:Auth (Verified) BODY SITE: SOURCE:CRANIA COLLECTED DATE/TIME:08/02/21 5:00 PMCranial Bone Flap (Autologous) Cult SPECIMEN DESCRIPTION : CRANIAL BONE FLAP (AUTOLOGOUS) SPECIAL REQUESTS : NONE CULTURE : NO ORGANISMS DETECTED IN ROUTINE CULTURE REPORT STATUS : FINAL 08/06/2021adiology Reports Exam Date Time Procedure Performing Provider Status 08/13/21 1:56 AM Chest Portable Romaine Gaytan; Auth (Verified) Notes:(Chest Portable) Reason For Exam: Fever/Increased White CountRESULT: Chest Portable Chest Portable AP upright at 1:41 AM REASON: Fever Increased White Count; Clinical Question(s): Pneumonia / Pneumonia COMPARISON: 08/08/2021 FINDINGS: LINES AND TUBES: None. LUNGS AND PLEURA: Low lung volumes with mild basilar atelectasis. Lungs are otherwise clear with no definite consolidation. No pleural effusion. No pneumothorax. HEART, MEDIASTINUM AND YOMI: Heart is normal in size. Normal mediastinal and hilar contour. BONES AND SOFT TISSUES: No acute abnormality. IMPRESSION: No evidence of acute abnormality. WSN: [id number] Ordering Physician: Radha Cho Dictated By: Jimenez Urban MD Dictated Date/Time: 08/13/21 9:00 am Reviewed By: Jimenez Urban MD Signed By: Jimenez Urban MD Signed Date/Time: 08/13/21 9:00 am Transcribed By: MICHAEL Transcribed Date/Time: 08/13/21 8:59 am Exam Date Time Procedure Performing Provider Status 08/08/21 6:47 AM Chest Portable Katherine Dang; Auth ([facility] ed) Notes:(Chest Portable) Reason For Exam: Fever/Increased White CountRESULT: Chest Portable Chest Portable INDICATION: Leukocytosis, evaluate for pneumonia. COMPARISON: Multiple priors, the most recent 08/05/2021. FINDINGS: LINES AND TUBES: Endotracheal tube approximately 5.6 cm above the lelo. Enteric tube distal end above the GE junction. LUNGS AND PLEURA: Minimal increased opacification of the left retrocardiac region. Moderate elevation of the right hemidiaphragm with subsegmental atelectasis in the right lung base unchanged.. Normal pulmonary vascularity. No pleural effusion. No pneumothorax. HEART, MEDIASTINUM AND YOMI: Unchanged. Unchanged upper mediastinal and hilar contour. BONES AND SOFT TISSUES: Unchanged deformity of the left lower posterior-lateral ninth rib. IMPRESSION: Minimal increased opacification of the left retrocardiac region could represent atelectasis versus pneumonia. The enteric tube distal end is above the GE junction. Results were discussed via telephone by Dr. Yoder of the surgery team on 08/08/2021 10:24 AM. I have personally reviewed the images and I agree with this report. WSN: [id number] Ordering Physician: Hardik Verdugo Dictated By: Paresh[Radiology] Zachariah COTTON Dictated Date/Time: 08/08/21 11:07 a Reviewed By: Victorino Banks MD, V Signed By: Victorino Banks MD, V Signed Date/Time: 08/08/21 11:12 am Transcribed By: MICHAEL Transcribed Date/Time: 08/08/21 10:25 am Exam Date Time Procedure Performing Provider Status 08/05/21 6:04 AM Chest Portable Romaine Gaytan; Auth (Verified) Notes:(Chest Portable) Reason For Exam: Shortness of BreathRESULT: Chest Portable Chest Portable CLINICAL INDICATION: Reason: Shortness of Breath COMPARISON: Chest x-ray, 08/02/2021. FINDINGS: There is an endotracheal tube with tip about 5.4 cm above the lelo. Enteric tube extendsinto the stomach, tip off the film. Multiple wires are seen over the patient's chest. The cardiac silhouette is within normal limits. Hilar and mediastinal contours are normal. There is mild elevation of the right hemidiaphragm with adjacent atelectasis. Left lung is grossly clear. There is no pneumothorax or CHF. There is probably chronic deformity of several left lateral ribs. IMPRESSION: No acute cardiopulmonary process. WSN: [id number] Ordering Physician: Janeth Crawford Dictated By: Katarina Holder MD Dictated Date/Time: 08/05/21 8:52 am Reviewed By: Katarina Holder MD Signed By: Katarina Holder MD Signed Date/Time: 08/05/21 8:52 am Transcribed By: MICHAEL Transcribed Date/Time: 08/05/21 8:47 am Exam Date Time Procedure Performing Provider Status 08/04/21 9:17 AM Hand Min 3 Views Right Laureen Bethea; [place] (V erified) Notes:(Hand Min 3 Views Right) Reason For Exam: TraumaRESULT: Hand Min 3 Views Right Hand Min 3 Views Right CLINICAL INDICATION: Reason: Trauma; Clinical Question(s): Fracture COMPARISONS: None TECHNIQUE: AP, lateral and oblique views of the right hand were obtained. FINDINGS: Evaluation is limited by flexion positioning of the digit. There is soft tissue swelling of the second digit and thumb. There is no fracture or dislocation. Normal radiocarpal alignment is maintained. Carpal joint spaces and bone contours are normal. MCP joint space heights are maintained. There is mild PIP joint space narrowing throughout all digits. There is moderate DIP joint space narrowing at the second through fourth digits and moderate to severe narrowing at the fifth digit. There are no juxta-articular calcifications.. No retained radiodense foreign body. IMPRESSION: Soft tissue swelling as above. No fracture or dislocation is visualized. Arthritic changes as above. WSN: [id number] Ordering Physician: Hardik Verdugo Dictated By: Jimenez Toney MD Dictated Date/Time: 08/04/21 12:33 p Reviewed By: Jimenez Toney MD Signed By: Jimenez Toney MD Signed Date/Time: 08/04/21 12:33 pm Transcribed By: MICHAEL Transcribed Date/Time: 08/04/21 12:31 pm Exam Date Time Procedure Performing Provider Status 08/02/21 3:42 PM Chest Portable Maryellen Branch; [place] (V erified) Notes:(Chest Portable) Reason For Exam: Tube PlacementRESULT: Chest Portable Chest Portable AP semiupright at 3:23 PM REASON: Tube Placement / COMPARISON: Earlier today. FINDINGS: LINES AND TUBES: Endotracheal tube ends 5 cm above the lelo. Enteric tube courses below the diaphragm, tip not included in the [id number]. Multiple wires project over the patient. LUNGS AND PLEURA: Clear lungs. Normal pulmonary vascularity. No pleural effusion. No pneumothorax. HEART, MEDIASTINUM AND YOMI: Heart is normal in size. Normal mediastinal and hilar contour. BONES AND SOFT TISSUES: No acute abnormality. IMPRESSION: Support structures as above. WSN: [id number] Ordering Physician: Brian Mejias Dictated By: Jimenez Urban MD Dictated Date/Time: 08/02/21 4:48 pm Reviewed By: Jimenez Urban MD Signed By: Jimenez Ubran MD Signed Date/Time: 08/02/21 4:48 pm Transcribed By: MICHAEL Transcribed Date/Time: 08/02/21 4:47 pm Exam Date Time Procedure Performing Provider Status 08/02/21 1:26 PM Chest Portable Maddie Barrios; [place] (Verifie d) Notes:(Chest Portable) Reason For Exam: Tube PlacementRESULT: Chest Portable Chest Portable Reason: Tube Placement COMPARISON: Chest radiograph 07/31/2021 FINDINGS: LINES AND TUBES: Endotracheal tube tip terminates 4.6 cm above the lelo. Previously identified enteric tube and esophageal temperature probe are not visualized. LUNGS AND PLEURA: Mild bibasilar atelectasis. No pleural effusion. No pneumothorax. HEART, MEDIASTINUM AND YOMI: Heart is normal in size. Normal upper mediastinal and hilar contour. BONES AND SOFT TISSUES: No acute abnormality. IMPRESSION: 1. No acute cardiopulmonary abnormality. 2. Endotracheal tube in satisfactory position. I have personally reviewed the images and I agree with this report. WSN: [id number] Ordering Physician: Brian Mejias Dictated By: Edd Hallman DO Dictated Date/Time: 08/02/21 1:40 pm Reviewed By: Jasiel Henriquez MD Signed By: Jasiel Henriquez MD Signed Date/Time: 08/02/21 1:45 pm Transcribed By: MICHAEL Transcribed Date/Time: 08/02/21 1:37 pm Exam Date Time Procedure Performing Provider Status 07/31/21 10:14 AM Pelvis 1 or 2 Views Gray Diaz (Verif ied) Notes:(Pelvis 1 or 2 Views) Reason For Exam: TraumaRESULT: Pelvis 1 or 2 Views Pelvis 1 or 2 Views REASON: Trauma; Clinical Question(s): Fracture COMPARISON: None. FINDINGS: There is no fracture or dislocation. Normal hips and sacroiliac joints. Normal soft tissues. IMPRESSION: No evidence of acute osseous abnormality. WSN: [id number] Ordering Physician: Hardik Verdugo Dictated By: Jimenez Urban MD Dictated Date/Time: 07/31/21 12:13 p Reviewed By: Jimenez Urban MD Signed By: Jimenez Urban MD Signed Date/Time: 07/31/21 12:13 pm Transcribed By: MICHAEL Transcribed Date/Time: 07/31/21 12:12 pm Exam Date Time Procedure Performing Provider Status 07/31/21 4:41 AM Chest Portable Lulu Zamora (Verified) Notes:(Chest Portable) Reason For Exam: Line PlacementRESULT: Chest Portable Chest Portable Reason: Line Placement COMPARISON: Same day chest radiograph FINDINGS: Endotracheal tube tip 6 cm above the lelo. Enteric tube terminating outside the field of view, however coursing into the stomach. Esophageal temperature probe overlies the mid thoracic spine. The lungs are clear. IMPRESSION: No acute abnormality. Support lines and tubes are outlined above. I have personally reviewed the images and I agree with this report. WSN: [id number] Ordering Physician: Kulwant Tamayo Dictated By: Edd Hallman DO Dictated Date/Time: 07/31/21 9:19 am Reviewed By: Yousif Benz MD Signed By: Yousif Benz MD Signed Date/Time: 07/31/21 9:24 am Transcribed By: MICHAEL Transcribed Date/Time: 07/31/21 8:21 am Exam Date Time Procedure Performing Provider Status 07/31/21 12:46 AM Chest Portable Roseanne Bruce; [place] (Chinoandrez rosenthal) Notes:(Chest Portable) Reason For Exam: Pain;Other:RESULT: Chest Portable Chest Portable Reason: Pain; Clinical Question(s): Fracture, pneumothorax, pulmonary contusion COMPARISON: None. FINDINGS: Endotracheal tube tip terminates 6 cm above the lelo. Enteric tube is seen advanced on the second set of images and terminating in the distal gastric body. The lungs are clear. Left tenth and sixth lateral rib fractures may be old IMPRESSION: No acute abnormality. Left tenth and sixth lateral rib fractures may be old I have personally reviewed the images and I agree with this report. WSN: [id number] Ordering Physician: Radha Cho Dictated By: Edd Hallman DO Dictated Date/Time: 07/31/21 8:51 am Reviewed By: Yousif Benz MD Signed By: Yousif Benz MD Signed Date/Time: 07/31/21 8:56 am Transcribed By: MICHAEL Transcribed Date/Time: 07/31/21 8:14 am Vital Signs Most recent to oldest 1 2 3 [Reference Range]: Height 172 cm 172 cm 172 cm (08/26/21 5:24 PM) (08/26/21 12:45 PM) (08/26/21 9: 35 AM) Weight 65.7 kg 65.4 kg 65.7 kg (08/23/21 5:59 AM) (08/22/21 7:40 AM) (08/21/21 6:2 4 AM) Oxygen Saturation [94-100 %] 100 % 100 % 100 % (08/26/21 5:24 PM) (08/26/21 12:45 PM) (08/26/21 9: 35 AM) Pulse Rate [55-90 bpm] 86 bpm 83 bpm 93 bpm (08/26/21 5:24 PM) (08/26/21 12:45 PM) *H* (08/26/21 9:35 AM ) Body Mass Index [18.5-24.99] 23.8 (07/31/21 4:45 AM) Blood Pressure [90-138/55-84 105/78 mm Hg 108/77 mm Hg 94/ 67 mm Hg mm Hg] (08/26/21 5:24 PM) (08/26/21 12:45 PM) (08/26/21 9: 35 AM) Respiratory Rate [16-30 20 br/min 14 br/min 17 br/mi n br/min] (08/26/21 5:24 PM) *L* (08/26/21 4:01 PM) (08/26/21 5:04 PM) Temperature [96.8-100.4 DegF] 98.2 DegF 97.9 DegF 96 .9 DegF (08/26/21 5:24 PM) (08/26/21 12:45 PM) (08/26/21 9: 35 AM) Liters per Minute 0 L/min 0 L/min 0 L/min (08/26/21 5:24 PM) (08/26/21 12:45 PM) (08/26/21 9: 35 AM) Mode of Delivery (Oxygen) Room air Room air Room a ir (08/26/21 5:24 PM) (08/26/21 12:45 PM) (08/26/21 8: 00 AM) Blood pressure sites Arm, left Arm, left Arm, left (08/26/21 5:24 PM) (08/26/21 12:45 PM) (08/26/21 9: 35 AM) Temperature Route Temporal Temporal Temporal (08/26/21 5:24 PM) (08/26/21 12:45 PM) (08/26/21 9: 35 AM) Dry Weight 70.4 kg 70.4 kg (07/31/21 4:45 AM) (07/31/21 4:43 AM) Weight Obtained Via Standing scale Standing scale Standing sca le (08/23/21 5:59 AM) (08/22/21 7:40 AM) (08/21/21 6:2 4 AM)
--- OUTSIDE RECORDS SUMMARY | 2022-04-12 02:50 | XMS_ITS | Continuity of Care Document ---
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 [id number] Comment: INJECTIONS GIVEN BILATERAL THIGHS AND BILATERAL UPPER [id number] Note: vis given vis date 07/13 Medications acamprosate 333 mg oral delayed release tablet 2 tablet, By Mouth, 3 times a day, # 180 tablet, 1 Refills, [facility], 172, cm,02/21/21 15:21:00 EST, Height Start Date: 08/07/21 Status: OrderedCPAP Machine See Instructions, # 1 each, Maintenance, AutoCPAP 8-20, 03/24/19 13:40:00 EST, Compound Start Date: 03/24/19 Status: Ordereddiclofenac 1% topical gel 1 application, Topically, 4 times a day, PRN Pain , Moderate, Irish: Lower back not to exceed 32 grams/day, # 100 Gm, 0 Refills, Maintenance, 10/19/20 15:39:00 EDT, Gel, [facility], Partial fill upon patient request if the prescript... Start Date: 10/19/20 Stop Date: 11/02/20 Status: Orderedlidocaine 5% topical ointment 1 application, Topically, 3 times a day, PRN Pain , Moderate, Print instructions in malay wash hands thoroughly after application, # 50 Gm, 0 Refills, Maintenance, 07/23/20 11:42:00 EDT, Ointment, [facility], Partial fill upon patie... Start Date: [...] Obstructive sleep apnea(Confirmed) Active *BHN/BHCP/CP-Sabine Bruce Active [phone]/Health group home, active care coordination(Confirmed) Seizure disorder(Confirmed) Active Social History Social History Type Response Smoking Status Current every day smoker; Ot her: 6-10/ day; entered on: 02/17/15 Sex
--- OUTSIDE RECORDS SUMMARY | 2022-04-12 02:50 | XMS_ITS | Continuity of Care Document ---
:1970 Author Organization [facility] Address [address] [place] [address]- Care Team Providers Name Role Phone Tim Riley DO Primary Care Physician Encounter [facility] Date(s): 06/18/21 - 07/18/21 [facility] [address], [place] 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 Start Date: 08/14/20 Stop Date: 10/13/20 Status: OrderedCPAP Machine See Instructions, # 1 each, Maintenance, AutoCPAP 8-20, 03/24/19 13:40:00 EST, Compound Start Date: 03/24/19 Status: Ordereddiclofenac 1% topical gel 1 application, Topically, 4 times a day, PRN Pain , Moderate, Mauritian: Lower back not to exceed 32 grams/day, # 100 Gm, 0 Refills, Maintenance, 10/19/20 15:39:00 EDT, Gel, [facility], Partial fill upon patient request if the prescript... Start Date: 10/19/20 Stop Date: 11/02/20 Status: Orderedlidocaine 5% topical ointment 1 application, Topically, 3 times a day, PRN Pain , Moderate, Print instructions in [place] wash hands thoroughly after application, # 50 Gm, 0 Refills, Maintenance, 07/23/20 11:42:00 EDT, Ointment, [facility], Partial fill upon patie... Start [...] Obstructive sleep apnea(Confirmed) Active *BHN/BHCP/CP-Sabine Bruce Active [phone]/[facility], active care coordination(Confirmed) Social History Social History Type Response Smoking Status Current every day smoker; Ot her: 6-10/ day; entered on: 02/17/15 Sex
[2022-04-12 03:45] LABS: MANUAL DIFF FLAG NO
[2022-04-12 03:47] LABS: Basophils Percent Auto 0.7 % (0-2); Eosinophils Percent Auto 1.1 % (0-4); Hematocrit 38.6 % (42.0-52.0); Hemoglobin 13.4 g/dl (14.0-18.0); Imm Gran Abs Auto 0.01 X10*3/uL (0.00-0.03); Imm Gran Pct Auto 0.4 % (0.0-0.4); Lymphocytes Absolute Auto 1.1 X10*3/uL (1.2-4.9); Mean Corpuscular HGB Conc 34.7 g/dl (31.0-36.0); Mean Corpuscular Hemoglobin 31.4 pg (27.0-33.0); Mean Corpuscular Volume 90.4 fL (80.0-98.0); Mean Platelet Volume 10.6 fL (9.4-12.4); Monocytes Absolute Auto 0.3 X10*3/uL (0.1-1.2); Monocytes Percent Auto 10.9 % (2-11); Neutrophils Absolute Auto 1.4 x10*3/uL (2.0-8.3); Neutrophils Percent Auto 49.9 % (45-73); Red Blood Count 4.27 X10*6/uL (4.60-5.80); Red Cell Distribution Width 13.4 % (11.0-16.0); White Blood Count 2.8 X10*3/uL (4.8-10.8)
[2022-04-12 03:49] LABS: Platelet Count 62 X10*3/uL (160-400)
--- NOTE | 2022-04-12 04:01 | PC.NURSE ---
Addendum entered by Neetu Schilling 04/12/22 05:59: PT sleeping, awakens with verbal command. CIWA scale done. Original Note: PT A&Ox3, reports increased weakness, dizziness, productive cough, CP and chills for the past week. IV established, labs drawn and sent to lab. Urinal given. PT resting quietly, no apparent distress.
[2022-04-12 04:14] LABS: Troponin-I High Sensitivity 5.4 ng/L (<3.5-35.0)
[2022-04-12 04:22] LABS: Alanine Aminotransferase 78 U/L (0-40); Albumin Level 4.4 g/dL (3.5-5.0); Alkaline Phosphatase 144 U/L (39-117); Anion Gap 19 (12-20); Aspartate Amino Transferase 208 U/L (5-37); Bilirubin Total 0.7 mg/dL (0.0-1.0); Blood Urea Nitrogen 8 mg/dL (9-16); Calcium 8.8 mg/dL (8.4-10.2); Carbon Dioxide 24 mmol/L (22-29); Chloride 103 mmol/L (96-108); Creatinine Clr Calc Pharmacy 124.3; Estimated Glomerular Filt Rate > 60; Ethanol 439 mg/dL; Glucose Random 112 mg/dL (60-115); Lipase 71 U/L (8-78); Potassium 3.8 mmol/L (3.3-5.1); Sodium 142 mmol/L (135-145); Total Protein 7.8 g/dL (6.5-8.0)
--- NOTE | 2022-04-12 06:10 | PC.NURSE ---
PT o2 sat 88% on RA. NC placed, o2 sat 96% on 2L NC.
--- NOTE | 2022-04-12 07:33 | ECG_ITS ---
Test Reason : Elevated Troponin Blood Pressure : / mmHG Vent. Rate : 076 BPM Atrial Rate : 076 BPM P-R Int : 144 ms QRS Dur : 108 ms QT Int : 392 ms P-R-T Axes : 049 -01 017 degrees QTc Int : 441 ms Normal sinus rhythm Minimal voltage criteria for LVH, may be normal variant ( Emiliano product ) Borderline ECG When compared with ECG of 12-APR-2022 02:10, No significant change was found Referred By: Christi Angeles Electronically Signed By:Josias Hicks
== END 2022-04-12 15:06 | disposition home or self-care (01) ==
PROVIDERS: Emergency Provider Student in an Organized Health Care Education/Training Program; PCP Internal Medicine
DX: F10.120 Alcohol abuse with intoxication, uncomplicated (principal); Y90.8 Blood alcohol level of 240 mg/100 ml or more; R07.89 Other chest pain; K29.70 Gastritis, unspecified, without bleeding; Z20.822 Contact with and (suspected) exposure to COVID-19; Z79.899 Other long term (current) drug therapy
CPT/HCPCS: 36415; 71046; 74018; 80053; 82077; 83690; 84484; 85025; 87502; 87635; 93005; 99285

== ENCOUNTER 2022-04-16 00:22 | Emergency (ER) | payer OTHER, SELFPAY ==
--- NOTE | ~2022-04-16 | XR_ITS ---
EXAMINATION: XR CHEST CLINICAL INFORMATION: Tachypnea COMPARISON: 04/12/2022 TECHNIQUE: Frontal view of the chest was obtained. FINDINGS: The lungs are well expanded. There is no focal consolidation, edema, or effusion. No pneumothorax. The cardiomediastinal silhouette is within normal limits. No acute osseous abnormality. XR/XR chest 1V IMPRESSION: No acute pulmonary disease.
--- NOTE | ~2022-04-16 | CT_ITS ---
EXAMINATION: CT ABDOMEN AND PELVIS WITHOUT CONTRAST CLINICAL INFORMATION: Flank pain. COMPARISON: Radiograph 04/12/2022 TECHNIQUE: Multidetector volumetric imaging was performed from the superior aspect of the liver through the pubic symphysis. Sagittal and coronal reformatted images were obtained on the technologist's workstation. This CT examination was performed using dose optimization techniques as appropriate, variously including the following: *Automated exposure control *Adjustment of mA and/or kV according to patient size (this includes techniques or standardized protocols for targeted exams where dose is matched to indication/reason for exam; i.e. extremities or head) *Use of iterative reconstruction technique DLP: 466 mGy-cm FINDINGS: LUNG BASES: The visualized lung bases are unremarkable. LIVER, GALLBLADDER, AND BILIARY TREE: The liver is normal in size and shape with decreased attenuation. No focal hepatic lesion or biliary ductal dilatation is present. The gallbladder is unremarkable with no evidence of radiopaque gallstones, gallbladder wall thickening, or obvious pericholecystic inflammatory changes. PANCREAS: Unremarkable. SPLEEN: Unremarkable. ADRENAL GLANDS: Unremarkable. KIDNEYS AND URETERS: The kidneys are normal in size, shape, and attenuation. No hydronephrosis, hydroureter, or calculi seen. No perinephric stranding. BLADDER: Unremarkable. GASTROINTESTINAL TRACT: The small and large bowel are unremarkable. The appendix is unremarkable. ABDOMINAL WALL: No significant hernia is appreciated. LYMPH NODES: Normal. VASCULAR: Unremarkable. PELVIC VISCERA: The prostate and seminal vesicles are unremarkable. OSSEOUS STRUCTURES: There is an acute fracture of the lateral aspect of the left 11th rib. Multiple subacute to chronic rib fractures are also noted. CT/CT abdomen pelvis wo IV con IMPRESSION: 1. Acute fracture of the lateral aspect of the left 11th rib. Multiple subacute to chronic rib fractures are also noted. 2. Hepatic steatosis. Fleischner guidelines were followed.
[2022-04-16 00:28] VITALS: BP 132/93; PULSE 87; RESP 17; TEMP 36.4; O2SAT 94
[2022-04-16 00:53] VITALS: BP 132/93; PULSE 75; PULSE 79; RESP 22; TEMP 36.9; O2SAT 97; BMI 24.3
--- NOTE | 2022-04-16 01:07 | ECG_ITS ---
Test Reason : CHIST PAIN Blood Pressure : / mmHG Vent. Rate : 066 BPM Atrial Rate : 066 BPM P-R Int : 154 ms QRS Dur : 104 ms QT Int : 414 ms P-R-T Axes : 034 -08 023 degrees QTc Int : 434 ms Normal sinus rhythm Normal ECG When compared with ECG of 12-APR-2022 09:27, No significant change was found Referred By: Leeanna Ryan Electronically Signed By:Josias Hicks
--- NOTE | 2022-04-16 01:26 | ED.GENADULT ---
HPI - General Adult General Chief complaint: General Medical Stated complaint: RIB PAIN Time Seen by Provider: 04/16/22 01:20 Source: patient Mode of arrival: ambulatory Limitations: no limitations History of Present Illness HPI narrative: Patient comes to the emergency room complaining of left-sided rib pain/flank pain. Initially when patient came in he stated that the pain has been present for about a week, when I spoke to the patient states it has been going on for 2 years. Patient denies nausea vomiting diarrhea or abdominal pain. Patient admits to drinking alcohol daily. Patient is interested in detox. Related Data Previous Rx's Medication Instructions Recorded ibuprofen 600 mg tablet 600 mg PO TID PRN pain #20 tabs 03/17/21 tramadol 50 mg tablet 50 mg PO Q6H PRN pain #15 tabs 04/06/21 colchicine 0.6 mg capsule 0.6 mg PO DAILY #14 caps 12/31/21 Allergies Allergy/AdvReac Type Severity Reaction Status Date / Time No Known Allergies Allergy Verified 05/15/21 12:36 Review of Systems Review of Systems: Constitutional : No Weight loss, No Fever, No Chills, No Night Sweats, No Fatigue, No Malaise ENT/Mouth : No Hearing loss, No Ear Pain, No Nasal Congestion, No Sinus Pain, No Hoarseness, No sore throat, No Rhinorrhea, No Swallowing Difficulty Eyes: No Eye Pain, No Swelling, No Redness, No Foreign Body, No Discharge, No Vision Changes Cardiovascular : No Chest Pain, No SOB, No Dyspnea on Exertion, No Orthopnea, No Edema, No Palpitations Respiratory : No Cough, No Sputum, No Wheezing, No Smoke Exposure, No Dyspnea Gastrointestinal : No Nausea, No Vomiting, No Diarrhea, No Constipation, No abdominal Pain, No Hematochezia, No Melena Genitourinary : no irregular bleeding, No Dysuria, No Urinary Frequency, No Hematuria, No Urinary Incontinence, No Urgency, complaining of left-sided Flank Pain/left rib pain for 2 years, No Urinary Flow Changes, No Hesitancy Musculoskeletal : No joint pain, No Myalgias, No Joint Swelling Skin : No Skin Lesions, No rash Neuro : No Weakness, No Numbness, No Paresthesias, No Loss of Consciousness, No Dizziness, No Headache Psych : No Anxiety/Panic, No Depression, No SI/HI/AH/VH, No Social Issues, Heme/Lymph: No Bruising, No Bleeding,No Lymphadenopathy Endocrine : No Polyuria, No Polydipsia, No Temperature Intolerance [facility] Past Medical History Medical History Alcohol abuse No pertinent past medical history Subdural hematoma Social History Social History Alcohol intake: current Alcohol intake frequency: 3 or more drinks per day Alcohol type: beer Patient Tobacco Use Status: Never used Tobacco Advance Directives: No Advance Directives Information Provided: Yes Current occupational status: unemployed Current occupation: rt hand Physical Exam ED Vital Signs: Vital Signs - 24 hr 04/16/22 00:28 04/16/22 00:53 04/16/22 00:53 Temperature 97.6 F 98.4 F 98.4 F Pulse Rate 87 75 79 Respiratory Rate 17 22 H 22 H Blood Pressure 132/93 H 132/93 H 132/93 H Pulse Oximetry 94 97 97 Oxygen Delivery Method Room Air Room Air Room Air BMI result Body Mass Index 24.3 Const Other: Appearance: Alert. Oriented X3. No acute distress. Well appearing Eyes: Pupils equal, round and reactive to light. ENT: Pharynx normal. Neck: Normal inspection. Neck supple. No lymph nodes noted. No crepitus CVS: Normal heart rate and rhythm. Pulses normal. Normal S1 and S2 Respiratory: No respiratory distress. Breath sounds normal. No Wheezing. No rales Musculoskeletal: Pain to palpation on the left ribs, mild discomfort on the left flank, reproducible Abdomen: Soft and nontender. No rigidity. No distention. Skin: Skin warm and dry. Normal skin color. Normal skin turgor. Extremities: No lower extremity edema. No Lacerations. No Rash Neuro: Oriented X 3. No motor deficit. No sensory deficit. Moving all extremities. No slurred speech. CN 2 through 12 grossly intact Psych: calm, cooperative, normal affect Course Course Course Narrative: Unlikely that patient has any acute pathology such as a kidney stone, patient has been symptoms for 2+ years. Labs and imaging pending. 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 This will likely take place in the morning. LFTs pending, other labs within normal limits, ETOH 311. CT scan shows an acute fracture of the lateral aspect of the 11th rib Physician of sedation started at 02:45 Medical Decision Making Differential Diagnosis Differential Diagnoses: The differential diagnosis associated with the presentation includes (Rib fracture, contusion, costochondritis) Admission/Observation Consideration of admission/observation: Escalation of care including admission/observation considered (Patient is under observation until the morning, care team consult pending or college football coach.) Lab Data MDM Lab Attestation statement: I reviewed the patient's lab results. 04/16/22 01:47 04/16/22 01:47 Labs: Lab Results 04/16/22 04/16/22 04/16/22 Range/Units 01:46 01:46 01:47 WBC 3.0 L (4.8-10.8) X10*3/uL RBC 4.20 L (4.60-5.80) X10*6/uL Hgb 13.2 L (14.0-18.0) g/dl Hct 38.7 L (42.0-52.0) % MCV 92.1 (80.0-98.0) fL MCH 31.4 (27.0-33.0) pg MCHC 34.1 (31.0-36.0) g/dl RDW 13.6 (11.0-16.0) % Plt Count 47 L (160-400) X10*3/uL MPV 11.1 (9.4-12.4) fL Immature Gran % (Auto) 0.3 (0.0-0.4) % Neut % (Auto) 54.7 (45-73) % Lymph % (Auto) 34.0 (20-40) % [place] % (Auto) 9.3 (2-11) % Eos % (Auto) 1.0 (0-4) % Baso % (Auto) 0.7 (0-2) % Lymph # (Auto) 1.0 L (1.2-4.9) X10*3/uL [place] # (Auto) 0.3 (0.1-1.2) X10*3/uL Eos # (Auto) 0.0 (0.0-0.4) X10*3/uL Baso # (Auto) 0.0 (0.0-0.2) X10*3/uL Abs Immat Gran (auto) 0.01 (0.00-0.03) X10*3/uL Absolute Neuts (auto) 1.6 L (2.0-8.3) x10*3/uL Absolute Nucleated RBC 0.000 (0.0-0.012) X10*3/uL Nucleated RBC % (auto) 0.0 (0.0-0.2) /100WBC Sodium (135-145) mmol/L Potassium (3.3-5.1) mmol/L Chloride (96-108) mmol/L Carbon Dioxide (22-29) mmol/L Anion Gap (12-20) BUN (9-16) mg/dL Creatinine (0.5-1.4) mg/dL Estim Creat Clear Calc Estimated GFR Random Glucose (60-115) mg/dL Calcium (8.4-10.2) mg/dL Magnesium (1.6-2.6) mg/dL Total Bilirubin (0.0-1.0) mg/dL Direct Bilirubin (0.0-0.5) mg/dL AST (5-37) U/L ALT (0-40) U/L Alkaline Phosphatase (39-117) U/L Total Protein (6.5-8.0) g/dL Albumin (3.5-5.0) g/dL Lipase (8-78) U/L Urine Color Yellow Urine Appearance Cloudy Urine pH 5.5 (5.0-9.0) Ur Specific [place] 1.010 (1.005-1.025) Urine Protein Trace (Neg-Trace) mg/dL Urine Glucose (UA) Negative (Negative) mg/dL Urine Ketones Negative (Negative) mg/dL Urine Blood Negative (Negative) Urine Nitrite Negative (Negative) Ur Leukocyte Esterase Negative (Negative) Urine Opiates Screen Not Detected (Not Detect) Urine Fentanyl Screen Not Detected (Not Detect) Ur Barbiturates Screen Not Detected (Not Detect) Ur Phencyclidine Scrn Not Detected (Not Detect) Ur Amphetamines Screen Not Detected (Not Detect) U Benzodiazepines Scrn Not Detected (Not Detect) Urine Cocaine Screen Not Detected (Not Detect) U Marijuana (THC) Screen Not Detected (Not Detect) Ethyl Alcohol mg/dL Influenza Type A (PCR) (Negative) Influenza Type B (PCR) (Negative) RSV RNA Qual (PCR) (Negative) SARS-CoV-2 RNA (RT-PCR) (Negative) 04/16/22 04/16/22 04/16/22 Range/Units 01:47 01:47 01:47 WBC (4.8-10.8) X10*3/uL RBC (4.60-5.80) X10*6/uL Hgb (14.0-18.0) g/dl Hct (42.0-52.0) % MCV (80.0-98.0) fL MCH (27.0-33.0) pg MCHC (31.0-36.0) g/dl RDW (11.0-16.0) % Plt Count (160-400) X10*3/uL MPV (9.4-12.4) fL Immature Gran % (Auto) (0.0-0.4) % Neut % (Auto) (45-73) % Lymph % (Auto) (20-40) % [place] % (Auto) (2-11) % Eos % (Auto) (0-4) % Baso % (Auto) (0-2) % Lymph # (Auto) (1.2-4.9) X10*3/uL [place] # (Auto) (0.1-1.2) X10*3/uL Eos # (Auto) (0.0-0.4) X10*3/uL Baso # (Auto) (0.0-0.2) X10*3/uL Abs Immat Gran (auto) (0.00-0.03) X10*3/uL Absolute Neuts (auto) (2.0-8.3) x10*3/uL Absolute Nucleated RBC (0.0-0.012) X10*3/uL Nucleated RBC % (auto) (0.0-0.2) /100WBC Sodium 141 (135-145) mmol/L Potassium 4.1 (3.3-5.1) mmol/L Chloride 103 (96-108) mmol/L Carbon Dioxide 24 (22-29) mmol/L Anion Gap 18 (12-20) BUN 10 (9-16) mg/dL Creatinine 0.70 (0.5-1.4) mg/dL Estim Creat Clear Calc 120.7 Estimated GFR > 60 Random Glucose 100 (60-115) mg/dL Calcium 8.8 (8.4-10.2) mg/dL Magnesium 2.0 (1.6-2.6) mg/dL Total Bilirubin 0.8 (0.0-1.0) mg/dL Direct Bilirubin 0.4 (0.0-0.5) mg/dL AST 226 H (5-37) U/L ALT 94 H (0-40) U/L Alkaline Phosphatase 139 H (39-117) U/L Total Protein 7.6 (6.5-8.0) g/dL Albumin 4.3 (3.5-5.0) g/dL Lipase 51 (8-78) U/L Urine Color Urine Appearance Urine pH (5.0-9.0) Ur Specific [place] (1.005-1.025) Urine Protein (Neg-Trace) mg/dL Urine Glucose (UA) (Negative) mg/dL Urine Ketones (Negative) mg/dL Urine Blood (Negative) Urine Nitrite (Negative) Ur Leukocyte Esterase (Negative) Urine Opiates Screen (Not Detect) Urine Fentanyl Screen (Not Detect) Ur Barbiturates Screen (Not Detect) Ur Phencyclidine Scrn (Not Detect) Ur Amphetamines Screen (Not Detect) U Benzodiazepines Scrn (Not Detect) Urine Cocaine Screen (Not Detect) U Marijuana (THC) Screen (Not Detect) Ethyl Alcohol 311 H* mg/dL Influenza Type A (PCR) NEGATIVE (Negative) Influenza Type B (PCR) NEGATIVE (Negative) RSV RNA Qual (PCR) NEGATIVE (Negative) SARS-CoV-2 RNA (RT-PCR) NEGATIVE (Negative) Independent Interpretation I performed an independent interpretation of an: Plain X-Ray (Chest x-ray my interpretation: Unremarkable) Radiology Impression Discussion of test interpretation with radiology: I have reviewed the radiologist's reading. Radiologist Impression: FINDINGS: LUNG BASES: The visualized lung bases are unremarkable.? LIVER, GALLBLADDER, AND BILIARY TREE: The liver is normal in size and shape with decreased attenuation. No focal hepatic lesion or biliary ductal dilatation is present. The gallbladder is unremarkable with no evidence of radiopaque gallstones, gallbladder wall thickening, or obvious pericholecystic inflammatory changes.? PANCREAS: Unremarkable.? SPLEEN: Unremarkable.? ADRENAL GLANDS: Unremarkable.? KIDNEYS AND URETERS: The kidneys are normal in size, shape, and attenuation. No hydronephrosis, hydroureter, or calculi seen. No perinephric stranding. ? BLADDER: Unremarkable.? GASTROINTESTINAL TRACT: The small and large bowel are unremarkable. The appendix is unremarkable.? ABDOMINAL WALL: No significant hernia is appreciated.? LYMPH NODES: Normal. VASCULAR: Unremarkable. PELVIC VISCERA: The prostate and seminal vesicles are unremarkable.? OSSEOUS STRUCTURES: There is an acute fracture of the lateral aspect of the left 11th rib. Multiple subacute to chronic rib fractures are also noted.? CT/CT abdomen pelvis wo IV con IMPRESSION: 1.? Acute fracture of the lateral aspect of the left 11th rib. Multiple subacute to chronic rib fractures are also noted. 2.? Hepatic steatosis. ? Fleischner guidelines were followed. Chest x-ray: FINDINGS: The lungs are well expanded. There is no focal consolidation, edema, or effusion. No pneumothorax. The cardiomediastinal silhouette is within normal limits. No acute osseous abnormality. XR/XR chest 1V IMPRESSION: No acute pulmonary disease. ? Discharge Plan Discharge Clinical Impression: Chronic left flank pain, Alcohol abuse, Left rib fracture Patient Disposition: Still a Patient Prescriptions: No Action ibuprofen 600 mg tablet 600 mg PO TID PRN (Reason: pain) Qty: 20 0RF tramadol 50 mg tablet 50 mg PO Q6H PRN (Reason: pain) Qty: 15 0RF colchicine 0.6 mg capsule 0.6 mg PO DAILY Qty: 14 0RF
[2022-04-16 01:55] LABS: Appearance Urine Cloudy; Color Urine Yellow; Glucose Urine UA Negative (Negative); Leukocyte Esterase Urine Negative (Negative); Nitrite Urine Negative (Negative); PH 5.5 (5.0-9.0); Urine Blood Negative (Negative); Urine Ketones Negative (Negative); Urine Protein Trace mg/dL (Neg-Trace)
[2022-04-16 02:13] LABS: MANUAL DIFF FLAG NO
[2022-04-16 02:15] LABS: Basophils Percent Auto 0.7 % (0-2); Hematocrit 38.7 % (42.0-52.0); Hemoglobin 13.2 g/dl (14.0-18.0); Imm Gran Abs Auto 0.01 X10*3/uL (0.00-0.03); Imm Gran Pct Auto 0.3 % (0.0-0.4); Mean Corpuscular HGB Conc 34.1 g/dl (31.0-36.0); Mean Corpuscular Hemoglobin 31.4 pg (27.0-33.0); Mean Corpuscular Volume 92.1 fL (80.0-98.0); Mean Platelet Volume 11.1 fL (9.4-12.4); Monocytes Absolute Auto 0.3 X10*3/uL (0.1-1.2); Monocytes Percent Auto 9.3 % (2-11); Neutrophils Absolute Auto 1.6 x10*3/uL (2.0-8.3); Neutrophils Percent Auto 54.7 % (45-73); Red Cell Distribution Width 13.6 % (11.0-16.0)
[2022-04-16 02:16] LABS: Platelet Count 47 X10*3/uL (160-400)
[2022-04-16 02:18] LABS: Amphetamine Screen Urine Not Detected (Not Detect); Barbiturates, Urine Not Detected (Not Detect); Benzodiazepines Screen Urine Not Detected (Not Detect); Cannabinoid Screen Urine Not Detected (Not Detect); Cocaine Screen Urine Not Detected (Not Detect); Fentanyl, urine Not Detected (Not Detect); Opiate Screen Urine Not Detected (Not Detect); Phencyclidine Screen Urine Not Detected (Not Detect)
[2022-04-16 02:30] LABS: Influenza A PCR NEGATIVE (Negative); Influenza B PCR NEGATIVE (Negative); Resp Syncy Virus RNA Qual PCR NEGATIVE (Negative); SARS COV2 PCR INHOUSE NEGATIVE (Negative)
[2022-04-16 02:40] LABS: Ethanol 311 mg/dL
[2022-04-16 02:42] LABS: Alanine Aminotransferase 94 U/L (0-40); Albumin Level 4.3 g/dL (3.5-5.0); Alkaline Phosphatase 139 U/L (39-117); Anion Gap 18 (12-20); Aspartate Amino Transferase 226 U/L (5-37); Bilirubin Direct 0.4 mg/dL (0.0-0.5); Bilirubin Total 0.8 mg/dL (0.0-1.0); Blood Urea Nitrogen 10 mg/dL (9-16); Calcium 8.8 mg/dL (8.4-10.2); Carbon Dioxide 24 mmol/L (22-29); Chloride 103 mmol/L (96-108); Creatinine Clr Calc Pharmacy 120.7; Estimated Glomerular Filt Rate > 60; Glucose Random 100 mg/dL (60-115); Lipase 51 U/L (8-78); Potassium 4.1 mmol/L (3.3-5.1); Sodium 141 mmol/L (135-145); Total Protein 7.6 g/dL (6.5-8.0)
[2022-04-16 02:50] LABS: Troponin-I High Sensitivity 4.5 ng/L (<3.5-35.0)
[2022-04-16 04:07] VITALS: BP 122/89; PULSE 84; RESP 18; TEMP 36.2; O2SAT 97
--- NOTE | 2022-04-16 04:16 | PC.NURSE ---
Patient is alert and oriented to self and place. Complains of headache, vitals are WNL. CIWA Assessment completed. Safety monitored.
[2022-04-16 05:59] VITALS: BP 130/88; PULSE 81; RESP 16; O2SAT 96
--- NOTE | 2022-04-16 07:29 | PC.NURSE ---
Patient sleeping is easily aroused, reports last drink was yesterday no respiratory distress noted. Patient Aox 4 calm no agitation noted. Reports last drik was yesterday will CTM
[2022-04-16] MEDS: chlordiazePOXIDE HCl 5 MG CAPSULE 10 MG PO (07:48)
--- NOTE | 2022-04-16 08:47 | MHC.RECOVRN ---
Met with pt in ED18 to discuss substance use and desire for ATS. Pt sitting in bed, awake, alert, engaged in conversation. Pt reporting drinking alcohol, approx 7 beers daily x 8 months. Denies other substances. Pt reports hx ATS admissions, last about 2 years ago. Pt is open to any ATS location. [facility] has availability, pt to complete phone intake.
--- NOTE | 2022-04-16 10:27 | MHC.RECOVRN ---
Pt accepted to [facility] ATS for 12PM admission. Will be transported via [employer].
[2022-04-16 10:34] VITALS: BP 130/88; PULSE 65; RESP 18; TEMP 37; O2SAT 98
== END 2022-04-16 10:41 | disposition home or self-care (01) ==
PROVIDERS: Nurse Practitioner Family; Emergency Provider Emergency Medicine; PCP Internal Medicine
DX: S22.32XA Fracture of one rib, left side, initial encounter for closed fracture (principal); R07.81 Pleurodynia; R07.89 Other chest pain; F10.10 Alcohol abuse, uncomplicated; Y90.9 Presence of alcohol in blood, level not specified; X58.XXXA Exposure to other specified factors, initial encounter; Y93.9 Activity, unspecified; Y92.9 Unspecified place or not applicable; Y99.9 Unspecified external cause status; Z20.822 Contact with and (suspected) exposure to COVID-19; Z20.828 Contact with and (suspected) exposure to other viral communicable diseases
CPT/HCPCS: 0241U; 36415; 71045; 74176; 80048; 80076; 80307; 81003; 82077; 83690; 83735; 84484; 85025; 93005; 99285

== ENCOUNTER 2022-06-27 18:33 | Emergency (ER) | payer OTHER, SELFPAY ==
[2022-06-27 18:41] VITALS: BP 138/93; PULSE 88; O2SAT 99
[2022-06-27 20:11] VITALS: BP 127/67; PULSE 86; RESP 18; TEMP 36.6; O2SAT 96; BMI 25.0
--- NOTE | 2022-06-27 20:14 | ED.HA ---
HPI - Headache General Chief Complaint: Head Injury Stated Complaint: ABD pain Related Data Previous Rx's Medication Instructions Recorded ibuprofen 600 mg tablet 600 mg PO TID PRN pain #20 tabs 03/17/21 tramadol 50 mg tablet 50 mg PO Q6H PRN pain #15 tabs 04/06/21 colchicine 0.6 mg capsule 0.6 mg PO DAILY #14 caps 12/31/21 Allergies Allergy/AdvReac Type Severity Reaction Status Date / Time No Known Allergies Allergy Verified 05/15/21 12:36 [facility] Past Medical History Medical History Alcohol abuse No pertinent past medical history Subdural hematoma Social History Social History Alcohol intake: current Alcohol intake frequency: 3 or more drinks per day Alcohol type: beer Patient Tobacco Use Status: Never used Tobacco Smoked in Last 30 Days: No Use of substances other than those prescribed or required for medical reasons: No Advance Directives: No Advance Directives Information Provided: No Current occupational status: unemployed Current occupation: rt hand Physical Exam Vital Signs: Vital Signs: Last Vital Signs Temp 97.8 F 06/27/22 20:11 Pulse 86 06/27/22 20:11 Resp 18 06/27/22 20:11 BP 127/67 06/27/22 20:11 Pulse Ox 96 06/27/22 20:11 O2 Del Method Room Air 06/27/22 20:11 BMI result Body Mass Index 25.0 Course Course Course Narrative: RME--52-year-old male with a past medical history of ETOH abuse, subdural hematoma, presenting to the ED complaining of acute on chronic headache since intracranial surgery months ago. Denies any change in symptoms, admits to intermittent nausea/vomiting. Denies weakness. Admits to drinking a few beers today. Is not currently interested in detox. +ETOH odor on breath, ambulating with steady gait, A&Ox3 Patient will be placed back in waiting room until full eval by ED provider Discharge Plan Discharge Clinical Impression: Abdominal pain Patient Disposition: Elopement Prescriptions: No Action ibuprofen 600 mg tablet 600 mg PO TID PRN (Reason: pain) Qty: 20 0RF tramadol 50 mg tablet 50 mg PO Q6H PRN (Reason: pain) Qty: 15 0RF colchicine 0.6 mg capsule 0.6 mg PO DAILY Qty: 14 0RF Interventions: ED Discharge Assessment Last Done: 06/28/22 00:00 Discharge Date/Time: 06/28/22 00:03
== END 2022-06-28 00:03 | disposition left against medical advice (07) ==
LOC: HO.ED 06-28 00:02
PROVIDERS: Emergency Provider Emergency Medicine
DX: R51.9 Headache, unspecified (principal); F10.10 Alcohol abuse, uncomplicated; Y90.9 Presence of alcohol in blood, level not specified; Z79.899 Other long term (current) drug therapy
CPT/HCPCS: 99282

== ENCOUNTER 2022-07-02 20:19 | Emergency (ER) | payer OTHER, SELFPAY ==
--- NOTE | ~2022-07-02 | CT_ITS ---
EXAMINATION: CT ABDOMEN AND PELVIS WITH CONTRAST CLINICAL INFORMATION: Left midabdomen pain. COMPARISON: CT scan abdomen pelvis 04/16/2022 TECHNIQUE: Multidetector volumetric images were obtained from the superior aspect of the liver through the pubic symphysis following administration 85 mL of Omnipaque 350 intravenous contrast. Sagittal and coronal reformatted images were obtained on the technologist's workstation. Oral contrast: No This CT examination was performed using dose optimization techniques as appropriate, variously including the following: *Automated exposure control *Adjustment of mA and/or kV according to patient size (this includes techniques or standardized protocols for targeted exams where dose is matched to indication/reason for exam; i.e. extremities or head) *Use of iterative reconstruction technique DLP: 444 mGy-cm FINDINGS: LUNG BASES: The visualized lung bases are unremarkable. LIVER, GALLBLADDER, AND BILIARY TREE: The liver is normal in size, shape, and attenuation. No focal hepatic lesion or biliary ductal dilatation is present. The gallbladder is unremarkable with no evidence of radiopaque gallstones, gallbladder wall thickening, or obvious pericholecystic inflammatory changes. PANCREAS: Unremarkable. SPLEEN: Unremarkable. ADRENAL GLANDS: Unremarkable. KIDNEYS AND URETERS: The kidneys are normal in size, shape, and attenuation. No hydronephrosis, hydroureter, or calculi seen. No perinephric stranding. BLADDER: Unremarkable. GASTROINTESTINAL TRACT: The small and large bowel are unremarkable. The appendix is unremarkable. ABDOMINAL WALL: No significant hernia is appreciated. LYMPH NODES: Normal. VASCULAR: Unremarkable. PELVIC VISCERA: Unremarkable. OSSEOUS STRUCTURES: Unremarkable. CT/CT abdomen pelvis w IV con IMPRESSION: No significant abnormality. Fleischner guidelines were followed.
[2022-07-02 20:35] VITALS: BP 115/78; BP 120/80; PULSE 84; PULSE 90; RESP 13; TEMP 36.6; O2SAT 97; O2SAT 99; BMI 19.0
[2022-07-02 20:40] VITALS: BP 120/80; PULSE 90; RESP 13; TEMP 36.6; O2SAT 94
[2022-07-02 21:10] LABS: Basophils Percent Auto 0.7 % (0-2); Eosinophils Absolute Auto 0.1 X10*3/uL (0.0-0.4); Hematocrit 41.5 % (42.0-52.0); Lymphocytes Absolute Auto 2.2 X10*3/uL (1.2-4.9); Lymphocytes Percent Auto 49.8 % (20-40); MANUAL DIFF FLAG NO; Mean Corpuscular HGB Conc 33.7 g/dl (31.0-36.0); Mean Corpuscular Hemoglobin 31.4 pg (27.0-33.0); Mean Platelet Volume 9.8 fL (9.4-12.4); Monocytes Absolute Auto 0.2 X10*3/uL (0.1-1.2); Neutrophils Absolute Auto 1.9 x10*3/uL (2.0-8.3); Neutrophils Percent Auto 42.5 % (45-73); Platelet Count 142 X10*3/uL (160-400); Red Blood Count 4.46 X10*6/uL (4.60-5.80); Red Cell Distribution Width 13.5 % (11.0-16.0); White Blood Count 4.4 X10*3/uL (4.8-10.8)
[2022-07-02] MEDS: ondansetron HCL 4 MG/2 ML VIAL IVPUSH (21:18)
--- NOTE | 2022-07-02 21:27 | PC.NURSE ---
Addendum entered by Jeniffer Fitzgeraldnacion 07/02/22 21:34: Error- meant for another patient Original Note: Nurse to Nurse report given to Anju aviles RN. Patient to be transported to [place] [id number] by [facility]
[2022-07-02 21:46] LABS: Anion Gap 18 (12-20)
[2022-07-02 21:51] LABS: Alanine Aminotransferase 17 U/L (0-40); Alkaline Phosphatase 94 U/L (39-117); Aspartate Amino Transferase 27 U/L (5-37); Bilirubin Total 0.3 mg/dL (0.0-1.0); Blood Urea Nitrogen 10 mg/dL (9-16); Calcium 8.4 mg/dL (8.4-10.2); Carbon Dioxide 24 mmol/L (22-29); Chloride 106 mmol/L (96-108); Creatinine Clr Calc Pharmacy 96.2; Estimated Glomerular Filt Rate > 60; Glucose Random 115 mg/dL (60-115); Lipase 58 U/L (8-78); Potassium 3.7 mmol/L (3.3-5.1); Sodium 144 mmol/L (135-145)
[2022-07-02] MEDS: iohexoL 350 MG/ML 100 ML INFUS..BTL IV (22:04)
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
[2022-07-02 22:38] LABS: Ethanol 394 mg/dL
== END 2022-07-02 23:25 | disposition home or self-care (01) ==
PROVIDERS: Emergency Provider Emergency Medicine; PCP Internal Medicine
DX: R10.9 Unspecified abdominal pain (principal); Z79.899 Other long term (current) drug therapy
CPT/HCPCS: 36415; 74177; 80053; 82077; 83690; 85025; 96374; 99284; J2405; Q9967

== ENCOUNTER 2022-08-03 20:49 | Emergency (ER) | payer OTHER, SELFPAY ==
--- NOTE | ~2022-08-03 | XR_ITS ---
EXAMINATION: XR RIBS, LEFT CLINICAL INFORMATION: Chest pain for years. Worsening last 3 months COMPARISON: None available. TECHNIQUE: 3 views of the left ribs were obtained. Chest PA 1 view FINDINGS: CHEST: The lungs are well-expanded and clear. Heart size and progress clarities normal. There are multiple healed fractures left ribs. No acute fracture or bony abnormality seen. Multiple old left rib fractures. LEFT RIBS: Multiple views of left ribs reveal old fractures involving left lateral sixth, ninth, 10th and 12th ribs. No acute fracture visualized XR/XR ribs LT min 3V w CXR1V IMPRESSION: 1. Unremarkable chest exam. 2. Multiple healed left rib fractures. No acute rib fractures seen. There is no pneumothorax or pleural effusion.
[2022-08-03 21:01] VITALS: BP 128/93; BP 136/81; PULSE 75; PULSE 78; RESP 18; TEMP 36.6; O2SAT 97; BMI 25.8
[2022-08-04 00:27] VITALS: BP 136/92; PULSE 79; RESP 17; TEMP 36.6; O2SAT 97
[2022-08-04 00:30] LABS: MANUAL DIFF FLAG NO
[2022-08-04 00:32] LABS: Basophils Percent Auto 0.8 % (0-2); Eosinophils Absolute Auto 0.1 X10*3/uL (0.0-0.4); Eosinophils Percent Auto 1.6 % (0-4); Hematocrit 39.3 % (42.0-52.0); Hemoglobin 13.6 g/dl (14.0-18.0); Imm Gran Abs Auto 0.01 X10*3/uL (0.00-0.03); Imm Gran Pct Auto 0.2 % (0.0-0.4); Lymphocytes Absolute Auto 1.9 X10*3/uL (1.2-4.9); Lymphocytes Percent Auto 38.7 % (20-40); Mean Corpuscular HGB Conc 34.6 g/dl (31.0-36.0); Mean Corpuscular Hemoglobin 32.1 pg (27.0-33.0); Mean Corpuscular Volume 92.7 fL (80.0-98.0); Mean Platelet Volume 9.5 fL (9.4-12.4); Monocytes Absolute Auto 0.5 X10*3/uL (0.1-1.2); Monocytes Percent Auto 10.2 % (2-11); Neutrophils Absolute Auto 2.4 x10*3/uL (2.0-8.3); Neutrophils Percent Auto 48.5 % (45-73); Platelet Count 70 X10*3/uL (160-400); Red Blood Count 4.24 X10*6/uL (4.60-5.80); Red Cell Distribution Width 13.8 % (11.0-16.0)
[2022-08-04 00:33] LABS: Appearance Urine Clear; Color Urine Yellow; Glucose Urine UA Negative (Negative); Leukocyte Esterase Urine Trace (Negative); Nitrite Urine Negative (Negative); UMIC TRIGGER UACC YES; Urine Blood Negative (Negative); Urine Ketones Negative (Negative); Urine Protein Negative (Neg-Trace)
[2022-08-04 00:38] LABS: Bacteria Urine None Seen (None Seen); Hyaline Casts Urine 0-2 /LPF (0-2); RBC Urine 0-2 /HPF (0-2); Squamous Epithelial Cell Urine 0-2 /HPF (0-2); WBC Urine 0-5 /HPF (0-5)
[2022-08-04 00:44] LABS: Amphetamine Screen Urine Not Detected (Not Detect); Barbiturates, Urine Not Detected (Not Detect); Benzodiazepines Screen Urine Not Detected (Not Detect); Cannabinoid Screen Urine Not Detected (Not Detect); Cocaine Screen Urine Not Detected (Not Detect); Fentanyl, urine Not Detected (Not Detect); Opiate Screen Urine Not Detected (Not Detect); Phencyclidine Screen Urine Not Detected (Not Detect)
[2022-08-04 00:49] LABS: Alanine Aminotransferase 40 U/L (0-40); Albumin Level 4.7 g/dL (3.5-5.0); Alkaline Phosphatase 115 U/L (39-117); Anion Gap 13 (12-20); Aspartate Amino Transferase 84 U/L (5-37); Bilirubin Direct 0.2 mg/dL (0.0-0.5); Bilirubin Total 0.5 mg/dL (0.0-1.0); Blood Urea Nitrogen 9 mg/dL (9-16); Calcium 9.3 mg/dL (8.4-10.2); Carbon Dioxide 30 mmol/L (22-29); Chloride 103 mmol/L (96-108); Creatinine Clr Calc Pharmacy 122.9; Estimated Glomerular Filt Rate > 60; Glucose Random 109 mg/dL (60-115); Lipase 53 U/L (8-78); Sodium 142 mmol/L (135-145); Total Protein 8.2 g/dL (6.5-8.0)
[2022-08-04 01:10] LABS: Ethanol 345 mg/dL
--- NOTE | 2022-08-04 02:06 | ED_ITS ---
HPI - Abdominal Pain General Chief Complaint: Abdominal Pain Stated Complaint: r sided flank pain Time Seen by Provider: 08/04/22 00:28 Source: patient Mode of arrival: EMS History of Present Illness HPI narrative: 52-year-old male with history of alcohol use disorder and arrives via EMS with complaints right flank pain for 2 weeks but denies any fever, chills, nausea, vomiting and states he has been evaluated [facility] for similar complaints. Patient states he has been drinking this evening. Related Data Previous Rx's Medication Instructions Recorded ibuprofen 600 mg tablet 600 mg PO TID PRN pain #20 tabs 03/17/21 tramadol 50 mg tablet 50 mg PO Q6H PRN pain #15 tabs 04/06/21 colchicine 0.6 mg capsule 0.6 mg PO DAILY #14 caps 12/31/21 Allergies Allergy/AdvReac Type Severity Reaction Status Date / Time No Known Allergies Allergy Verified 05/15/21 12:36 Review of Systems Review of Systems Pertinent positives and negatives as stated in HPI PMFSH Past Medical History Source: nursing notes reviewed Medical History Alcohol abuse No pertinent past medical history Subdural hematoma Social History Social History Alcohol intake: current Alcohol intake frequency: 3 or more drinks per day Alcohol type: beer Patient Tobacco Use Status: Never used Tobacco Advance Directives: No Current occupational status: unemployed Current occupation: rt hand Physical Exam ED Vital Signs: Vital Signs - 24 hr 08/03/22 21:01 08/04/22 00:27 Temperature 97.8 F 97.9 F Pulse Rate 75 79 Respiratory Rate 18 17 Blood Pressure 128/93 H 136/92 H Pulse Oximetry 97 97 Oxygen Delivery Method Room Air Room Air BMI result Body Mass Index 25.8 VITAL SIGNS: Reviewed. GENERAL: Well developed, well nourished, in no acute distress. HEAD: Normocephalic/atraumatic EYES: PERRLA, EOMI EARS: Ext canals without abnormality LUNGS: Normal breath sounds. No adventitious sounds or accessory muscle use. SpO2<97> CARDIOVASCULAR: Regular rate and rhythm without noted murmurs ABDOMEN: Soft, non-tender, non-distended with bowel sounds. MUSCULOSKELETAL: No tenderness, deformities, or effusions noted on gross inspection. EXTREMITIES: No cyanosis, clubbing or edema. SKIN: Inspection of the skin reveals no rashes NEUROLOGIC: Alert and oriented x 3. Strength and sensation to light touch were grossly intact x 4. Medical Decision Making Medical Decision Making MDM Narrative: 52-year-old male with history and clinical presentation most consistent with alcohol intoxication the possibility of pancreatitis or alcoholic gastritis. I reviewed all investigations and my interpretation is that this patient is suffering from alcohol intoxication and possibly alcohol gastritis. He is otherwise hemodynamically stable and will be observed and likely discharge in the morning unless he communicates whether not he wishes to pursue detox. Differential Diagnosis Please see the discussion above Lab Data Please see the discussion above 08/04/22 00:24 08/04/22 00:24 Labs: Lab Results 08/04/22 08/04/22 08/04/22 Range/Units 00:24 00:24 00:25 WBC 5.0 (4.8-10.8) X10*3/uL RBC 4.24 L (4.60-5.80) X10*6/uL Hgb 13.6 L (14.0-18.0) g/dl Hct 39.3 L (42.0-52.0) % MCV 92.7 (80.0-98.0) fL MCH 32.1 (27.0-33.0) pg MCHC 34.6 (31.0-36.0) g/dl RDW 13.8 (11.0-16.0) % Plt Count 70 L D (160-400) X10*3/uL MPV 9.5 (9.4-12.4) fL Immature Gran % (Auto) 0.2 (0.0-0.4) % Neut % (Auto) 48.5 (45-73) % Lymph % (Auto) 38.7 (20-40) % [place] % (Auto) 10.2 (2-11) % Eos % (Auto) 1.6 (0-4) % Baso % (Auto) 0.8 (0-2) % Lymph # (Auto) 1.9 (1.2-4.9) X10*3/uL [place] # (Auto) 0.5 (0.1-1.2) X10*3/uL Eos # (Auto) 0.1 (0.0-0.4) X10*3/uL Baso # (Auto) 0.0 (0.0-0.2) X10*3/uL Abs Immat Gran (auto) 0.01 (0.00-0.03) X10*3/uL Absolute Neuts (auto) 2.4 (2.0-8.3) x10*3/uL Absolute Nucleated RBC 0.000 (0.0-0.012) X10*3/uL Nucleated RBC % (auto) 0.0 (0.0-0.2) /100WBC Sodium 142 (135-145) mmol/L Potassium 4.0 (3.3-5.1) mmol/L Chloride 103 (96-108) mmol/L Carbon Dioxide 30 H (22-29) mmol/L Anion Gap 13 (12-20) BUN 9 (9-16) mg/dL Creatinine 0.68 (0.5-1.4) mg/dL Estim Creat Clear Calc 122.9 Estimated GFR > 60 Random Glucose 109 (60-115) mg/dL Calcium 9.3 D (8.4-10.2) mg/dL Total Bilirubin 0.5 (0.0-1.0) mg/dL Direct Bilirubin 0.2 (0.0-0.5) mg/dL AST 84 H (5-37) U/L ALT 40 (0-40) U/L Alkaline Phosphatase 115 (39-117) U/L Total Protein 8.2 H (6.5-8.0) g/dL Albumin 4.7 (3.5-5.0) g/dL Lipase 53 (8-78) U/L Urine Color Yellow Urine Appearance Clear Urine pH 6.0 (5.0-9.0) Ur Specific [place] 1.010 (1.005-1.025) Urine Protein Negative (Neg-Trace) mg/dL Urine Glucose (UA) Negative (Negative) mg/dL Urine Ketones Negative (Negative) mg/dL Urine Blood Negative (Negative) Urine Nitrite Negative (Negative) Ur Leukocyte Esterase Trace H (Negative) Urine RBC 0-2 (0-2) /HPF Urine WBC 0-5 (0-5) /HPF Ur Squamous Epith Cells 0-2 (0-2) /HPF Urine Bacteria None Seen (None Seen) Hyaline Casts 0-2 (0-2) /LPF Urine Opiates Screen (Not Detect) Urine Fentanyl Screen (Not Detect) Ur Barbiturates Screen (Not Detect) Ur Phencyclidine Scrn (Not Detect) Ur Amphetamines Screen (Not Detect) U Benzodiazepines Scrn (Not Detect) Urine Cocaine Screen (Not Detect) U Marijuana (THC) Screen (Not Detect) Ethyl Alcohol 345 H* mg/dL 08/04/22 Range/Units 00:25 WBC (4.8-10.8) X10*3/uL RBC (4.60-5.80) X10*6/uL Hgb (14.0-18.0) g/dl Hct (42.0-52.0) % MCV (80.0-98.0) fL MCH (27.0-33.0) pg MCHC (31.0-36.0) g/dl RDW (11.0-16.0) % Plt Count (160-400) X10*3/uL MPV (9.4-12.4) fL Immature Gran % (Auto) (0.0-0.4) % Neut % (Auto) (45-73) % Lymph % (Auto) (20-40) % [place] % (Auto) (2-11) % Eos % (Auto) (0-4) % Baso % (Auto) (0-2) % Lymph # (Auto) (1.2-4.9) X10*3/uL [place] # (Auto) (0.1-1.2) X10*3/uL Eos # (Auto) (0.0-0.4) X10*3/uL Baso # (Auto) (0.0-0.2) X10*3/uL Abs Immat Gran (auto) (0.00-0.03) X10*3/uL Absolute Neuts (auto) (2.0-8.3) x10*3/uL Absolute Nucleated RBC (0.0-0.012) X10*3/uL Nucleated RBC % (auto) (0.0-0.2) /100WBC Sodium (135-145) mmol/L Potassium (3.3-5.1) mmol/L Chloride (96-108) mmol/L Carbon Dioxide (22-29) mmol/L Anion Gap (12-20) BUN (9-16) mg/dL Creatinine (0.5-1.4) mg/dL Estim Creat Clear Calc Estimated GFR Random Glucose (60-115) mg/dL Calcium (8.4-10.2) mg/dL Total Bilirubin (0.0-1.0) mg/dL Direct Bilirubin (0.0-0.5) mg/dL AST (5-37) U/L ALT (0-40) U/L Alkaline Phosphatase (39-117) U/L Total Protein (6.5-8.0) g/dL Albumin (3.5-5.0) g/dL Lipase (8-78) U/L Urine Color Urine Appearance Urine pH (5.0-9.0) Ur Specific [place] (1.005-1.025) Urine Protein (Neg-Trace) mg/dL Urine Glucose (UA) (Negative) mg/dL Urine Ketones (Negative) mg/dL Urine Blood (Negative) Urine Nitrite (Negative) Ur Leukocyte Esterase (Negative) Urine RBC (0-2) /HPF Urine WBC (0-5) /HPF Ur Squamous Epith Cells (0-2) /HPF Urine Bacteria (None Seen) Hyaline Casts (0-2) /LPF Urine Opiates Screen Not Detected (Not Detect) Urine Fentanyl Screen Not Detected (Not Detect) Ur Barbiturates Screen Not Detected (Not Detect) Ur Phencyclidine Scrn Not Detected (Not Detect) Ur Amphetamines Screen Not Detected (Not Detect) U Benzodiazepines Scrn Not Detected (Not Detect) Urine Cocaine Screen Not Detected (Not Detect) U Marijuana (THC) Screen Not Detected (Not Detect) Ethyl Alcohol mg/dL External Record Review External record reviewed: Outpatient record and Prior outpatient labs Discharge Plan Discharge Clinical Impression: Alcohol intoxication, Alcohol use disorder Patient Disposition: Still a Patient Prescriptions: No Action ibuprofen 600 mg tablet 600 mg PO TID PRN (Reason: pain) Qty: 20 0RF tramadol 50 mg tablet 50 mg PO Q6H PRN (Reason: pain) Qty: 15 0RF colchicine 0.6 mg capsule 0.6 mg PO DAILY Qty: 14 0RF
[2022-08-04 02:56] VITALS: RESP 17
[2022-08-04 06:24] VITALS: BP 104/69; PULSE 80; RESP 17; TEMP 36.8; O2SAT 94
[2022-08-04 06:38] VITALS: BP 104/69; PULSE 85; RESP 18; TEMP 36.8; O2SAT 94
[2022-08-04 07:40] VITALS: BP 120/66; PULSE 89; RESP 18; TEMP 36.8; O2SAT 95
== END 2022-08-04 08:14 | disposition home or self-care (01) ==
PROVIDERS: Emergency Provider Student in an Organized Health Care Education/Training Program
DX: F10.129 Alcohol abuse with intoxication, unspecified (principal); Y90.8 Blood alcohol level of 240 mg/100 ml or more; R07.81 Pleurodynia; Z79.899 Other long term (current) drug therapy
CPT/HCPCS: 36415; 71101; 80053; 80307; 81001; 82077; 82248; 83690; 85025; 99284

== ENCOUNTER 2022-08-04 22:13 | Emergency (ER) | payer OTHER, SELFPAY ==
[2022-08-04 22:23] VITALS: BP 138/88; PULSE 94; O2SAT 96
[2022-08-04 22:43] VITALS: BP 115/75; PULSE 99; RESP 18; TEMP 36.3; O2SAT 96; BMI 26.7
[2022-08-05 03:38] VITALS: BP 125/80; PULSE 90; RESP 16; TEMP 36.8; O2SAT 93
--- NOTE | 2022-08-05 03:39 | MHC.EDTECH ---
THIS PCT ASSUMED CARE OF PT ,VITAL SIGN TAKEN ,NURSE AT BED SIDE .
--- NOTE | 2022-08-05 03:40 | ED_ITS ---
HPI - Abdominal Pain General Chief Complaint: Abdominal Pain Stated Complaint: l upper quadrant pain ETOH Time Seen by Provider: 08/05/22 03:40 Source: patient Mode of arrival: ambulatory Limitations: no limitations History of Present Illness HPI narrative: Patient lesley with remote left lower rib fractures with chronic pain been here multiple times was seen here yesterday for same comes here by EMS for ongoing pain in the lower left lower ribs no shortness of breath no abdominal pain no nausea no vomiting patient had x-ray done yesterday which showed healed fractures labs were stable no recent falls Related Data Previous Rx's Medication Instructions Recorded ibuprofen 600 mg tablet 600 mg PO TID PRN pain #20 tabs 03/17/21 tramadol 50 mg tablet 50 mg PO Q6H PRN pain #15 tabs 04/06/21 colchicine 0.6 mg capsule 0.6 mg PO DAILY #14 caps 12/31/21 tramadol 50 mg tablet 50 mg PO Q6H PRN pain #20 tabs 08/05/22 Allergies Allergy/AdvReac Type Severity Reaction Status Date / Time No Known Allergies Allergy Verified 08/04/22 22:43 Review of Systems Review of Systems Yes all other systems are reviewed and are negative [facility] Past Medical History Medical History Alcohol abuse No pertinent past medical history Subdural hematoma Social History Social History Alcohol intake: current Alcohol intake frequency: 3 or more drinks per day Alcohol type: beer Patient Tobacco Use Status: Never used Tobacco Current occupational status: unemployed Current occupation: rt hand Physical Exam ED Vital Signs: Vital Signs - 24 hr 08/04/22 22:43 08/05/22 03:38 Temperature 97.4 F 98.2 F Pulse Rate 99 90 Respiratory Rate 18 16 Blood Pressure 115/75 125/80 Pulse Oximetry 96 93 Oxygen Delivery Method Room Air Room Air BMI result Body Mass Index 26.7 Appearance: Alert. Oriented X3. No acute distress. etoh+ Eyes: PERRLA, No Nystagmus ENT: Pharynx normal. Oral Mucosa moist Neck: Normal inspection. Neck supple. CVS: Normal heart rate and rhythm. Pulses normal. Respiratory: No respiratory distress. Equal air entry bilateral, no wheezing/rales/rhonch mild tenderness left lower rib Abdomen: Soft and nontender. Bowel sounds are present, no mass palpable, no CVA tenderness Skin: Skin warm and dry. Normal skin color. Normal skin turgor. Extremities: No lower extremity edema. No calf tenderness Neuro: Oriented X 3. No motor deficit. Medical Decision Making Medical Decision Making [facility] Narrative: Patient with heel left lower rib fractures with chronic pain will give tramadol for pain advised to stop drinking Discharge Plan Discharge Clinical Impression: Closed rib fracture, Chronic pain Patient Disposition: Home, Self-Care Instructions: Rib Fracture (ED), Chronic Pain (ED) Additional Instructions: Stop drinking alcohol Tramadol for pain Follow-up with PCP Prescriptions: New tramadol 50 mg tablet 50 mg PO Q6H PRN (Reason: pain) Qty: 20 0RF No Action ibuprofen 600 mg tablet 600 mg PO TID PRN (Reason: pain) Qty: 20 0RF tramadol 50 mg tablet 50 mg PO Q6H PRN (Reason: pain) Qty: 15 0RF colchicine 0.6 mg capsule 0.6 mg PO DAILY Qty: 14 0RF
[2022-08-05] MEDS: traMADoL HCL 50 MG TABLET PO (03:56)
== END 2022-08-05 03:56 | disposition home or self-care (01) ==
PROVIDERS: Emergency Provider Internal Medicine; PCP Internal Medicine
DX: S22.42XA Multiple fractures of ribs, left side, initial encounter for closed fracture (principal); R10.12 Left upper quadrant pain; X58.XXXA Exposure to other specified factors, initial encounter; Y93.9 Activity, unspecified; Y92.9 Unspecified place or not applicable; Y99.9 Unspecified external cause status; Z79.899 Other long term (current) drug therapy
CPT/HCPCS: 99283

== ENCOUNTER 2022-09-06 16:59 | Emergency (ER) | payer OTHER, SELFPAY ==
--- NOTE | ~2022-09-06 | XR_ITS ---
Examination: XR ankle RT 2V, XR foot RT 2V Indication: fall, pain 3 weeks Comparison: No pertinent prior studies are currently available for comparison. Technique: 2 views of the ankle with 3 views of the right foot including a lateral view of the foot and ankle Findings: Right ankle: Mild soft tissue swelling laterally. There is ossification along the interosseous ligament between the distal tibia and fibula which is chronic in nature. No superimposed fracture or dislocation seen. Ankle mortise appears to be intact. Right foot: Obliquely oriented fracture through the diaphysis of the fifth metatarsal with associated soft tissue swelling. No additional acute fracture seen. Mild degenerative changes first MTP joint and first IP joint. XR/XR ankle RT 2V Impression: Obliquely oriented fracture through the diaphysis of the fifth metatarsal with associated soft tissue swelling. Chronic appearing and degenerative changes otherwise.
--- NOTE | ~2022-09-06 | XR_ITS ---
Examination: XR ankle RT 2V, XR foot RT 2V Indication: fall, pain 3 weeks Comparison: No pertinent prior studies are currently available for comparison. Technique: 2 views of the ankle with 3 views of the right foot including a lateral view of the foot and ankle Findings: Right ankle: Mild soft tissue swelling laterally. There is ossification along the interosseous ligament between the distal tibia and fibula which is chronic in nature. No superimposed fracture or dislocation seen. Ankle mortise appears to be intact. Right foot: Obliquely oriented fracture through the diaphysis of the fifth metatarsal with associated soft tissue swelling. No additional acute fracture seen. Mild degenerative changes first MTP joint and first IP joint. XR/XR foot RT 2V Impression: Obliquely oriented fracture through the diaphysis of the fifth metatarsal with associated soft tissue swelling. Chronic appearing and degenerative changes otherwise.
--- NOTE | 2022-09-06 17:11 | ED_ITS ---
HPI - General Adult General Chief complaint: Fall Stated complaint: ETOH Time Seen by Provider: 09/06/22 17:05 Source: patient Mode of arrival: EMS Limitations: no limitations History of Present Illness HPI narrative: Patient comes to the emergency room via EMS. Ems explains that they were [facility], a different patient sign a refusal form to come to the hospital, this patient, Mr Todd is asked EMS to bring him to the hospital. According to EMS, patient is intoxicated. Patient decided to come to the hospital because his right ankle hurts. Patient states that he hurt his ankle approximately 3 weeks ago, fell. Patient states that he has been evaluated at different hospital, upset he did not get admitted. At this time, patient has no complaints other than localized right-sided hip pain, denies any recent falls other than 3 weeks ago when he injured his ankle. Related Data Previous Rx's Medication Instructions Recorded ibuprofen 600 mg tablet 600 mg PO TID PRN pain #20 tabs 03/17/21 tramadol 50 mg tablet 50 mg PO Q6H PRN pain #15 tabs 04/06/21 colchicine 0.6 mg capsule 0.6 mg PO DAILY #14 caps 12/31/21 tramadol 50 mg tablet 50 mg PO Q6H PRN pain #20 tabs 08/05/22 Allergies Allergy/AdvReac Type Severity Reaction Status Date / Time No Known Allergies Allergy Verified 08/04/22 22:43 Review of Systems Review of Systems: Constitutional : No Weight loss, No Fever, No Chills, No Night Sweats, No Fatigue, No Malaise ENT/Mouth : No Hearing loss, No Ear Pain, No Nasal Congestion, No Sinus Pain, No Hoarseness, No sore throat, No Rhinorrhea, No Swallowing Difficulty Eyes: No Eye Pain, No Swelling, No Redness, No Foreign Body, No Discharge, No Vision Changes Cardiovascular : No Chest Pain, No SOB, No Dyspnea on Exertion, No Orthopnea, No Edema, No Palpitations Respiratory : No Cough, No Sputum, No Wheezing, No Smoke Exposure, No Dyspnea Gastrointestinal : No Nausea, No Vomiting, No Diarrhea, No Constipation, No abdominal Pain, No Hematochezia, No Melena Genitourinary : no irregular bleeding, No Dysuria, No Urinary Frequency, No Hematuria, No Urinary Incontinence, No Urgency, No Flank Pain, No Urinary Flow Changes, No Hesitancy Musculoskeletal : Complaining of right ankle and foot pain, No joint pain, No Myalgias, No Joint Swelling Skin : No Skin Lesions, No rash Neuro : No Weakness, No Numbness, No Paresthesias, No Loss of Consciousness, No Dizziness, No Headache Psych : No Anxiety/Panic, No Depression, No SI/HI/AH/VH, No Social Issues, Heme/Lymph: No Bruising, No Bleeding,No Lymphadenopathy Endocrine : No Polyuria, No Polydipsia, No Temperature Intolerance [facility] Past Medical History Medical History Alcohol abuse No pertinent past medical history Subdural hematoma Social History Social History Alcohol intake: current Alcohol intake frequency: 3 or more drinks per day Alcohol type: beer Patient Tobacco Use Status: Never used Tobacco Smoked in Last 30 Days: No Use of substances other than those prescribed or required for medical reasons: No Advance Directives: No Advance Directives Information Provided: No Current occupational status: unemployed Current occupation: rt hand Physical Exam ED Vital Signs: Vital Signs - 24 hr 09/06/22 17:12 09/06/22 17:16 09/06/22 18:04 Temperature 97.8 F 98.4 F Pulse Rate 89 89 55 Respiratory Rate 18 18 18 Blood Pressure 139/79 139/79 123/72 Pulse Oximetry 93 98 Oxygen Delivery Method Room Air Room Air BMI result Body Mass Index 26.0 Const Other: Appearance: Alert. Oriented X3. No acute distress. Eyes: Pupils equal, round and reactive to light. ENT: Pharynx normal. Neck: Normal inspection. Neck supple. No lymph nodes noted. No crepitus CVS: Normal heart rate and rhythm. Pulses normal. Normal S1 and S2 Respiratory: No respiratory distress. Breath sounds normal. No Wheezing. No rales Abdomen: Soft and nontender. No rigidity. No distention. Skin: Skin warm and dry. Normal skin color. Normal skin turgor. Extremities: No lower extremity edema. No Lacerations. No Rash, complaining of ecchymosis and swelling and pain in the right latter aspect of the foot Neuro: Oriented X 3. No motor deficit. No sensory deficit. Moving all extremities. No slurred speech. CN 2 through 12 grossly intact Psych: calm, cooperative, normal affect Course Course Course Narrative: -patient seems intoxicated but still coherent, able to answer questions and have a normal conversation. -x-ray of the foot/ankle pending Medical Decision Making Medical Decision Making [facility] Narrative: -patient has an obvious fracture in the right foot 5th metatarsal -I discussed the above-mentioned with Orthopedics, patient to be provided with a walking boot and will follow-up with orthopedics. -plan: Follow-up with orthopedics, for now, metabolize to freedom, patient has EtOH on board and discharge once sober -Physician observation started at 19:15 -20:05 I was informed by the patient's note was that the patient is refusing to use the walking boot. Seems the patient was seen at [facility] and also refused to use a boot. Patient refused crutches -patient struck to follow-up with orthopedics -patient ambulatory, clinically sober Radiology Impression Discussion of test interpretation with radiology: I have reviewed the radiologist's reading. Radiologist Impression: Findings: Right ankle: Mild soft tissue swelling laterally. There is ossification along the interosseous ligament between the distal tibia and fibula which is chronic in nature. No superimposed fracture or dislocation seen. Ankle mortise appears to be intact. Right foot: Obliquely oriented fracture through the diaphysis of the fifth metatarsal with associated soft tissue swelling. No additional acute fracture seen. Mild degenerative changes first MTP joint and first IP joint. XR/XR foot RT 2V Impression: Obliquely oriented fracture through the diaphysis of the fifth metatarsal with associated soft tissue swelling. Chronic appearing and degenerative changes otherwise. ? Discharge Plan Discharge Clinical Impression: Closed fracture of fifth metatarsal bone, Alcohol intoxication Patient Disposition: Home, Self-Care Instructions: Foot Fracture in Adults (ED), Abuse of Alcohol (ED) Additional Instructions: You may put weight on your foot as tolerated. Please follow-up with Orthopedics, call to set up an appointment. Is possible that you may need surgery. Please follow-up with your primary care physician tomorrow. If you have any worsening or new symptoms, please return to the emergency room or call 911 Prescriptions: No Action ibuprofen 600 mg tablet 600 mg PO TID PRN (Reason: pain) Qty: 20 0RF tramadol 50 mg tablet 50 mg PO Q6H PRN (Reason: pain) Qty: 15 0RF colchicine 0.6 mg capsule 0.6 mg PO DAILY Qty: 14 0RF tramadol 50 mg tablet 50 mg PO Q6H PRN (Reason: pain) Qty: 20 0RF Referrals: Liat Ford PA-C [Physician [employer]] - 09/08/22
[2022-09-06 17:12] VITALS: BP 139/79; BP 160/70; PULSE 89; PULSE 98; RESP 18; TEMP 36.6; O2SAT 93; O2SAT 95; BMI 26.0
[2022-09-06 17:16] VITALS: BP 139/79; PULSE 89; RESP 18; TEMP 36.9
--- NOTE | 2022-09-06 17:19 | PC.NURSE ---
Arrived ems from a [facility] where it was reported her was sleeping. States he is homeless and was at his friends house a few days ago and fell down the stairs injuring his ankle. Right ankle swollen and tender to touch Outside of right ankle swollen with purple bruising. Bruising also noted on the top of foot along bases of toes and along 2nd great toe. States he drank a few beers today. Also stated that he went to [facility] yesterday and they told him his foot was broken. Was given a boot and script for a walker that he says he will not be able to get until Thursday. States he does not want to use the boot because he does not like it.
[2022-09-06 18:04] VITALS: BP 123/72; PULSE 55; RESP 18; O2SAT 98
--- NOTE | 2022-09-06 19:24 | PC.NURSE ---
Pt refusing walking boot. States he was given one at [facility] but puts him at risk for falls. Provider made aware.
--- NOTE | 2022-09-06 20:07 | PC.NURSE ---
Pt asking what time it is. Made aware of time and plan for discharge. Pt states no i need to stay til 10 and you guys didnt even give me nothin' for my pain. Offered tylenol or ibuprofen and pt refuses stating no i want something better. Provider made aware, still plan for discharge.
== END 2022-09-06 20:20 | disposition home or self-care (01) ==
PROVIDERS: Emergency Provider Emergency Medicine
DX: S92.351A Displaced fracture of fifth metatarsal bone, right foot, initial encounter for closed fracture (principal); F10.129 Alcohol abuse with intoxication, unspecified; Y90.9 Presence of alcohol in blood, level not specified; W19.XXXA Unspecified fall, initial encounter; Y93.9 Activity, unspecified; Y92.9 Unspecified place or not applicable; Y99.9 Unspecified external cause status; Z79.899 Other long term (current) drug therapy
CPT/HCPCS: 29515; 73600; 73620; 99284

== ENCOUNTER 2022-09-22 19:40 | Emergency (ER) | payer OTHER, SELFPAY ==
--- NOTE | ~2022-09-22 | CT_ITS ---
EXAMINATION: CT HEAD WITHOUT CONTRAST (STROKE PROTOCOL) CLINICAL INFORMATION: Stroke protocol. Unable to move left arm/leg. Slurred speech. COMPARISON: 07/30/2021 TECHNIQUE: Multidetector volumetric imaging of the head was performed without intravenous contrast material. Examination is slightly limited by patient motion. This CT examination was performed using dose optimization techniques as appropriate, variously including the following: *Automated exposure control *Adjustment of mA and/or kV according to patient size (this includes techniques or standardized protocols for targeted exams where dose is matched to indication/reason for exam; i.e. extremities or head) *Use of iterative reconstruction technique Dose: 827 mGy-cm FINDINGS: There is a hyperdense right holohemispheric subdural hematoma which produces significant mass effect upon the underlying right cerebral hemisphere, most pronounced at the posterior frontal and parietal lobes, measuring up to 1.6 cm in thickness. Right to left midline shift measures 9 mm. There is diffuse sulcal effacement of the right hemisphere. No appreciable uncal or transtentorial herniation. There is a small low-attenuation extra-axial collection overlying the left cerebral hemisphere deep to the site of prior craniotomy, likely a chronic collection. Parenchymal attenuation appears normal without evidence of acute territorial infarction. There is mass effect upon the right lateral ventricle without complete effacement. Volume loss is likely present in the left cerebral hemisphere with enlargement of the left lateral ventricle. No acute osseous abnormalities. Chronic left craniotomy flap appears appropriately positioned. The sinuses and mastoid air cells are clear. CT/CT head for stroke IMPRESSION: Acute right holohemispheric subdural hematoma with significant mass effect upon the underlying right cerebral hemisphere and 9 mm of [id number] midline shift. This critical result was discussed with Dr. Chapin at 8:10 PM on 09/22/2022. It was ascertained that the content and urgency of the report was understood at the time of direct communication.
--- NOTE | ~2022-09-22 | CT_ITS ---
EXAMINATION: CERVICAL SPINE CT WITHOUT CONTRAST CLINICAL INFORMATION: Fall. Rule out fracture. COMPARISON: 11/29/2021 TECHNIQUE: Multidetector volumetric imaging was obtained through the cervical spine without intravenous contrast. Multiplanar reconstructed images in coronal and sagittal orientations were submitted. This CT examination was performed using dose optimization techniques as appropriate, variously including the following: *Automated exposure control *Adjustment of mA and/or kV according to patient size (this includes techniques or standardized protocols for targeted exams where dose is matched to indication/reason for exam; i.e. extremities or head) *Use of iterative reconstruction technique DOSE: 463 mGy-cm FINDINGS: Vertebral body heights are normal. No fractures of the vertebral bodies or posterior elements. Vertebral alignment is normal. No subluxation. The craniocervical and atlantoaxial articulations are normal. Congenital fusion of C2-C3. Intervertebral disc heights are otherwise normal. Tiny endplate osteophytes at C5-C6. Facet joints are normal aside from the fused C2-C3 level. Central canal and neural foramina appear patent without appreciable stenoses. Endotracheal tube is in place, deviated to the left by the tongue. Assessment of the tongue and oral cavity is limited by the metallic hardware from the dental amalgam in the teeth. No prevertebral soft tissue swelling. Thyroid gland is unremarkable. Imaged portions of the lung apices are clear. CT/CT cervical spine wo IV con IMPRESSION: 1. No acute fracture or malalignment in the cervical spine. 2. Congenital fusion of C2-C3.
--- NOTE | 2022-09-22 19:49 | ECG_ITS ---
Test Reason : ETOH WD Blood Pressure : / mmHG Vent. Rate : 087 BPM Atrial Rate : 087 BPM P-R Int : 140 ms QRS Dur : 110 ms QT Int : 380 ms P-R-T Axes : 017 -13 036 degrees QTc Int : 457 ms Normal sinus rhythm Normal ECG No previous ECGs available Referred By: Joann Chapin Electronically Signed By:
[2022-09-22 19:50] VITALS: BP 145/68; PULSE 70; O2SAT 96; BMI 28.3
[2022-09-22] MEDS: LORazepam 2 MG/ML VIAL IVPUSH (19:54)
--- NOTE | 2022-09-22 20:11 | ED.AMS ---
HPI - Altered Mental Status General Chief Complaint: Altered Mental Status Stated Complaint: stroke alert,droop/r weak,+sz,+etoh use per ems Time Seen by Provider: 09/22/22 19:59 Source: EMS Mode of arrival: EMS Limitations: altered mental status History of Present Illness HPI narrative: Patient comes to the emergency room via ambulance. Bystanders found the patient unresponsive. Patient was given 4 mg of Narcan by bystanders, patient did not wake up. When EMS arrived, patient was awake, slurring speech, seems that patient is unable to move the left side of his upper and lower extremities. Patient too altered to give any further history Related Data Previous Rx's Medication Instructions Recorded ibuprofen 600 mg tablet 600 mg PO TID PRN pain #20 tabs 03/17/21 tramadol 50 mg tablet 50 mg PO Q6H PRN pain #15 tabs 04/06/21 colchicine 0.6 mg capsule 0.6 mg PO DAILY #14 caps 12/31/21 tramadol 50 mg tablet 50 mg PO Q6H PRN pain #20 tabs 08/05/22 Allergies Allergy/AdvReac Type Severity Reaction Status Date / Time No Known Allergies Allergy Unverified 09/22/22 19:48 Review of Systems Review of Systems: Yes Unobtainable due to mental status PMFSH Past Medical History Medical History Alcohol abuse No pertinent past medical history Subdural hematoma Social History Social History Alcohol intake: current Alcohol intake frequency: 3 or more drinks per day Alcohol type: beer Patient Tobacco Use Status: Never used Tobacco Advance Directives: No Advance Directives Information Provided: No Current occupational status: unemployed Current occupation: rt hand Physical Exam ED Vital Signs: Vital Signs - 24 hr 09/22/22 20:28 09/22/22 20:42 09/22/22 20:43 Pulse Rate 118 H 93 94 Respiratory Rate 17 25 H 22 H Blood Pressure 144/109 H 140/101 H 140/101 H Pulse Oximetry 99 100 100 Oxygen Delivery Method Mechanical Ventilation BMI result Body Mass Index 24.6 Const Other: Appearance: Somnolent, arousable, seems very confused Eyes: Pupils equal, round and reactive to light. ENT: Pharynx normal. Neck: Normal inspection. Neck supple. No lymph nodes noted. No crepitus CVS: Normal heart rate and rhythm. Pulses normal. Normal S1 and S2 Respiratory: No respiratory distress. Breath sounds normal. No Wheezing. No rales Abdomen: Soft and nontender. No rigidity. No distention. Skin: Skin warm and dry. Normal skin color. Normal skin turgor. Extremities: No lower extremity edema. No Lacerations. No Rash Neuro: Patient arousable, follows some commands, difficulty following directions but seems that he is trying. Patient unable to move the left upper and lower extremity, strength 1/5 in lower extremity on the left, 0/5 on the left upper extremity Psych: Confused NIH Stroke Scale Level of Consciousness: Not Alert; requires repeated stimulation, or strong of painful stim. Level of Consciousness Questions: Answers neither question correctly Level of Consciousness Commands: Performs neither task correctly Best Gaze: Normal Visual: No visual loss Facial Palsy: Partial paralysis Motor Arm (Right): No drift Motor Arm (Left): No effort against gravity Motor Leg (Right): No drift Motor Leg (Left): No effort against gravity Limb Ataxia: Absent Sensory: Normal Best Language: Mild to moderate aphasia Dysarthia: Mild to moderate dysarthria Extinction and Inattention: No abnormality Score: 16 Course Course Course Narrative: -patient known to drink alcohol heavily -patient has an NIH score 16 -when patient was in the CT scan, patient had a tonic-clonic seizure. 2 mg of Ativan were given IV. Patient was started as well on Keppra 1500 mg -my interpretation of CT scan, large subdural hematoma on the right side, there is approximately a 1 cm [id number] shift. -patient was intubated, 20 mg of etomidate, 50 mg of rocuronium, 7.5 tube -vital stable, blood pressure 140/101, heart rate 94, patient is intubated, oxygen saturation 100% -I discussed the patient with Dr. Penny from the trauma team from [facility], patient being transferred as a trauma category 1 Medications Administered Generic Name Dose Route Start Last Admin Trade Name Freq PRN Reason Stop Dose Admin Propofol 1,000 mg in 100 mls @ 0 mls/hr 09/22/22 20:45 09/22/22 20:58 Diprivan IVCONT 50 mcg/kg/min .Q0M DAMON 22.65 mls/hr Titration Protocol Per Protocol Discontinued Medications Generic Name Dose Route Start Last Admin Trade Name Jethro PRN Reason Stop Dose Admin Sodium Chloride 1,000 mls @ 999 mls/hr 09/22/22 19:49 09/22/22 20:18 Ns IVCONT 09/22/22 20:49 999 mls/hr .Q1H1M ONE Administration Levetiracetam 1,500 mg in 100 mls @ 400 mls/hr 09/22/22 19:58 09/22/22 20:32 Keppra IV 09/22/22 20:12 Infused ONCE ONE Infusion Lorazepam 2 mg 09/22/22 19:58 09/22/22 19:54 Lorazepam 2 Mg/Ml Vial IVPUSH 09/22/22 19:59 2 mg ONCE ONE Administration Medical Decision Making Medical Decision Making MDM Narrative: -I discussed the CT scan with [facility], patient does have a right 1.6 cm in thickness holohemispheric subdural hematoma which produces significant mass effect and a [id number] midline shift of 9 mm -of note, patient was transferred from this facility to [facility] last year on 07/30/2021 for a subdural hematoma on the left -patient maxed out on the propofol drip. Patient moving, patient will be started on a Versed drip. Admission/Observation Consideration of admission/observation: Escalation of care including admission/observation considered Consult Healthcare Provider Management of the patient was discussed with: Reservations Specialist Lab Data MDM Lab Attestation statement: I reviewed the patient's lab results. 09/22/22 20:14 09/22/22 20:14 Labs: Lab Results 09/22/22 09/22/22 09/22/22 Range/Units 20:08 20:14 20:14 WBC 5.9 (4.8-10.8) X10*3/uL RBC 3.78 L (4.60-5.80) X10*6/uL Hgb 12.3 L (14.0-18.0) g/dl Hct 36.4 L (42.0-52.0) % MCV 96.3 (80.0-98.0) fL MCH 32.5 (27.0-33.0) pg MCHC 33.8 (31.0-36.0) g/dl RDW 12.0 (11.0-16.0) % Plt Count 162 D (160-400) X10*3/uL MPV 9.4 (9.4-12.4) fL Immature Gran % (Auto) 0.2 (0.0-0.4) % Neut % (Auto) 69.0 (45-73) % Lymph % (Auto) 21.0 (20-40) % [place]mort[place] % (Auto) 8.3 (2-11) % Eos % (Auto) 0.7 (0-4) % Baso % (Auto) 0.8 (0-2) % Lymph # (Auto) 1.2 (1.2-4.9) X10*3/uL Th[place]morton # (Auto) 0.5 (0.1-1.2) X10*3/uL Eos # (Auto) 0.0 (0.0-0.4) X10*3/uL Baso # (Auto) 0.1 (0.0-0.2) X10*3/uL Abs Immat Gran (auto) 0.01 (0.00-0.03) X10*3/uL Absolute Neuts (auto) 4.1 (2.0-8.3) x10*3/uL Absolute Nucleated RBC 0.000 (0.0-0.012) X10*3/uL Nucleated RBC % (auto) 0.0 (0.0-0.2) /100WBC Whole Blood PT 13.0 (11.1-13.5) sec Whole Blood INR 1.1 (0.9-1.1) Sodium 144 (135-145) mmol/L Potassium 3.6 (3.3-5.1) mmol/L Chloride 101 (96-108) mmol/L Carbon Dioxide 24 (22-29) mmol/L Anion Gap 23 H (12-20) BUN 10 (9-16) mg/dL Creatinine 0.83 (0.5-1.4) mg/dL Estim Creat Clear Calc 104.1 Estimated GFR > 60 Random Glucose 120 H (60-115) mg/dL Lactic Acid (0.5-2.0) mmol/L Calcium 9.7 (8.4-10.2) mg/dL Magnesium 2.0 (1.6-2.6) mg/dL Total Bilirubin 0.6 (0.0-1.0) mg/dL Direct Bilirubin 0.3 (0.0-0.5) mg/dL AST 64 H (5-37) U/L ALT 63 H (0-40) U/L Alkaline Phosphatase 113 (39-117) U/L Troponin I High Sens (<3.5-35.0) ng/L Total Protein 8.0 (6.5-8.0) g/dL Albumin 4.5 (3.5-5.0) g/dL Ethyl Alcohol mg/dL COVID-19 (GAVIN) (Negative) COVID-19 Clin Com 09/22/22 09/22/22 09/22/22 Range/Units 20:14 20:14 20:14 WBC (4.8-10.8) X10*3/uL RBC (4.60-5.80) X10*6/uL Hgb (14.0-18.0) g/dl Hct (42.0-52.0) % MCV (80.0-98.0) fL MCH (27.0-33.0) pg MCHC (31.0-36.0) g/dl RDW (11.0-16.0) % Plt Count (160-400) X10*3/uL MPV (9.4-12.4) fL Immature Gran % (Auto) (0.0-0.4) % Neut % (Auto) (45-73) % Lymph % (Auto) (20-40) % Throckmorton % (Auto) (2-11) % Eos % (Auto) (0-4) % Baso % (Auto) (0-2) % Lymph # (Auto) (1.2-4.9) X10*3/uL [place]morton # (Auto) (0.1-1.2) X10*3/uL Eos # (Auto) (0.0-0.4) X10*3/uL Baso # (Auto) (0.0-0.2) X10*3/uL Abs Immat Gran (auto) (0.00-0.03) X10*3/uL Absolute Neuts (auto) (2.0-8.3) x10*3/uL Absolute Nucleated RBC (0.0-0.012) X10*3/uL Nucleated RBC % (auto) (0.0-0.2) /100WBC Whole Blood PT (11.1-13.5) sec Whole Blood INR (0.9-1.1) Sodium (135-145) mmol/L Potassium (3.3-5.1) mmol/L Chloride (96-108) mmol/L Carbon Dioxide (22-29) mmol/L Anion Gap (12-20) BUN (9-16) mg/dL Creatinine (0.5-1.4) mg/dL Estim Creat Clear Calc Estimated GFR Random Glucose (60-115) mg/dL Lactic Acid 6.9 H* (0.5-2.0) mmol/L Calcium (8.4-10.2) mg/dL Magnesium (1.6-2.6) mg/dL Total Bilirubin (0.0-1.0) mg/dL Direct Bilirubin (0.0-0.5) mg/dL AST (5-37) U/L ALT (0-40) U/L Alkaline Phosphatase (39-117) U/L Troponin I High Sens < 2.7 (<3.5-35.0) ng/L Total Protein (6.5-8.0) g/dL Albumin (3.5-5.0) g/dL Ethyl Alcohol 279 mg/dL COVID-19 (GAVIN) (Negative) COVID-19 Clin Com 09/22/22 Range/Units 20:14 WBC (4.8-10.8) X10*3/uL RBC (4.60-5.80) X10*6/uL Hgb (14.0-18.0) g/dl Hct (42.0-52.0) % MCV (80.0-98.0) fL MCH (27.0-33.0) pg MCHC (31.0-36.0) g/dl RDW (11.0-16.0) % Plt Count (160-400) X10*3/uL MPV (9.4-12.4) fL Immature Gran % (Auto) (0.0-0.4) % Neut % (Auto) (45-73) % Lymph % (Auto) (20-40) % Th[place]morton % (Auto) (2-11) % Eos % (Auto) (0-4) % Baso % (Auto) (0-2) % Lymph # (Auto) (1.2-4.9) X10*3/uL [place]mort[place] # (Auto) (0.1-1.2) X10*3/uL Eos # (Auto) (0.0-0.4) X10*3/uL Baso # (Auto) (0.0-0.2) X10*3/uL Abs Immat Gran (auto) (0.00-0.03) X10*3/uL Absolute Neuts (auto) (2.0-8.3) x10*3/uL Absolute Nucleated RBC (0.0-0.012) X10*3/uL Nucleated RBC % (auto) (0.0-0.2) /100WBC Whole Blood PT (11.1-13.5) sec Whole Blood INR (0.9-1.1) Sodium (135-145) mmol/L Potassium (3.3-5.1) mmol/L Chloride (96-108) mmol/L Carbon Dioxide (22-29) mmol/L Anion Gap (12-20) BUN (9-16) mg/dL Creatinine (0.5-1.4) mg/dL Estim Creat Clear Calc Estimated GFR Random Glucose (60-115) mg/dL Lactic Acid (0.5-2.0) mmol/L Calcium (8.4-10.2) mg/dL Magnesium (1.6-2.6) mg/dL Total Bilirubin (0.0-1.0) mg/dL Direct Bilirubin (0.0-0.5) mg/dL AST (5-37) U/L ALT (0-40) U/L Alkaline Phosphatase (39-117) U/L Troponin I High Sens (<3.5-35.0) ng/L Total Protein (6.5-8.0) g/dL Albumin (3.5-5.0) g/dL Ethyl Alcohol mg/dL COVID-19 (GAVIN) Negative (Negative) COVID-19 Clin Com See Note Independent Interpretation I performed an independent interpretation of an: CT Scan Radiology Impression Discussion of test interpretation with radiology: I have reviewed the radiologist's reading. Radiologist Impression: FINDINGS: There is a hyperdense right holohemispheric subdural hematoma which produces significant mass effect upon the underlying right cerebral hemisphere, most pronounced at the posterior frontal and parietal lobes, measuring up to 1.6 cm in thickness. Right to left midline shift measures 9 mm. There is diffuse sulcal effacement of the right hemisphere. No appreciable uncal or transtentorial herniation. There is a small low-attenuation extra-axial collection overlying the left cerebral hemisphere deep to the site of prior craniotomy, likely a chronic collection. Parenchymal attenuation appears normal without evidence of acute territorial infarction. There is mass effect upon the right lateral ventricle without complete effacement. Volume loss is likely present in the left cerebral hemisphere with enlargement of the left lateral ventricle. No acute osseous abnormalities. Chronic left craniotomy flap appears appropriately positioned. The sinuses and mastoid air cells are clear. CT/CT head for stroke IMPRESSION: Acute right holohemispheric subdural hematoma with significant mass effect upon the underlying right cerebral hemisphere and 9 mm of [id number] midline shift. Procedures Intubation Time out performed: Yes sedative: Etomidate Mg Given: 20 paralytic: Rocuronium Mg Given: 50 Laryngoscope: other (GlideScope) ET Tube Size: 7.5 ET Tube Uncuffed: No Tube Secured Depth (cm): 23 Tube Secured Location: lips Tube Placement Confirmation: visualized tube passing through cords, equal breath sounds bilaterally, no breath sounds over epigastrium and confirmation by capnometry Patient Tolerated Procedure: well and no complications Intubation Complications: none Critical Care Time Critical Care Time Critical Care Time: Yes Total Critical Care Time: 60 Attestation: I have personally provided critical care time. Time includes review of lab data, radiology results, discussion with consultants, and monitoring for potential decompensation. Intervention performed as documented. Discharge Plan Discharge Clinical Impression: Acute subdural hematoma Patient Disposition: [facility] Transfer Details: [facility] Trauma category 1 transfer Prescriptions: No Action ibuprofen 600 mg tablet 600 mg PO TID PRN (Reason: pain) Qty: 20 0RF tramadol 50 mg tablet 50 mg PO Q6H PRN (Reason: pain) Qty: 15 0RF colchicine 0.6 mg capsule 0.6 mg PO DAILY Qty: 14 0RF tramadol 50 mg tablet 50 mg PO Q6H PRN (Reason: pain) Qty: 20 0RF
[2022-09-22] MEDS: 0.9 % Sodium Chloride 1,000 ML 999 ML IVCONT ×2 (20:18→21:22)
[2022-09-22 20:20] LABS: MANUAL DIFF FLAG NO
[2022-09-22] MEDS: levETIRAcetam in NaCl (iso-os) 1,500 MG/100 ML PIGGYBACK 400 MG IV (20:23)
[2022-09-22] MEDS: Etomidate 20 MG/10 ML VIAL IVPUSH (20:23)
[2022-09-22] MEDS: Rocuronium Bromide 50 MG/5 ML VIAL IVPUSH (20:23)
[2022-09-22 20:28] VITALS: BP 144/109; PULSE 118; RESP 17; O2SAT 99
--- NOTE | 2022-09-22 20:28 | PC.NURSE ---
Pt found on the steps outside of building, minimally responsive. EMS reports complete left sided deficits, right sided facial droop, and aphasia/drooling. EMS report a tonic clonic seizure that lasted approx 125 seconds and resolved on its own. Pt is suspected ETOH, EMS found a bottle of alcohol near pt on scene. Pt was unable to give name or information to EMS. Bystander on scene gave 4 mg Narcan with no response. Pt was able to tell us his name in the ER. Pt is still minimally responsive with complete left side deficits upon arrival. Pt has hx of subdural hematoma in the past. Pt began to seize in CT, was given [address] obtained, pt has bilateral IVs in the AC. Labs sent. Dr Chapin at bedside to intubate pt.
[2022-09-22 20:30] LABS: Basophils Absolute Auto 0.1 X10*3/uL (0.0-0.2); Basophils Percent Auto 0.8 % (0-2); Eosinophils Percent Auto 0.7 % (0-4); Hematocrit 36.4 % (42.0-52.0); Hemoglobin 12.3 g/dl (14.0-18.0); Imm Gran Abs Auto 0.01 X10*3/uL (0.00-0.03); Imm Gran Pct Auto 0.2 % (0.0-0.4); Lymphocytes Absolute Auto 1.2 X10*3/uL (1.2-4.9); Mean Corpuscular HGB Conc 33.8 g/dl (31.0-36.0); Mean Corpuscular Hemoglobin 32.5 pg (27.0-33.0); Mean Corpuscular Volume 96.3 fL (80.0-98.0); Mean Platelet Volume 9.4 fL (9.4-12.4); Monocytes Absolute Auto 0.5 X10*3/uL (0.1-1.2); Monocytes Percent Auto 8.3 % (2-11); Neutrophils Absolute Auto 4.1 x10*3/uL (2.0-8.3); Platelet Count 162 X10*3/uL (160-400); Red Blood Count 3.78 X10*6/uL (4.60-5.80); White Blood Count 5.9 X10*3/uL (4.8-10.8)
[2022-09-22 20:36] VITALS: BMI 24.6
[2022-09-22 20:39] LABS: Ethanol 279 mg/dL
[2022-09-22 20:42] VITALS: BP 140/101; PULSE 93; RESP 25; O2SAT 100
[2022-09-22] MEDS: propofoL 1,000 MG/100 ML VIAL 13.59 MG IVCONT (20:42)
[2022-09-22 20:43] VITALS: BP 140/101; PULSE 94; RESP 22; O2SAT 100
[2022-09-22 20:43] LABS: COVID-19 Test Negative (Negative); IDNOW Serial# BCCEAD1C
[2022-09-22 20:46] LABS: Alanine Aminotransferase 63 U/L (0-40); Albumin Level 4.5 g/dL (3.5-5.0); Alkaline Phosphatase 113 U/L (39-117); Anion Gap 23 (12-20); Aspartate Amino Transferase 64 U/L (5-37); Bilirubin Direct 0.3 mg/dL (0.0-0.5); Bilirubin Total 0.6 mg/dL (0.0-1.0); Blood Urea Nitrogen 10 mg/dL (9-16); Calcium 9.7 mg/dL (8.4-10.2); Carbon Dioxide 24 mmol/L (22-29); Chloride 101 mmol/L (96-108); Creatinine Clr Calc Pharmacy 104.1; Estimated Glomerular Filt Rate > 60; Glucose Random 120 mg/dL (60-115); Potassium 3.6 mmol/L (3.3-5.1); Sodium 144 mmol/L (135-145)
[2022-09-22 20:47] LABS: Lactic Acid 6.9 mmol/L (0.5-2.0)
[2022-09-22 20:50] LABS: Troponin-I High Sensitivity < 2.7 ng/L (<3.5-35.0)
[2022-09-22 20:56] LABS: ~PT, ~INR - Anti Coag Clinic 1.1 (0.9-1.1)
[2022-09-22 21:17] VITALS: BP 139/92; PULSE 101; RESP 19; O2SAT 100
[2022-09-22] MEDS: Midazolam HCl/NS 50 MG/50 ML PLAST..BAG IVCONT (21:17)
[2022-09-22 21:20] VITALS: PULSE 108; O2SAT 100
--- NOTE | 2022-09-22 21:28 | MHC.EDTECH ---
pt still here in er on er stretcher w/alo @ bedside @ this time
[2022-09-22] MEDS: Ketamine HCl/NS 100 MG/10 ML SYRINGE 20 MG IVPUSH (21:30)
--- NOTE | 2022-09-22 21:33 | MHC.EDTECH ---
alo leaves the er with this pt @ this time
--- NOTE | 2022-09-22 21:41 | PC.NURSE ---
Report given to Renetta AGUERO at [facility] ER. Pt transferred to EMS stretcher and equipment. Pt continued to fight sedation and pull at cords, Dr Chapin at bedside ordered medications. Pt left with EMS on propofol 50 mcg/kg/hr, versed 8mg/hr, and IV Push 200 of ketamine. Pt was sedated upon discahrge with EMS.
[2022-09-22 22:18] LABS: Reflex Lactate? Lactic Acid Added
[2022-09-23 06:57] LABS: Glucose, Whole Blood 117 mg/dL (60-115)
--- NOTE | 2023-07-22 07:55 | PC.NURSE ---
PT MED X 1 WITH MORPHINE 4MG IV AT 0755
== END 2022-09-22 21:41 | disposition short-term general hospital (02) ==
PROVIDERS: Emergency Provider Emergency Medicine
DX: S06.5XAA Traumatic subdural hemorrhage with loss of consciousness status unknown, initial encounter (principal); R51.9 Headache, unspecified; M54.2 Cervicalgia; X58.XXXA Exposure to other specified factors, initial encounter; Y93.9 Activity, unspecified; Y92.9 Unspecified place or not applicable; Y99.9 Unspecified external cause status; Z20.822 Contact with and (suspected) exposure to COVID-19; Z20.828 Contact with and (suspected) exposure to other viral communicable diseases; Z79.899 Other long term (current) drug therapy
CPT/HCPCS: 36415; 70450; 72125; 80048; 80076; 80307; 82947; 83605; 83735; 84484; 85025; 85610; 87040; 87635; 93005; 96361; 96365; 96367; 96375; 99285; J1953; J2060; J2251